=== PATIENT | male | born 1980 | race Caucasian/White ===

== ENCOUNTER 2020-09-14 20:02 | Inpatient (IN) | payer MEDICARE, OTHER ==
[2020-09-14] MEDS ORDERED: HYDROmorphone 1 MG/ML 1 ML SYRINGE IVP STA (20:09)
--- NOTE | 2020-09-14 20:11 | ED ---
Chest Pain HPI - General Stated Complaint: Chest Pain Time Seen by Provider: 09/14/20 20:02 Source: patient, EMS, RN notes reviewed Mode of arrival: EMS - History of Present Illness Initial Comments: this is a 40-year-old male with a prior history of heart disease and heart attack who also states he has some aortic notation from Marfan's disease who states he had the onset this morning of retrosternal chest pain was sharp in nature and radiating to his left arm proximal T7 or 8/10 severity nothing makes it better nothing makes it worse. No cough no fevers chills sweats no phlegm production he states feels identical to his previous heart attack however. He also states he is ALLERGIC to nitroglycerin gets a rash and hives from it. He did get aspirin in route MD Complaint: chest pain - Related Data Allergies Allergy/AdvReac Type Severity Reaction Status Date / Time nitroglycerin AdvReac Itching Verified 09/14/20 20:16 Review of Systems ROS Statement: Those systems with pertinent positive or pertinent negative responses have been documented in the HPI. ROS Other: All systems not noted in ROS Statement are negative. EKG Findings - EKG Results: EKG: interpreted by AMY, sinus rhythm (Sinus rhythm rate 64. Interval 144 QRS duration 110 daily since QTC 374/385 rightward axis and complete right bundle- branch block. No old EKGs currently available for comparison.) Past Medical History Past Medical History: Coronary Artery Disease (CAD), Chest Pain / Angina, Neurologic Disorder History of Any Multi-Drug Resistant Organisms: None Reported Past Surgical History: Appendectomy, Heart Catheterization Past Psychological History: No Psychological Hx Reported Smoking Status: Current every day smoker Past Alcohol Use History: None Reported Past Drug Use History: None Reported General Exam - General Exam Comments Initial Comments: is a well-developed asthenic appearing male who is awake alert oriented 3 General appearance: alert, anxious Head exam: Present: atraumatic, normocephalic, normal inspection Eye exam: Present: normal appearance, PERRL, EOMI. Absent: scleral icterus, conjunctival injection, periorbital swelling ENT exam: Present: normal exam, mucous membranes moist Neck exam: Present: normal inspection, full ROM, other (no stridor JVD or bruits). Absent: tenderness, meningismus, lymphadenopathy Respiratory exam: Present: normal lung sounds bilaterally. Absent: respiratory distress, wheezes, rales, rhonchi, stridor, chest wall tenderness Cardiovascular Exam: Present: regular rate, normal rhythm, normal heart sounds. Absent: systolic murmur, diastolic murmur, rubs, gallop, clicks GI/Abdominal exam: Present: soft, normal bowel sounds. Absent: distended, tenderness, guarding, rebound, rigid, bruit, pulsatile mass, hernia Extremities exam: Present: normal inspection, full ROM, normal capillary refill. Absent: tenderness, pedal edema, joint swelling, calf tenderness Back exam: Present: normal inspection Neurological exam: Present: alert, oriented X3, CN II-XII intact Psychiatric exam: Present: normal affect, normal mood Skin exam: Present: warm, dry, intact, normal color. Absent: rash Course Vital Signs 09/14/20 20:06 Temperature 98.3 F Pulse Rate 64 Respiratory 18 Rate Blood Pressure 151/106 O2 Sat by Pulse 100 Oximetry Chest Pain MDM - MDM I did review the imaging no acute findings. I did discuss findings with patient family as well as with Dr. Josue's service. Patient be admitted with cardiology consultation. Initial enzymes and EKG. A be unremarkable for acute findings. Patient still has some chest pain however. Critical Care Time Critical Care Time: Yes Total Critical Care Time: 31 Critical Care Time: 31 minutes of critical care time includes initial presentation with history physical labs x-rays reevaluation patient to responsive therapy discuss with the patient family regarding findings discussion with the EMS personnel arrival. Admission orders documentation the above Disposition Clinical Impression: Chest pain, Unstable angina pectoris Disposition: ADMITTED IP TO THIS [facility] Condition: Fair Referrals: None,Stated [Primary Care Provider] - 1-2 days
[2020-09-14 20:34] LABS: Basophils # (A) 0.1 k/uL (0-0.2); Basophils % (A) 1 %; Eosinophils # (A) 0.4 k/uL (0-0.7); Eosinophils % (A) 5 %; HCT 45.7 % (39.0-53.0); Lymphocytes # (A) 2.3 k/uL (1.0-4.8); Lymphocytes % (A) 31 %; MCH 32.4 pg (25.0-35.0); MCHC 32.8 g/dL (31.0-37.0); MCV 98.8 fL (80.0-100.0); Mean Platelet Volume 7.7; Monocytes # (A) 0.4 k/uL (0-1.0); Monocytes % (A) 6 %; Neutrophils # (A) 4.1 k/uL (1.3-7.7); Neutrophils % (A) 55 %; Platelet Count 266 k/uL (150-450); RBC 4.62 m/uL (4.30-5.90); RDW 12.2 % (11.5-15.5); WBC 7.4 k/uL (3.8-10.6)
[2020-09-14 21:03] LABS: ALT 14 U/L (4-49); AST 18 U/L (17-59); African American GFR (CKD) >90 (>60 ml/min/1.73 sqM); Albumin 3.8 g/dL (3.5-5.0); Alkaline Phosphatase 67 U/L (38-126); Anion Gap 4 mmol/L; Blood Urea Nitrogen 13 mg/dL (9-20); Calcium 9.3 mg/dL (8.4-10.2); Carbon Dioxide 25 mmol/L (22-30); Chloride 108 mmol/L (98-107); Creatine Kinase 60 U/L (55-170); Glucose 91 mg/dL (74-99); Lipase 141 U/L (23-300); Non-African American GFR(CKD) >90 (>60 ml/min/1.73 sqM); Potassium 4.1 mmol/L (3.5-5.1); Sodium 137 mmol/L (137-145); Total Bilirubin 0.3 mg/dL (0.2-1.3); Total Protein 6.5 g/dL (6.3-8.2)
--- NOTE | 2020-09-14 21:07 | XR ---
EXAMINATION TYPE: XR chest 2V DATE OF EXAM: 09/14/2020 COMPARISON: NONE HISTORY: Chest pain TECHNIQUE: Frontal and lateral views of the chest are obtained. FINDINGS: There is no focal air space opacity, pleural effusion, or pneumothorax seen. The cardiac silhouette size is within normal limits. Atrial septal defect repair device is in place. The osseous structures are intact. IMPRESSION: No acute cardiopulmonary process.
[2020-09-14 21:09] LABS: D-Dimer 0.2 mg/L FEU (<0.60); INR 1.1 (<1.2); Partial Thromboplastin Time 26.9 sec (22.0-30.0); Prothrombin Time 10.8 sec (9.0-12.0)
[2020-09-14] MEDS ORDERED: fentaNYL (PF) 50 MCG/ML 2 ML AMP IVP STA (21:11)
[2020-09-14] MEDS ORDERED: HEPARIN SODIUM,PORCINE 5,000 UNIT/ML 1 ML VIAL IV ONE (21:14)
[2020-09-14] MEDS ORDERED: HEPARIN SOD,PORK IN 0.45% NACL 25,000 UNIT in 0.45% NACL 1 250ML.BAG IV SCH (21:15)
[2020-09-14] MEDS ORDERED: ORPHENADRINE 30 MG/ML 2 ML VIAL IVP STA (21:19)
[2020-09-14] MEDS: SODIUM CHLORIDE 0.9% 1,000 ML IV SCH (21:42)
[2020-09-15] MEDS: HYDROmorphone 1 MG/ML 1 ML SYRINGE IVP PRN ×6 (00:05→21:51)
[2020-09-15 03:30] LABS: Cholesterol 176 mg/dL (<200); HDL Cholesterol 29 mg/dL (40-60); LDL Cholesterol,Calculated 133 mg/dL (0-99); Triglycerides 70 mg/dL (<150)
--- NOTE | 2020-09-15 07:54 | P.HPIM ---
History of Present Illness This is a pleasant 38 years old male with possible history of coronary artery disease status post cardiac cath, Marfan syndrome with enlarged aorta. 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 Presents because of chest pain of 2 days' duration associated with numbness of left arm and left face, Patient's Chest pain central, radiated into the left arm about 7/10 in severity. Like heaviness Also patient is complaining of from the distal dizziness He denies any leg pain or swelling, no change in urine or bowel habits. No fever Patient smokes about 1 pack per day, he was counseled and he wants to quit and agrees to the nicotine patch Vitals stable except from slight bradycardia with heart rate around 54. unremarkable cbc, bmp, liver enzymes. serial troponin 3 less than 0.012. d- dimer is negative at 0.2 EKG showing normal sinus rhythm at [address] T changes Chest x-ray: No acute process by radiologist Emergency room patient was started on heparin drip and aspirin 81 mg daily which is home dose. Review of Systems CONSTITUTIONAL: No fever, no malaise, no fatigue. HEENT: No recent visual problems or hearing problems. Denied any sore throat. CARDIOVASCULAR: No orthopnea, PND, no palpitations, no syncope. PULMONARY: No shortness of breath, no cough, no hemoptysis. GASTROINTESTINAL: No diarrhea, no nausea, no vomiting, no abdominal pain. Normoactive bowel sounds. NEUROLOGICAL: No headaches, no weakness HEMATOLOGICAL: Denies any bleeding or petechiae. GENITOURINARY: Denies any burning micturition, frequency, or urgency. MUSCULOSKELETAL/RHEUMATOLOGICAL: Denies any joint pain, swelling, or any muscle pain. ENDOCRINE: Denies any polyuria or polydipsia. Past Medical History Past Medical History: Coronary Artery Disease (CAD), Chest Pain / Angina, Neurologic Disorder Additional Past Medical History / Comment(s): Marfan's, "enlarged aorta" History of Any Multi-Drug Resistant Organisms: None Reported Past Surgical History: Appendectomy, Heart Catheterization Past Psychological History: No Psychological Hx Reported Smoking Status: Current every day smoker Past Alcohol Use History: None Reported Past Drug Use History: None Reported - Past Family History Father Family Medical History: CVA/TIA, Hypertension, Myocardial Infarction ([place]) Additional Family Medical History / Comment(s): states he D/T brain aneurysm Mother Family Medical History: Hypertension Additional Family Medical History / Comment(s): states cancer runs on her side of the family Medications and Allergies Home Medications Medication Instructions Recorded Confirmed Type Aspirin EC [Ecotrin Low Dose] 81 mg PO DAILY 09/14/20 09/14/20 History Metoprolol Tartrate [Lopressor] 25 mg PO BID 09/14/20 09/14/20 History Allergies Allergy/AdvReac Type Severity Reaction Status Date / Time nitroglycerin AdvReac Itching Verified 09/14/20 22:32 Physical Exam Vitals: Vital Signs Temp Pulse Pulse Resp BP BP Pulse Ox 09/15/20 03:30 97.5 F L 50 L 16 101/63 97 09/15/20 00:13 98 F 54 L 17 112/70 100 09/14/20 22:42 53 L 12 123/83 98 09/14/20 21:54 57 L 12 120/87 98 09/14/20 20:06 98.3 F 64 18 151/106 100 Intake and Output 09/14/20 09/14/20 09/15/20 14:59 22:59 06:59 Intake Total 48.854 Balance 48.854 Intake: Intake, IV Titration 48.854 Amount Heparin Sod,Pork in 0.45% 48.854 NaCl 25,000 unit In 0.45 % NaCl 1 250ml.bag @ 12 UNITS/KG/HR 8.165 mls/hr IV .Q24H [facility] Rx#: [id number] Other: Voiding Method Toilet # Voids 2 Weight 68.039 kg 68.039 kg GENERAL: The patient is alert and oriented x3, not in any acute distress. Well developed, well nourished. HEENT: Pupils are round and equally reacting to light. EOMI. No scleral icterus. No conjunctival pallor. Normocephalic, atraumatic. No pharyngeal erythema. No thyromegaly. CARDIOVASCULAR: S1 and S2 present. No murmurs, rubs, or gallops. PULMONARY: Chest is clear to auscultation, no wheezing or crackles. ABDOMEN: Soft, nontender, nondistended, normoactive bowel sounds. No palpable organomegaly. MUSCULOSKELETAL: No joint swelling or deformity. EXTREMITIES: No cyanosis, clubbing, or pedal edema. NEUROLOGICAL: Gross neurological examination did not reveal any focal deficits. SKIN: No rashes. No petechiae Results CBC & Chem 7: 09/14/20 20:13 09/14/20 20:45 Labs: Abnormal Lab Results - Last 24 Hours (Table) 09/14/20 09/15/20 09/15/20 Range/Units 20:45 03:07 03:07 APTT 62.5 H (22.0-30.0) sec Chloride 108 H (98-107) mmol/L LDL Cholesterol, Calc 133 H (0-99) mg/dL HDL Cholesterol 29 L (40-60) mg/dL Thrombosis Risk Factor Assmnt - Choose All That Apply Each Factor Represents 1 point: Age 41-60 years Other Risk Factors: No Other congenital or acquired thrombophilia - If yes, enter type in comment: No Thrombosis Risk Factor Assessment Total Risk Factor Score: 1 Thrombosis Risk Factor Assessment Level: Low Risk Assessment and Plan Assessment: Chest pain, rule out cardiac causes. d-dimer is negative at 0.2 Numbness of the left face and arm with some dizziness Marfan syndrome History of enlarged aorta Plan: This is a pleasant 38 years old male who presents with chest pain, rule out cardiac causes with cardiology consult, we'll do serial troponin. Check echocardiogram. Also call for neurology consult for his numbness and dizziness with checking carotid duplex Labs and medication were reviewed.. Continue same treatment. Continue with symptomatic treatment. Resume home medication. Monitor lytes and vitals. DVT and GI prophylaxis. Further recommendations depends on the clinical course of the patient DVT prophylaxis: Subcutaneous heparin GI Prophylaxis: Pepcid
--- NOTE | 2020-09-15 08:47 | US ---
EXAMINATION TYPE: US carotid duplex BILAT DATE OF EXAM: 09/15/2020 COMPARISON: NONE CLINICAL HISTORY: numbness of face and left arm. Numbness EXAM MEASUREMENTS: RIGHT: Peak Systolic Velocity (PSV) cm/sec ----- Right CCA: 88.3 ----- Right ICA: 76.7 ----- Right ECA: 69.5 ICA/CCA ratio: 0.9 RIGHT: End Diastole cm/sec ----- Right CCA: 26.0 ----- Right ICA: 21.4 ----- Right ECA: 15.6 LEFT: Peak Systolic Velocity (PSV) cm/sec ----- Left CCA: 101 ----- Left ICA: 87.9 ----- Left ECA: 60.8 ICA/CCA ratio: 0.9 LEFT: End Diastole cm/sec ----- Left CCA: 33.8 ----- Left ICA: 34.9 ----- Left ECA: 10.9 VERTEBRALS (direction of flow): Right Vertebral: Antegrade Left Vertebral: Antegrade Rhythm: Normal No significant atherosclerotic change seen. No significant stenosis seen. IMPRESSION: No hemodynamically significant stenosis bilaterally. Criteria for Assigning % of Stenosis / Diameter reduction (Estimation based on the indirect measurements of the internal carotid artery velocities (ICA PSV). 1. Normal (no stenosis)=ICA PSV < 125 cm/s: ratio < 2.0: ICA EDV<40 cm/s. 2. Less than 50% stenosis=ICA PSV < 125 cm/s: ratio < 2.0: ICA EDV<40 cm/s. 3. 50 to 69% stenosis=ICA PSV of 125 to 230 cm/s: ration 2.0 ? 4.0: ICA EDV 40-100 cm/s. 4. Greater than 70% stenosis to near occlusion= ICA PSV > 230 cm/s: ratio > 4.0: ICA EDV > 100 cm/s. 5. Near occlusion= ICA PSV velocities may be low or undetectable: variable ratio and ICA EDV. 6. Total occlusion=unable to detect flow.
[2020-09-15] MEDS ORDERED: ASPIRIN 325 MG TAB PO SCH (09:00)
[2020-09-15] MEDS: ASPIRIN 81 MG PO SCH (09:08)
[2020-09-15] MEDS: METOPROLOL TARTRATE 25 MG TAB PO SCH ×2 (09:08→21:50)
[2020-09-15] MEDS: NICOTINE 21MG/24HR PATCH TRANSDERM SCH (09:08)
--- NOTE | 2020-09-15 10:05 | ECHOF ---
Referral Reason:Rule out heart disease MEASUREMENTS -------- HEIGHT: 182.9 cm WEIGHT: 68.0 kg BP: 101/63 RVIDd: 3.3 cm (< 3.3) IVSd: 1.1 cm (0.6 - 1.1) LVIDd: 4.9 cm (3.9 - 5.3) LVPWd: 1.0 cm (0.6 - 1.1) IVSs: 1.6 cm LVIDs: 3.2 cm LVPWs: 1.5 cm LA Diam: 3.4 cm (2.7 - 3.8) LAESV Index (A-L): 24.30 ml/m Ao Diam: 4.0 cm (2.0 - 3.7) AV Cusp: 2.6 cm (1.5 - 2.6) MV EXCURSION: 17.802 mm (> 18.000) MV EF SLOPE: 214 mm/s (70 - 150) EPSS: 1.0 cm MV E Max: 0.82 m/s MV DecT: 218 ms MV A Max: 0.44 m/s MV E/A Ratio: 1.87 FINDINGS -------- Resting bradycardia (HR<60bpm). This was a technically excellent study. The left ventricular size is normal. Left ventricular wall thickness is normal. Overall left vent ricular systolic function is low-normal with, an EF between 50 - 55 %. The right ventricle is mildly enlarged. There is an interatrial closure device in place without evidence of shunt. The aortic valve is trileaflet and appears structurally normal. There is trace mitral regurgitation. Trace tricuspid regurgitation present. There is no pulmonic regurgitation present. The aortic root is dilated measuring 4.0cm. Normal inferior vena cava with normal inspiratory collapse consistent with estimated right atrial pre ssure of 5 mmHg. There is no pericardial effusion. CONCLUSIONS -------- 1. The left ventricular size is normal. 2. Left ventricular wall thickness is normal. 3. Overall left ventricular systolic function is low-normal with, an EF between 50 - 55 %. 4. The right ventricle is mildly enlarged. 5. There is an interatrial closure device in place without evidence of shunt. 6. There is trace mitral regurgitation. 7. Trace tricuspid regurgitation present. 8. The aortic root is dilated measuring 4.0cm. 9. There is no pericardial effusion. SOLUTION SALES SENIOR EXECUTIVE: DESIREE Carey
--- NOTE | 2020-09-15 11:20 | P.CNNES ---
History of Present Illness Consult date: 09/15/20 Requesting physician: Morris Garcia Reason for Consult: Numbness left face and arm History of Present Illness: This is a 40-year-old right-handed gentleman with medical history of Marfan syndrome with enlarged aorta, coronary artery status post cardiac cath disease and tobacco use who presented emergency department on 09/14/2020 for chest pain for the past 2 days. The chest pain is retrosternal chest pain and it's sharp radiating to left arm. He feels the chest pain as like having this. The chest pain is also associate with numbness of the left side of the face entire, and entire left upper and lower extremity as well as that he felt like he is having weakness of the left and upper extremity. He felt like his numbness is a somewhat improving but he still has it. He denies any similar presentation in the past. He denies of any of slurring the speech or any difficulty getting his words out. Patient is on aspirin 81 mg at home. He is not on any statins at home. He smokes half a pack a day and he's been smoking for more than 20 years. He was a workup at the [facility] over at [place] because of his chest pain and was diagnosed with Marfan syndrome 2 years ago. He does not know his family history Workup in the hospital consisted of: Initial vital signs is blood pressure of 151/106, heart rate of 64, respiratory of 18, temperature of 98.3 Fahrenheit oral and pulse ox of 100% at room air. EKG is reported as normal sinus rhythm. Ventricle rate of 64. Rightward axis. Incomplete right bundle branch block. Borderline EKG. Bilateral carotid duplex is reported as no hemodynamically significant stenosis bilaterally. 2-D echo was reported as left ventricle size is normal light. Ejection fraction between 50-55%. Aortic root is dilated measuring 4.0 cm. As a result in the ED the patient was started on a heparin drip once and then was continued aspirin 81 mg. Review of Systems Review of system: The 12 point system was reviewed and apparent positive and negative per HPI. Past Medical History Past Medical History: Coronary Artery Disease (CAD), Chest Pain / Angina, Neurologic Disorder Additional Past Medical History / Comment(s): Marfan's, "enlarged aorta" History of Any Multi-Drug Resistant Organisms: None Reported Past Surgical History: Appendectomy, Heart Catheterization Past Psychological History: No Psychological Hx Reported Smoking Status: Current every day smoker Past Alcohol Use History: None Reported Past Drug Use History: None Reported - Past Family History Father Family Medical History: CVA/TIA, Hypertension, Myocardial Infarction ([place]) Additional Family Medical History / Comment(s): states he D/T brain aneurysm Mother Family Medical History: Hypertension Additional Family Medical History / Comment(s): states cancer runs on her side of the family Medications and Allergies Home Medications Medication Instructions Recorded Confirmed Type Aspirin EC [Ecotrin Low Dose] 81 mg PO DAILY 09/14/20 09/14/20 History Metoprolol Tartrate [Lopressor] 25 mg PO BID 09/14/20 09/14/20 History Allergies Allergy/AdvReac Type Severity Reaction Status Date / Time nitroglycerin AdvReac Itching Verified 09/14/20 22:32 Physical Examination - Vital Signs Vital Signs: Vital Signs Temp Pulse Pulse Resp BP BP Pulse Ox 09/15/20 08:14 69 16 09/15/20 08:13 97.9 F 69 16 106/67 98 09/15/20 03:30 97.5 F L 50 L 16 101/63 97 09/15/20 00:13 98 F 54 L 17 112/70 100 09/14/20 22:42 53 L 12 123/83 98 09/14/20 21:54 57 L 12 120/87 98 09/14/20 20:06 98.3 F 64 18 151/106 100 Intake and Output 09/14/20 09/15/20 09/15/20 22:59 06:59 14:59 Intake Total 48.854 Balance 48.854 Intake: Intake, IV Titration 48.854 Amount Heparin Sod,Pork in 0.45% 48.854 NaCl 25,000 unit In 0.45 % NaCl 1 250ml.bag @ 12 UNITS/KG/HR 8.165 mls/hr IV .Q24H [facility] Rx#: [id number] Other: Voiding Method Toilet Toilet # Voids 2 2 Weight 68.039 kg 68.039 kg GENERAL: The patient is lying in bed and is not in acute distress. CHEST: The heart rate is regular rate rhythm. No murmurs to auscultation. No carotid bruit bilaterally. LUNG: Clear to auscultation bilaterally no wheezing noted throughout. Not labored breathing. ABDOMEN/GI: Bowel sounds present in all 4 quadrants. No tenderness to palpation throughout. NEUROLOGICAL: Higher mental function: The patient is awake, alert, oriented to self, place and time. Patient is following commands. No aphasia and no neglect. Cranial nerves: The pupils are round, equal and reactive to light. Visual fieldsis full over the right eye but left eye is blind (since ). Primary gaze is right eye is center while left eye is deviated to lateral position. Extraocular movement is intact no nystagmus is noted. Facial sensation is decreased to touch over the entire left. The facial strength is normal throughout. Hearing is normal bilaterally to hand rub. Tongue is midline and moved [id number] without any difficulty. No dysarthria is noted. Shoulder shrug is normal bilaterally. Motor: Gait is defered. The strength is 5- over the entire left and seems more distally at times and I had to ask the patient for his cooperation. Otherwise5 over 5 throughout. Normal tone and bulk. Cerebellum: Normal finger to nose bilaterally. Sensation: Sensation is decreased to light touch throughout. Reflexes (right/left): 2+ throughout. Plantars are downgoing bilaterally. Results Lipid profile: Triglyceride of 70, cholesterol of 176, LDL of 133 and HDL of 29. Calcium of 9.3. AST of 18 and ALT of 14 Coagulation study: PT of 10.8, INR of 1.1, PTT of 26.9. D-dimer is 0.20. - Laboratory Findings CBC and BMP: 09/14/20 20:13 09/14/20 20:45 Abnormal Lab Findings: Abnormal Labs 09/14/20 09/15/20 09/15/20 20:45 03:07 03:07 APTT 62.5 H Chloride 108 H LDL Cholesterol, Calc 133 H HDL Cholesterol 29 L 09/15/20 07:22 APTT 49.3 H Chloride LDL Cholesterol, Calc HDL Cholesterol Assessment and Plan Assessment: This is a 40-year-old gentleman with medical history of Marfan syndrome with enlarged aorta who presented emergency department on 09/14/2020 for chest pain for the past 2 days associated with numbness of entire face and upper and lower extremity as well as weakness over the left upper and lower extremity. Paresthesia over the left side as well as weakness over the left upper and lower extremity possible concerning for stroke (risk factors are Marfan syndrome, tobacco use and the coronary artery disease) Retrosternal chest pain associated with numbness and pain over the left arm as well as the face Marfan syndrome History of enlarged aorta Tobacco use Plan: I ordered CT of the head to rule out any intracranial process. The CT of the head does not explain the patient's symptoms of the left sided weakness as well as numbness that then the other further with the MRI the brain without gadolinium. I also ordered vitamin B12, folate and TSH Recommend continuing aspirin 81 mg (home dose) and now with the added Plavix 75 mg daily in addition. Started the patient on Lipitor 40 mg daily which will be of benefit to him because of his cardiac history as well as the his LDL is 133. LDL goal is less than 70 for stroke. Continue cardiac monitoring Consulted the PT and OT Regarding the patient the cardiac symptoms will defer to the cardiology team. Patient was counseled on tobacco cessation. Thank you for the consultation. Hung Brady MD Neuro-Hospitalist Time with Patient: Greater than 30
--- NOTE | 2020-09-15 12:32 | P.CRDCN ---
History of Present Illness History of present illness: HISTORY OF PRESENTING ILLNESS This is a pleasant 40-year-old male past medical history significant for Marfan's syndrome, atrial septal defect status post closure device approximately 5 years ago exact details unavailable, TIA and chronic nicotine dependence. He follows in the office with a rcis in [place], he is unsure of the name. We have been asked to see in consultation for chest pain. He states he woke up yesterday with a discomfort in the midsternal/epigastric region that radiated to the left shoulder and down the left arm associated with left arm numbness and tingling. The pain is not reproducible on exam and not worsened by movement of his torso or arm. It is not respirophasic. He denies associated shortness of breath, dizziness, palpitations, nausea, vomiting or diaphoresis. He states the most concerning thing for him at this point is the left arm numbness and tingling which feels similar to how he felt in the past when he was diagnosed with a TIA. DIAGNOSTICS EKG reveals sinus mechanism with right bundle branch block. Chest xray negative for any acute cardiopulmonary process. Bilateral carotid Doppler negative for hemodynamically significant stenosis bilaterally. Laboratory reviewed, CBC unremarkable, d-dimer 0.2, sodium 137, potassium 4.1, creatinine 0.79, magnesium 2.0, cardiac enzymes negative 3, NT proBNP 16, LDL 133 and HDL 29. Current cardiac medications include Lopressor 25 mg twice a day and aspirin 81 mg daily. REVIEW OF SYSTEMS At the time of my exam: CONSTITUTIONAL: Denies fever or chills. CARDIOVASCULAR: Denies chest pain, shortness of breath, orthopnea, PND or palpitations. RESPIRATORY: Denies cough. GASTROINTESTINAL: Denies abdominal pain, diarrhea, constipation, nausea or vomiting. MUSCULOSKELETAL: Denies myalgias. NEUROLOGIC: Denies numbness, tingling or weakness. ENDOCRINE: Denies fatigue, weight change, polydipsia or polyurina. GENITOURINARY: Denies burning, hematuria or urgency with micturation. HEMATOLOGIC: Denies history of anemia or bleeding. PHYSICAL EXAMINATION Blood pressure 106/67 heart rate 69 afebrile and maintaining oxygen saturation on room air. CONSTITUTIONAL: No apparent distress. HEENT: Head is normocephalic. Pupils are equal, round. Sclerae anicteric. Mucous membranes of the mouth are moist. No JVD. No carotid bruit. CHEST EXAMINATION: Lungs are clear to auscultation. No chest wall tenderness is noted on palpation or with deep breathing. HEART EXAMINATION: Regular rate and rhythm. S1, S2 heard. No murmurs, gallops or rub. ABDOMEN: Soft, nontender. Positive bowel sounds. EXTREMITIES: 2+ peripheral pulses, no lower extremity edema and no calf tenderness. NEUROLOGIC EXAMINATION: Patient is awake, alert and oriented x3. ASSESSMENT Chest pain, atypical for angina. Marfan's syndrome Atrial septal defect status post closure device History of TIA Chronic nicotine dependence PLAN An acute coronary event has been ruled out. We discussed the option of undergoing stress testing with the patient and he would prefer to have this done with his primary rcis as he knows him quite well. This is reasonable given his atypical presentation and no evidence of myocardial injury. Neurology is also following secondary to left arm numbness and has recommended a CT of the brain. Thank you kindly for this consultation. Nurse Practitioner note has been reviewed, I agree with a documented findings and plan of care. Patient was seen and examined. Past Medical History Past Medical History: Coronary Artery Disease (CAD), Chest Pain / Angina, Neurologic Disorder Additional Past Medical History / Comment(s): Marfan's, "enlarged aorta" History of Any Multi-Drug Resistant Organisms: None Reported Past Surgical History: Appendectomy, Heart Catheterization Past Psychological History: No Psychological Hx Reported Smoking Status: Current every day smoker Past Alcohol Use History: None Reported Past Drug Use History: None Reported - Past Family History Father Family Medical History: CVA/TIA, Hypertension, Myocardial Infarction ([place]) Additional Family Medical History / Comment(s): states he D/T brain aneurysm Mother Family Medical History: Hypertension Additional Family Medical History / Comment(s): states cancer runs on her side of the family Medications and Allergies Home Medications Medication Instructions Recorded Confirmed Type Aspirin EC [Ecotrin Low Dose] 81 mg PO DAILY 09/14/20 09/14/20 History Metoprolol Tartrate [Lopressor] 25 mg PO BID 09/14/20 09/14/20 History Allergies Allergy/AdvReac Type Severity Reaction Status Date / Time nitroglycerin AdvReac Itching Verified 09/14/20 22:32 Physical Exam Vitals: Vital Signs Temp Pulse Pulse Resp BP BP Pulse Ox 11/03/20 08:14 69 16 09/15/20 08:13 97.9 F 69 16 106/67 98 09/15/20 03:30 97.5 F L 50 L 16 101/63 97 09/15/20 00:13 98 F 54 L 17 112/70 100 09/14/20 22:42 53 L 12 123/83 98 09/14/20 21:54 57 L 12 120/87 98 09/14/20 20:06 98.3 F 64 18 151/106 100 Intake and Output 09/14/20 09/15/20 09/15/20 22:59 06:59 14:59 Intake Total 48.854 Balance 48.854 Intake: Intake, IV Titration 48.854 Amount Heparin Sod,Pork in 0.45% 48.854 NaCl 25,000 unit In 0.45 % NaCl 1 250ml.bag @ 12 UNITS/KG/HR 8.165 mls/hr IV .Q24H [facility] Rx#: [id number] Other: Voiding Method Toilet Toilet # Voids 2 2 Weight 68.039 kg 68.039 kg Results 09/14/20 20:13 09/14/20 20:45 Cardiac Enzymes 09/14/20 09/14/20 09/14/20 Range/Units 20:13 20:45 23:09 AST 18 (17-59) U/L Troponin I <0.012 <0.012 (0.000-0.034) ng/mL 09/15/20 Range/Units 03:07 AST (17-59) U/L Troponin I <0.012 (0.000-0.034) ng/mL Coagulation 09/14/20 09/15/20 09/15/20 Range/Units 20:45 03:07 07:22 PT 10.8 (9.0-12.0) sec APTT 26.9 62.5 H 49.3 H (22.0-30.0) sec Lipids 09/15/20 Range/Units 03:07 Triglycerides 70 (<150) mg/dL Cholesterol 176 (<200) mg/dL HDL Cholesterol 29 L (40-60) mg/dL CBC 09/14/20 Range/Units 20:13 WBC 7.4 (3.8-10.6) k/uL RBC 4.62 (4.30-5.90) m/uL Hgb 15.0 (13.0-17.5) gm/dL Hct 45.7 (39.0-53.0) % Plt Count 266 (150-450) k/uL Comprehensive Metabolic Panel 09/14/20 Range/Units 20:45 Sodium 137 (137-145) mmol/L Potassium 4.1 (3.5-5.1) mmol/L Chloride 108 H (98-107) mmol/L Carbon Dioxide 25 (22-30) mmol/L BUN 13 (9-20) mg/dL Creatinine 0.79 (0.66-1.25) mg/dL Glucose 91 (74-99) mg/dL Calcium 9.3 (8.4-10.2) mg/dL AST 18 (17-59) U/L ALT 14 (4-49) U/L Alkaline Phosphatase 67 (38-126) U/L Total Protein 6.5 (6.3-8.2) g/dL Albumin 3.8 (3.5-5.0) g/dL Current Medications Generic Name Dose Route Start Last Admin Trade Name Freq PRN Reason Stop Dose Admin Aspirin 81 mg 09/15/20 09:00 09/15/20 09:08 Aspirin 81 Mg PO 81 mg DAILY KARRIE Administration Hydromorphone HCl 1 mg 09/14/20 21:18 09/15/20 09:08 Hydromorphone 1 Mg/Ml 1 Ml Syringe IVP 1 mg Q3HR PRN Administration Pain Sodium Chloride 1,000 mls @ 20 mls/hr 09/14/20 21:15 09/14/20 21:42 Saline 0.9% IV 20 mls/hr .Q24H KARRIE Administration Metoprolol Tartrate 25 mg 09/15/20 09:00 09/15/20 09:08 Metoprolol Tartrate 25 Mg Tab PO 25 mg BID KARRIE Administration Nicotine 1 patch 09/15/20 09:00 09/15/20 09:08 Nicotine 21mg/24hr Patch TRANSDERM 1 patch DAILY KARRIE Administration Intake and Output 09/14/20 09/15/20 09/15/20 22:59 06:59 14:59 Intake Total 48.854 Balance 48.854 Intake: Intake, IV Titration 48.854 Amount Heparin Sod,Pork in 0.45% 48.854 NaCl 25,000 unit In 0.45 % NaCl 1 250ml.bag @ 12 UNITS/KG/HR 8.165 mls/hr IV .Q24H [facility] Rx#: [id number] Other: Voiding Method Toilet Toilet # Voids 2 2 Weight 68.039 kg 68.039 kg 09/14/20 20:13 09/14/20 20:45
--- NOTE | 2020-09-15 12:49 | CT ---
EXAMINATION TYPE: CT brain wo con DATE OF EXAM: 09/15/2020 COMPARISON: None. HISTORY: Left arm numbness. CT DLP: 1061.7 mGycm. Automated Exposure Control for Dose Reduction was Utilized. TECHNIQUE: CT scan of the head is performed without contrast. FINDINGS: There is no acute intracranial hemorrhage, mass effect, or midline shift identified. The ventricles and sulci are within normal limits in size. Townsend-white matter differentiation is maintain ed. Mild to moderate mucosal thickening in visualized portion of left maxillary sinus otherwise paran larry sinuses are clear. Bilateral lens deviation noted. Correlate for underlying strabismus. IMPRESSION: No acute intracranial hemorrhage or midline shift is seen.
[2020-09-15] MEDS: CLOPIDOGREL 75 MG TAB PO SCH (13:56)
[2020-09-15] MEDS ORDERED: ATORVASTATIN 40 MG TAB PO SCH (21:00)
[2020-09-15] MEDS: SODIUM CHLORIDE 0.9% 1,000 ML IV SCH (21:50)
[2020-09-16] MEDS: HYDROmorphone 1 MG/ML 1 ML SYRINGE IVP PRN ×4 (01:36→14:45)
[2020-09-16 08:24] VITALS: RESP 18
[2020-09-16] MEDS: METOPROLOL TARTRATE 25 MG TAB PO SCH (09:27)
[2020-09-16] MEDS: ASPIRIN 81 MG PO SCH (09:27)
[2020-09-16] MEDS: NICOTINE 21MG/24HR PATCH TRANSDERM SCH (09:27)
[2020-09-16] MEDS: CLOPIDOGREL 75 MG TAB PO SCH (09:27)
--- NOTE | 2020-09-16 10:09 | P.PN ---
Subjective HISTORY OF PRESENTING ILLNESS This is a pleasant 40-year-old male past medical history significant for Marfan's syndrome, atrial septal defect status post closure device approximately 5 years ago exact details unavailable, TIA and chronic nicotine dependence. He follows in the office with a product management intern in [place], he is unsure of the name. He is seen and examined sitting up in bed getting ready to work with PT/OT. He continues to feel numbness of the left anterior shoulder and down the left arm with a discomfort associated with the numbness. He is scheduled to undergo an MRI today. Blood pressure 107/64 heart rate 97 afebrile and maintaining oxygen saturation on room air. Currently maintained on aspirin 81 mg daily, plavix 75 mg daily (per neurology) atorvastatin 40 mg daily and lopressor 25 mg BID. PHYSICAL EXAMINATION CONSTITUTIONAL: No apparent distress. HEENT: Head is normocephalic. Pupils are equal, round. Sclerae anicteric. Mucous membranes of the mouth are moist. No JVD. No carotid bruit. CHEST EXAMINATION: Lungs are clear to auscultation. No chest wall tenderness is noted on palpation or with deep breathing. HEART EXAMINATION: Regular rate and rhythm. S1, S2 heard. No murmurs, gallops or rub. EXTREMITIES: 2+ peripheral pulses, no lower extremity edema and no calf tenderness. ASSESSMENT Chest pain, atypical for angina. Marfan's syndrome Atrial septal defect status post closure device History of TIA Dyslipidemia Chronic nicotine dependence PLAN Stable from a cardiac perspective. Ongoing treatment with neurology. Outpatient follow up with his product management intern. We will follow along as needed, please reconsult if further recommendations needed. Nurse Practitioner note has been reviewed, I agree with a documented findings and plan of care. Patient was seen and examined. Objective - Vital Signs Vital signs: Vital Signs Temp 97.8 F 09/16/20 08:22 Pulse 97 09/16/20 08:22 Resp 18 09/16/20 08:22 BP 107/64 09/16/20 08:22 Pulse Ox 97 09/16/20 08:22 Intake & Output 09/15/20 09/16/20 09/16/20 18:59 06:59 18:59 Intake Total 400 Balance 400 Intake: Oral 400 Other: Voiding Method Toilet Toilet # Voids 2 1 - Labs CBC & Chem 7: 09/14/20 20:13 09/14/20 20:45 Labs: Abnormal Lab Results - Last 24 Hours (Table) 09/15/20 Range/Units 03:07 Vitamin B12 980.0 H (200.0-944.0) pg/mL
--- NOTE | 2020-09-16 16:52 | MR ---
EXAMINATION TYPE: MR brain/cspine wo DATE OF EXAM: 09/16/2020 COMPARISON: CT brain from yesterday. HISTORY: Left sided numbness/pain TECHNIQUE: Multiplanar, multisequence imaging of the brain and brainstem lateral cervical spine are a ll performed without IV contrast. FINDINGS: Brain: Diffusion weighted images demonstrate no evidence of a recent infarct or other diffusion abnormality. There is no worrisome extra-axial fluid collections. The ventricular system and cisternal spaces are normal in size and appearance. The brain volume is age appropriate. Occasional scattered small focu s of T2 hyperintensity, for reference a 4 mm posterior left frontal subcortical lesion axial image 22 noted. Midline structures demonstrate normal morphology. The craniocervical junction appears within normal limits. Normal vascular flow voids are present. Mild to moderate mucosal thickening in the left maxil irma sinus is redemonstrated. Globes are intact bilaterally. IMPRESSION: Minimal nonspecific white matter changes. Mild to moderate chronic left maxillary sinus r edemonstrated. No MRI evidence for acute infarct. C-spine: Exam noted suboptimal as patient unable to hold still FINDINGS: Sagittal images of the cervical spine show the craniocervical junction to appear within nor mal limits. The cervical and upper thoracic spinal cord is normal in course, caliber, and signal. Sl ight grade 1 retrolisthesis C4 on C5, C5 on C6, and C6 on C7. The vertebral body and intravertebral disk heights are normal. Small hemangioma involving the anterior right superior C7 vertebra. Axial images degraded by motion artifact. There is mild broad-based posterior disc protrusion C5-C6 l evel minimally effacing anterior thecal sac otherwise no significant disc herniation is present. Cerv ical neural foramina are patent bilaterally. IMPRESSION: Suboptimal study. No obvious abnormal signal in spinal cord or focal large disc herniatio n.
--- NOTE | 2020-09-16 17:44 | P.PN ---
Subjective This is a pleasant 38 years old male with possible history of coronary artery disease status post cardiac cath, Marfan syndrome with enlarged aorta. Patient does not follow up with PCP however he has a fuel cell builder Dr. kitchen at [facility] Presents because of chest pain of 2 days' duration associated with numbness of left arm and left face, Patient's Chest pain central, radiated into the left arm about 7/10 in severity. Like heaviness Also patient is complaining of from the distal dizziness He denies any leg pain or swelling, no change in urine or bowel habits. No fever Patient smokes about 1 pack per day, he was counseled and he wants to quit and agrees to the nicotine patch Vitals stable except from slight bradycardia with heart rate around 54. unremarkable cbc, bmp, liver enzymes. serial troponin 3 less than 0.012. d- dimer is negative at 0.2 EKG showing normal sinus rhythm at [address] T changes Chest x-ray: No acute process by radiologist Emergency room patient was started on heparin drip and aspirin 81 mg daily which is home dose. 09/16/2020 Patient still complaining from the same symptoms, still have some mild chest pain, d-dimer is negative at 0.2, fuel cell builder cleared him for discharge and the recommend patient to follow-up with his on fuel cell builder Dr. Kitchen on [facility] for possible stress test as an outpatient, I told the patient and agree with this plan Internal Medicine Physician Assistant recommended MRI of the brain and cervical spine which was negative. B12 is elevated. Occupational and physical therapist recommended home health care Patient continued on aspirin, Plavix was added by neurology service. Possible discharge in 24-48 hours if he keeps improvement Objective - Vital Signs Vital signs: Vital Signs Temp 97.8 F 09/16/20 08:22 Pulse 97 09/16/20 09:00 Resp 18 09/16/20 09:00 BP 107/64 09/16/20 08:22 Pulse Ox 97 09/16/20 08:22 Intake & Output 09/15/20 09/16/20 09/16/20 18:59 06:59 18:59 Intake Total 400 480 Balance 400 480 Intake: Oral 400 480 Other: Voiding Method Toilet Toilet Toilet # Voids 2 1 - Exam GENERAL: The patient is alert and oriented x3, not in any acute distress. Well developed, well nourished. HEENT: Pupils are round and equally reacting to light. EOMI. No scleral icterus. No conjunctival pallor. Normocephalic, atraumatic. No pharyngeal erythema. No thyromegaly. CARDIOVASCULAR: S1 and S2 present. No murmurs, rubs, or gallops. PULMONARY: Chest is clear to auscultation, no wheezing or crackles. ABDOMEN: Soft, nontender, nondistended, normoactive bowel sounds. No palpable organomegaly. MUSCULOSKELETAL: No joint swelling or deformity. EXTREMITIES: No cyanosis, clubbing, or pedal edema. -NEUROLOGICAL: Gross neurological examination did not reveal any focal deficits. Left arm only mildly weaker than right side SKIN: No rashes. no petechiae. - Labs CBC & Chem 7: 09/14/20 20:13 09/14/20 20:45 Labs: Abnormal Lab Results - Last 24 Hours (Table) 09/15/20 Range/Units 03:07 Vitamin B12 980.0 H (200.0-944.0) pg/mL Assessment and Plan Assessment: Chest pain, rule out cardiac causes. d-dimer is negative at 0.2 Numbness of the left face and arm with some dizziness Marfan syndrome History of enlarged aorta Plan: This is a pleasant 38 years old male who presents with chest pain, rule out cardiac causes with cardiology consult, we'll do serial troponin. Check echocardiogram. Also call for neurology consult for his numbness and dizziness with checking carotid duplex Labs and medication were reviewed.. Continue same treatment. Continue with symptomatic treatment. Resume home medication. Monitor lytes and vitals. DVT and GI prophylaxis. Further recommendations depends on the clinical course of the patient DVT prophylaxis: Subcutaneous heparin GI Prophylaxis: Pepcid
[2020-09-16 18:09] VITALS: BP 116/71; PULSE 62; TEMP 98.2
--- NOTE | 2020-09-16 19:34 | P.PN ---
Subjective Progress Note Date: 09/16/20 Patient was seen at bedside and he states that he continues to have numbness over the face and the left upper extremity. He is continues to feel like weak in the left upper extremity. Otherwise there is no worsening of his weakness and there is no new neurological deficits. Objective - Vital Signs Vital signs: Vital Signs Temp 98.2 F 09/16/20 17:00 Pulse 62 09/16/20 17:00 Resp 18 09/16/20 17:00 BP 116/71 09/16/20 17:00 Pulse Ox 99 09/16/20 17:00 Intake & Output 09/16/20 09/16/20 09/17/20 06:59 18:59 06:59 Intake Total 880 Balance 880 Intake: Intake, IV Titration 160 Amount Sodium Chloride 0.9% 1, 160 000 ml @ 20 mls/hr IV . Q24H [facility] Rx#:[id number] Oral 720 Other: Voiding Method Toilet Toilet # Voids 1 2 - Exam GENERAL: The patient is lying in bed and is not in acute distress. CHEST: The heart rate is regular rate rhythm. No murmurs to auscultation. LUNG: Clear to auscultation bilaterally no wheezing noted throughout. Not labored breathing. NEUROLOGICAL: Higher mental function: The patient is awake, alert, oriented to self, place and time. Patient is following commands. No aphasia and no neglect. Cranial nerves: The pupils are round, equal and reactive to light. Visual f ieldsis full over the right eye but left eye is blind (since ). Primary gaze is right eye is center while left eye is deviated to lateral position. Extraocular movement is intact no nystagmus is noted. Facial sensation is decreased to touch over the entire left. The facial strength is normal throughout. Hearing is normal bilaterally to hand rub. Tongue is midline and moved [id number] without any difficulty. No dysarthria is noted. Shoulder shrug is normal bilaterally. Motor: Gait is defered. The strength is 5- over the entire left and seems more distally at times and seemed some effort related. Otherwise5 over 5 throughout. Normal tone and bulk. Cerebellum: Normal finger to nose bilaterally. Sensation: Sensation is decreased to light touch throughout. Reflexes (right/left): 2+ throughout. Plantars are downgoing bilaterally. - Labs CBC & Chem 7: 09/14/20 20:13 09/14/20 20:45 Labs: Abnormal Lab Results - Last 24 Hours (Table) 09/15/20 Range/Units 03:07 Vitamin B12 980.0 H (200.0-944.0) pg/mL Assessment and Plan Assessment: This is a 40-year-old gentleman with medical history of Marfan syndrome with enlarged aorta who presented emergency department on 09/14/2020 for chest pain for the past 2 days associated with numbness of entire face and upper and lower extremity as well as weakness over the left upper and lower extremity. Paresthesia over the left side as well as weakness over the left upper and lower extremity--unknown etiology (It is not stroke or TIA). On exam some effort relate with examination and if weak on left upper extremity is minimally. Retrosternal chest pain associated with numbness and pain over the left arm as well as the face Marfan syndrome History of enlarged aorta Tobacco use Plan: MR the brain as well as MRI of the C-spine without had a linear: Was reported as MR the brain was minimal nonspecific white matter changes. Mild to moderate chronic left maxillary sinus redemonstrated. No evidence for acute infarct. I personally reviewed the MRI the brain and I do agree with the report. MRI of the C-spine was reported as exam noted suboptimal as the patient is unable to hold still. No obvious abnormal signal in the spinal cord or focal large disc herniation. I personally reviewed the MRI of the C-spine and I do agree with the report. Vitamin B12: 980 (normal), rbc folate 461 (normal) and TSH: 2.89 Recommend continuing aspirin 81 mg (home dose). There is no need for Plavix since this is not a transient ischemic attack or stroke. Continue Lipitor 40 mg daily. LDL goal is less than 70 for stroke. Continue cardiac monitoring Consulted the PT and OT Regarding the patient the cardiac symptoms will defer to the cardiology team. Patient was counseled on tobacco cessation. I notified the patient as well as the primary team and that if the patient continues to have these symptoms that he needs to follow-up with his neurologist for further workup. Patient is clear from neurology perspective. Hung Brady MD Neuro-Hospitalist Time with Patient: Less than 30
== END 2020-09-16 19:00 | disposition home or self-care (01) | DRG 313 ==
LOC: EC 20:02 → 3NCARDOBS 21:14 → OBSVTOIN 09-16 16:13
PROVIDERS: ADMIT Internal Medicine; ATTEND Internal Medicine
DX: R07.89 Other chest pain (principal); I25.110 Atherosclerotic heart disease of native coronary artery with unstable angina pectoris; Q87.40 Marfan syndrome, unspecified; R20.2 Paresthesia of skin; Z71.6 Tobacco abuse counseling; F17.210 Nicotine dependence, cigarettes, uncomplicated; I25.2 Old myocardial infarction; I45.10 Unspecified right bundle-branch block; N18.30 Chronic kidney disease, stage 3 unspecified; Z79.02 Long term (current) use of antithrombotics/antiplatelets; Z79.82 Long term (current) use of aspirin; Z79.899 Other long term (current) drug therapy; Z82.49 Family history of ischemic heart disease and other diseases of the circulatory system; Z86.73 Personal history of transient ischemic attack (TIA), and cerebral infarction without residual deficits; Z87.74 Personal history of (corrected) congenital malformations of heart and circulatory system; Z88.8 Allergy status to other drugs, medicaments and biological substances; Z82.3 Family history of stroke; Z80.9 Family history of malignant neoplasm, unspecified; R53.1 Weakness; R00.1 Bradycardia, unspecified
CPT/HCPCS: 36415; 70450; 70551; 71046; 72141; 80053; 80061; 82550; 82607; 82747; 83690; 83735; 83880; 84443; 84484; 85025; 85379; 85610; 85730; 93005; 93306; 93880; 96365; 96375; 99291

== ENCOUNTER 2020-09-22 21:55 | Emergency (ER) | payer MEDICARE, OTHER ==
[2020-09-22 22:01] VITALS: TEMP 98
[2020-09-22] MEDS ORDERED: ASPIRIN 81 MG PO STA (22:09)
[2020-09-22 22:37] LABS: Basophils # (A) 0.1 k/uL (0-0.2); Basophils % (A) 1 %; Eosinophils # (A) 0.2 k/uL (0-0.7); Eosinophils % (A) 3 %; HCT 45.8 % (39.0-53.0); HGB 15.5 gm/dL (13.0-17.5); Lymphocytes # (A) 2.5 k/uL (1.0-4.8); Lymphocytes % (A) 28 %; MCH 32.2 pg (25.0-35.0); MCHC 33.8 g/dL (31.0-37.0); MCV 95.2 fL (80.0-100.0); Monocytes # (A) 0.6 k/uL (0-1.0); Monocytes % (A) 6 %; Neutrophils # (A) 5.2 k/uL (1.3-7.7); Neutrophils % (A) 59 %; Platelet Count 294 k/uL (150-450); RBC 4.81 m/uL (4.30-5.90); WBC 8.9 k/uL (3.8-10.6)
--- NOTE | 2020-09-22 22:40 | ED ---
Chest Pain HPI - General Chief Complaint: Chest Pain Stated Complaint: Chest Pain Time Seen by Provider: 09/22/20 22:09 Source: patient Mode of arrival: wheelchair Limitations: no limitations - History of Present Illness Initial Comments: this patient is a 40-year-old man who presents with complaint that he is having left calf pain that started yesterday in the afternoon. He describes it as aching pain. The pain is worse if he feels his calf. No other worsening or relieving factors. This afternoon he felt like he was having some chest pain. After the patient told his fiance they felt he should be evaluated for possibility of having a blood clot. No dyspnea or diaphoresis. No palpitations, lightheadedness or syncope. No hemoptysis or cough. MD Complaint: chest pain -: hour(s) Onset: during rest Pain Location: left chest Pain Radiation: LUE Severity: moderate Quality: aching Consistency: constant Improves With: nothing Worsens With: nothing Treatments Prior to Arrival: none - Related Data Home Medications Medication Instructions Recorded Confirmed Aspirin EC [Ecotrin Low Dose] 81 mg PO DAILY 09/14/20 09/22/20 Metoprolol Tartrate [Lopressor] 25 mg PO BID 09/14/20 09/22/20 Atorvastatin [Lipitor] 40 mg PO DAILY 09/22/20 09/22/20 Previous Rx's Medication Instructions Recorded Nicotine 21Mg/24Hr Patch [Habitrol] 1 patch TRANSDERM DAILY #10 patch 09/16/20 Clopidogrel [Plavix] 75 mg PO DAILY #14 tablet 09/23/20 Allergies Allergy/AdvReac Type Severity Reaction Status Date / Time nitroglycerin AdvReac Itching Verified 09/22/20 23:51 Review of Systems ROS Statement: Those systems with pertinent positive or pertinent negative responses have been documented in the HPI. ROS Other: All systems not noted in ROS Statement are negative. Constitutional: Denies: fever, chills Respiratory: Denies: cough, dyspnea, wheezes, hemoptysis Cardiovascular: Reports: chest pain. Denies: palpitations, edema, syncope Gastrointestinal: Denies: abdominal pain, nausea, vomiting Genitourinary: Denies: dysuria, hematuria Musculoskeletal: Denies: back pain Skin: Denies: rash Neurological: Denies: headache, weakness, numbness Past Medical History Past Medical History: Coronary Artery Disease (CAD), Chest Pain / Angina, Neurologic Disorder Additional Past Medical History / Comment(s): Marfan's, "enlarged aorta" History of Any Multi-Drug Resistant Organisms: None Reported Past Surgical History: Appendectomy, Heart Catheterization Past Psychological History: No Psychological Hx Reported Smoking Status: Current every day smoker Past Alcohol Use History: None Reported Past Drug Use History: None Reported - Past Family History Father Family Medical History: CVA/TIA, Hypertension, Myocardial Infarction ([place]) Additional Family Medical History / Comment(s): states he D/T brain aneurysm Mother Family Medical History: Hypertension Additional Family Medical History / Comment(s): states cancer runs on her side of the family General Exam Limitations: no limitations General appearance: alert, in no apparent distress Head exam: Present: atraumatic, normocephalic Eye exam: Present: normal appearance. Absent: scleral icterus, conjunctival injection ENT exam: Present: normal oropharynx Neck exam: Present: normal inspection Respiratory exam: Present: normal lung sounds bilaterally. Absent: respiratory distress, wheezes, rales, rhonchi, stridor, chest wall tenderness Cardiovascular Exam: Present: regular rate, normal rhythm, normal heart sounds. Absent: systolic murmur, diastolic murmur, rubs, gallop GI/Abdominal exam: Present: soft. Absent: distended, tenderness, guarding, rebound, rigid, mass Extremities exam: Present: normal inspection, normal capillary refill. Absent: pedal edema, calf tenderness Back exam: Present: normal inspection, CVA tenderness (L). Absent: CVA tenderness (R) Neurological exam: Present: alert Skin exam: Present: warm, dry, intact, normal color. Absent: rash Course Vital Signs 09/22/20 09/22/20 21:59 23:47 Temperature 98.0 F Pulse Rate 78 70 Respiratory 20 15 Rate Blood Pressure 119/69 111/70 O2 Sat by Pulse 100 99 Oximetry Chest Pain MDM - [facility] patient's 40-year-old man presenting to be evaluated for calf pain, also having a little bit of chest discomfort and was concerned about blood clot. The studies are negative. The patient didhave a little bit of persistent left calf pain, but notes he has been working on this with the elastic band therapy for stroke. Patient given additional analgesia and will follow-up. He states he does have appointment with his silhouette artist on the following day. He does note that he does not have his Plavix and requested refill, I did prescribe small amount of this to bridge him through to his silhouette artist appointment Disposition Clinical Impression: Chest pain Disposition: HOME SELF-CARE Condition: Good Instructions (If sedation given, give patient instructions): Chest Pain (ED) Prescriptions: Clopidogrel [Plavix] 75 mg PO DAILY #14 tablet Is patient prescribed a controlled substance at d/c from ED?: No Referrals: Caridad Todd MD [Primary Care Provider] - 1-2 days
[2020-09-22 22:45] LABS: INR 1.1 (<1.2); Partial Thromboplastin Time 27.3 sec (22.0-30.0); Prothrombin Time 10.9 sec (9.0-12.0)
[2020-09-22 22:46] LABS: ALT 24 U/L (4-49); AST 25 U/L (17-59); African American GFR (CKD) >90 (>60 ml/min/1.73 sqM); Albumin 4.4 g/dL (3.5-5.0); Alkaline Phosphatase 64 U/L (38-126); Anion Gap 7 mmol/L; Blood Urea Nitrogen 17 mg/dL (9-20); Calcium 9.9 mg/dL (8.4-10.2); Carbon Dioxide 25 mmol/L (22-30); Chloride 108 mmol/L (98-107); Glucose 76 mg/dL (74-99); Non-African American GFR(CKD) >90 (>60 ml/min/1.73 sqM); Potassium 4.3 mmol/L (3.5-5.1); Sodium 140 mmol/L (137-145); Total Bilirubin 0.4 mg/dL (0.2-1.3); Total Protein 7.2 g/dL (6.3-8.2)
--- NOTE | 2020-09-22 22:48 | XR ---
EXAMINATION TYPE: XR chest 2V DATE OF EXAM: 09/22/2020 COMPARISON: September 14, 2020 HISTORY: Chest pain TECHNIQUE: FINDINGS: Heart and mediastinum are normal. Lungs are clear. Diaphragm is normal. There is cardiac conde rgery noted. Bony thorax is intact. IMPRESSION: No cardiopulmonary disease. No change.
[2020-09-22] MEDS ORDERED: MORPHINE SULFATE 4 MG/ML SYRINGE IV STA (23:29)
--- NOTE | 2020-09-22 23:36 | US ---
EXAMINATION TYPE: US venous doppler duplex LE LT DATE OF EXAM: 09/22/2020 11:13 PM COMPARISON: NONE CLINICAL HISTORY: calf pain. Left calf pain x 1 day. No hx of DVT. Patient does not take a blood thin ner. SIDE PERFORMED: Left TECHNIQUE: The lower extremity deep venous system is examined utilizing real time linear array sonog beatriz with graded compression, doppler sonography and color-flow sonography. VESSELS IMAGED: Common Femoral Vein Deep Femoral Vein Greater Saphenous Vein * Femoral Vein Popliteal Vein Small Saphenous Vein * Proximal Calf Veins (* superficial vessels) Left Leg: No evidence of DVT in veins imaged at this time from prox calf veins to CFV. IMPRESSION: No evidence of deep vein thrombosis in the left leg.
[2020-09-23] MEDS ORDERED: HYDROcodone/APAP 7.5-325MG 1 EACH TAB PO ONE (00:35)
[2020-09-23 00:52] VITALS: BP 118/70; PULSE 75; RESP 17
== END 2020-09-23 01:09 | disposition home or self-care (01) ==
LOC: EC 21:55
DX: R07.9 Chest pain, unspecified (principal); M79.662 Pain in left lower leg; F17.200 Nicotine dependence, unspecified, uncomplicated; Z95.5 Presence of coronary angioplasty implant and graft; Z90.49 Acquired absence of other specified parts of digestive tract; I20.9 Angina pectoris, unspecified; Z79.82 Long term (current) use of aspirin; Z88.8 Allergy status to other drugs, medicaments and biological substances; Z82.49 Family history of ischemic heart disease and other diseases of the circulatory system
CPT/HCPCS: 36415; 93005; 85379; 80053; 83735; 84484; 85025; 85610; 85730; 71046; 93971; 99285; 96374; J2270

== ENCOUNTER 2020-12-02 16:45 | Emergency (ER) | payer MEDICARE, OTHER ==
[2020-12-02 16:54] VITALS: RESP 18; TEMP 97.6
[2020-12-02] MEDS ORDERED: HYDROmorphone 0.5 MG/0.5 ML SYRINGE IVP STA ×2 (17:34→19:08)
[2020-12-02] MEDS ORDERED: ONDANSETRON 4 MG/2 ML VIAL IVP STA (17:39)
--- NOTE | 2020-12-02 17:42 | ED ---
Abdominal Pain HPI - General Chief Complaint: Abdominal Pain Stated Complaint: Gallbladder pain Time Seen by Provider: 12/02/20 17:14 Source: patient Mode of arrival: ambulatory Limitations: no limitations - History of Present Illness Initial Comments: 40-year-old male presenting to the emergency room with a chief complaint abdominal pain nausea vomiting. Patient states the pain started yesterday after he had a greasy meal. He also reports associated nausea with multiple episodes of nonbilious and nonbloody vomiting. Denies any radiation of the pain. He also reports having some right-sided back pain. He denies any urinary symptoms. He denies any constipation or diarrhea. Denies any chest pain or shortness of breath or back pain. Denies hematuria, hematochezia or melena. Does report abdominal surgical history of appendectomy. Denies night sweats or chills. Denies dysuria, increased urgency or frequency. - Related Data Home Medications Medication Instructions Recorded Confirmed Aspirin EC [Ecotrin Low Dose] 81 mg PO DAILY 09/14/20 09/22/20 Metoprolol Tartrate [Lopressor] 25 mg PO BID 09/14/20 09/22/20 Atorvastatin [Lipitor] 40 mg PO DAILY 09/22/20 09/22/20 Previous Rx's Medication Instructions Recorded Nicotine 21Mg/24Hr Patch [Habitrol] 1 patch TRANSDERM DAILY #10 patch 09/16/20 Clopidogrel [Plavix] 75 mg PO DAILY #14 tablet 09/23/20 Ondansetron Odt [Zofran Odt] 4 mg PO Q8HR PRN #20 tab 12/02/20 Allergies Allergy/AdvReac Type Severity Reaction Status Date / Time nitroglycerin AdvReac Itching Verified 12/02/20 16:53 Review of Systems ROS Statement: Those systems with pertinent positive or pertinent negative responses have been documented in the HPI. ROS Other: All systems not noted in ROS Statement are negative. Past Medical History Past Medical History: Coronary Artery Disease (CAD), Chest Pain / Angina, Neurologic Disorder Additional Past Medical History / Comment(s): Marfan's, "enlarged aorta" History of Any Multi-Drug Resistant Organisms: None Reported Past Surgical History: Appendectomy, Heart Catheterization Past Psychological History: No Psychological Hx Reported Smoking Status: Current every day smoker Past Alcohol Use History: None Reported Past Drug Use History: None Reported - Past Family History Father Family Medical History: CVA/TIA, Hypertension, Myocardial Infarction ([place]) Additional Family Medical History / Comment(s): states he D/T brain aneurysm Mother Family Medical History: Hypertension Additional Family Medical History / Comment(s): states cancer runs on her side of the family General Exam Limitations: no limitations General appearance: alert, in no apparent distress Head exam: Present: atraumatic, normocephalic, normal inspection Eye exam: Present: normal appearance, PERRL, EOMI Pupils: Present: normal accommodation ENT exam: Present: normal exam, normal oropharynx, mucous membranes moist, TM's normal bilaterally, normal external ear exam Neck exam: Present: normal inspection, full ROM. Absent: tenderness Respiratory exam: Present: normal lung sounds bilaterally. Absent: respiratory distress, wheezes, rales, rhonchi, stridor Cardiovascular Exam: Present: regular rate, normal rhythm, normal heart sounds GI/Abdominal exam: Present: soft, tenderness (Right upper quadrant abdominal pain. Positive Loco's sign.). Absent: distended Extremities exam: Present: normal inspection, full ROM, normal capillary refill. Absent: tenderness, pedal edema, joint swelling Back exam: Present: normal inspection, full ROM, CVA tenderness (R) (Mild). Absent: tenderness, CVA tenderness (L) Neurological exam: Present: alert, oriented X3 Psychiatric exam: Present: normal affect, normal mood Skin exam: Present: warm, dry, intact, normal color Course Vital Signs 12/02/20 12/02/20 16:51 19:02 Temperature 97.6 F Pulse Rate 101 H 66 Respiratory 18 18 Rate Blood Pressure 120/79 124/88 O2 Sat by Pulse 100 97 Oximetry Medical Decision Making - Medical Decision Making 40-year-old male presenting to the emergency department with chief complaint abdominal pain. On physical examination, patient has right upper quadrant tende rness to palpation. Also has mild right CVA tenderness. He was given IV fluids, antiemetics and analgesia. Right upper quadrant ultrasound is unremarkable. CBC unremarkable. INR levels were 2.8 and were only obtain because the patient is on Coumadin. They are within therapeutic levels. CT abd omen and pelvis reveals no renal calculi but does reveal perinephric edema likely suggestive of a passed kidney stone or a non-opaque. No clinical correlation for acute pyelonephritis at this time. Patient will be discharged with a Tylenol 3 starter pack. Advised to follow-up with urology. We'll also be given Zofran. Case discussed with Dr. Bernstein - Lab Data Result diagrams: 12/02/20 17:35 12/02/20 17:35 Lab Results 12/02/20 12/02/20 12/02/20 Range/Units 17:35 17:35 17:35 WBC 9.1 (3.8-10.6) k/uL RBC 4.82 (4.30-5.90) m/uL Hgb 15.6 (13.0-17.5) gm/dL Hct 45.3 (39.0-53.0) % MCV 94.0 (80.0-100.0) fL MCH 32.4 (25.0-35.0) pg MCHC 34.4 (31.0-37.0) g/dL RDW 12.2 (11.5-15.5) % Plt Count 252 (150-450) k/uL MPV 6.7 Neutrophils % [employer] Neutrophils % (Manual) 55 % Band Neuts % (Manual) 1 % Lymphocytes % [employer] Lymphocytes % (Manual) 39 % Monocytes % [employer] Monocytes % (Manual) 5 % Eosinophils % [employer] Basophils % [employer] Metamyelocytes % 1 % Neutrophils # [employer] Neutrophils # (Manual) 5.00 (1.3-7.7) k/uL Lymphocytes # [employer] Lymphocytes # (Manual) 3.55 (1.0-4.8) k/uL Monocytes # [employer] Monocytes # (Manual) 0.46 (0-1.0) k/uL Eosinophils # [employer] Basophils # [employer] Metamyelocytes # (Man) 0.09 H (0) k/uL Nucleated RBCs 0 (0-0) /100 WBC PT 26.6 H (9.0-12.0) sec INR 2.8 H (<1.2) Sodium 135 L (137-145) mmol/L Potassium 4.0 (3.5-5.1) mmol/L Chloride 104 (98-107) mmol/L Carbon Dioxide 26 (22-30) mmol/L Anion Gap 5 mmol/L BUN 14 (9-20) mg/dL Creatinine 0.76 (0.66-1.25) mg/dL Est GFR (CKD-EPI)AfAm >90 (>60 ml/min/1.73 sqM) Est GFR (CKD-EPI)NonAf >90 (>60 ml/min/1.73 sqM) Glucose 97 (74-99) mg/dL Plasma Lactic Acid Chas (0.7-2.0) mmol/L Calcium 9.4 (8.4-10.2) mg/dL Total Bilirubin 0.5 (0.2-1.3) mg/dL AST 21 (17-59) U/L ALT 29 (4-49) U/L Alkaline Phosphatase 81 (38-126) U/L Total Protein 7.0 (6.3-8.2) g/dL Albumin 4.1 (3.5-5.0) g/dL Lipase 68 (23-300) U/L Urine Color Urine Appearance (Clear) Urine pH (5.0-8.0) Ur Specific [place] (1.001-1.035) Urine Protein (Negative) Urine Glucose (UA) (Negative) Urine Ketones (Negative) Urine Blood (Negative) Urine Nitrite (Negative) Urine Bilirubin (Negative) Urine Urobilinogen (<2.0) mg/dL Ur Leukocyte Esterase (Negative) Urine RBC (0-5) /hpf Urine WBC (0-5) /hpf Ur Squamous Epith Cells (0-4) /hpf Urine Bacteria (None) /hpf Urine Mucus (None) /hpf 12/02/20 12/02/20 Range/Units 17:35 17:57 WBC (3.8-10.6) k/uL RBC (4.30-5.90) m/uL Hgb (13.0-17.5) gm/dL Hct (39.0-53.0) % MCV (80.0-100.0) fL MCH (25.0-35.0) pg MCHC (31.0-37.0) g/dL RDW (11.5-15.5) % Plt Count (150-450) k/uL MPV Neutrophils % Neutrophils % (Manual) % Band Neuts % (Manual) % Lymphocytes % Lymphocytes % (Manual) % Monocytes % Monocytes % (Manual) % Eosinophils % Basophils % Metamyelocytes % % Neutrophils # Neutrophils # (Manual) (1.3-7.7) k/uL Lymphocytes # Lymphocytes # (Manual) (1.0-4.8) k/uL Monocytes # Monocytes # (Manual) (0-1.0) k/uL Eosinophils # Basophils # Metamyelocytes # (Man) (0) k/uL Nucleated RBCs (0-0) /100 WBC PT (9.0-12.0) sec INR (<1.2) Sodium (137-145) mmol/L Potassium (3.5-5.1) mmol/L Chloride (98-107) mmol/L Carbon Dioxide (22-30) mmol/L Anion Gap mmol/L BUN (9-20) mg/dL Creatinine (0.66-1.25) mg/dL Est GFR (CKD-EPI)AfAm (>60 ml/min/1.73 sqM) Est GFR (CKD-EPI)NonAf (>60 ml/min/1.73 sqM) Glucose (74-99) mg/dL Plasma Lactic Acid Chas 0.7 (0.7-2.0) mmol/L Calcium (8.4-10.2) mg/dL Total Bilirubin (0.2-1.3) mg/dL AST (17-59) U/L ALT (4-49) U/L Alkaline Phosphatase (38-126) U/L Total Protein (6.3-8.2) g/dL Albumin (3.5-5.0) g/dL Lipase (23-300) U/L Urine Color Yellow Urine Appearance Clear (Clear) Urine pH 5.5 (5.0-8.0) Ur Specific [place] 1.019 (1.001-1.035) Urine Protein Trace H (Negative) Urine Glucose (UA) Negative (Negative) Urine Ketones Negative (Negative) Urine Blood Small H (Negative) Urine Nitrite Negative (Negative) Urine Bilirubin Negative (Negative) Urine Urobilinogen <2.0 (<2.0) mg/dL Ur Leukocyte Esterase Negative (Negative) Urine RBC 6 H (0-5) /hpf Urine WBC 2 (0-5) /hpf Ur Squamous Epith Cells <1 (0-4) /hpf Urine Bacteria Rare H (None) /hpf Urine Mucus Many H (None) /hpf - EKG Data EKG Comments: Sinus rhythm, right axis deviation Ventricular rate 60, CO 154, QRS 108, QTC 394. Disposition Clinical Impression: Abdominal pain, Microscopic hematuria Disposition: HOME SELF-CARE Condition: Stable Instructions (If sedation given, give patient instructions): Abdominal Pain (ED) Additional Instructions: Follow-up with urology. Return to emergency department if symptoms worsen. Prescriptions: Ondansetron Odt [Zofran Odt] 4 mg PO Q8HR PRN #20 tab PRN Reason: Nausea Is patient prescribed a controlled substance at d/c from ED?: No Referrals: Caridad Todd MD [Primary Care Provider] - 1-2 days Stephen Zafar MD [STAFF PHYSICIAN] - 1-2 days Time of Disposition: 20:06
[2020-12-02 17:43] LABS: HCT 45.3 % (39.0-53.0); HGB 15.6 gm/dL (13.0-17.5); MCH 32.4 pg (25.0-35.0); MCHC 34.4 g/dL (31.0-37.0); Mean Platelet Volume 6.7; Platelet Count 252 k/uL (150-450); RBC 4.82 m/uL (4.30-5.90); RDW 12.2 % (11.5-15.5); WBC 9.1 k/uL (3.8-10.6)
[2020-12-02 17:55] LABS: INR 2.8 (<1.2); Prothrombin Time 26.6 sec (9.0-12.0)
[2020-12-02 17:57] LABS: ALT 29 U/L (4-49); AST 21 U/L (17-59); African American GFR (CKD) >90 (>60 ml/min/1.73 sqM); Albumin 4.1 g/dL (3.5-5.0); Alkaline Phosphatase 81 U/L (38-126); Anion Gap 5 mmol/L; Blood Urea Nitrogen 14 mg/dL (9-20); Calcium 9.4 mg/dL (8.4-10.2); Carbon Dioxide 26 mmol/L (22-30); Chloride 104 mmol/L (98-107); Glucose 97 mg/dL (74-99); Lipase 68 U/L (23-300); Non-African American GFR(CKD) >90 (>60 ml/min/1.73 sqM); Sodium 135 mmol/L (137-145); Total Bilirubin 0.5 mg/dL (0.2-1.3)
[2020-12-02 18:21] LABS: Appearance,Urine Clear (Clear); Bacteria,Urine Rare /hpf; Bilirubin,Urine Negative (Negative); Blood,Urine Small (Negative); Color,Urine Yellow; Glucose,Urine (UA) Negative (Negative); Ketones,Urine Negative (Negative); Leukocyte Esterase,Urine Negative (Negative); Mucus,Urine Many /hpf; Nitrite,Urine Negative (Negative); PH, Urine 5.5 (5.0-8.0); Protein,Urine Trace (Negative); RBC,Urine 6 /hpf (0-5); Specific Gravity,Urine 1.019 (1.001-1.035); Squamous Epithelial Cell,Urine <1 /hpf (0-4); Urobilinogen,Urine <2.0 mg/dL (<2.0); WBC,Urine 2 /hpf (0-5)
--- NOTE | 2020-12-02 18:44 | US ---
EXAMINATION TYPE: US abdomen limited DATE OF EXAM: 12/02/2020 COMPARISON: NONE CLINICAL HISTORY: Postprandial right upper quadrant pain. Postprandial RUQ pain x 2 days. Hx appendec keren. EXAM MEASUREMENTS: Liver Length: 14.0 cm Gallbladder Wall: 0.24 cm CBD: 0.29 cm Right Kidney: 10.6 x 6.0 x 5.0 cm Limited due to gas. Pancreas: Not well seen due to gas. Liver: No abnormalities seen. Gallbladder: Minimal internal echoes seen versus artifact. Fold seen near neck. Evidence for sonographic Loco's sign: Patient feels tenderness over RUQ. CBD: Portion seen appears to be wnl. Right Kidney: No hydronephrosis or masses seen IMPRESSION: No definite gallstones. No dilated ducts. No focal liver defect. Negative exam.
[2020-12-02 19:02] VITALS: BP 124/88; PULSE 66
[2020-12-02 19:21] LABS: Band Neutrophils % 1 %; Lymphocytes # (M) 3.55 k/uL (1.0-4.8); Metamyelocytes # (M) 0.09 k/uL (0); Metamyelocytes % 1 %; Monocytes # (M) 0.46 k/uL (0-1.0); Neutrophils % (M) 55 %; Nucleated Red Blood Cells 0 /100 WBC (0-0); Total Cells Counted 200
--- NOTE | 2020-12-02 19:33 | CT ---
EXAMINATION TYPE: CT abdomen pelvis wo con DATE OF EXAM: 12/02/2020 COMPARISON: None HISTORY: Right flank pain CT DLP: 418.1 mGycm Automated exposure control for dose reduction was used. Images were obtained from the diaphragm to the floor the pelvis without contrast. There is patchy interstitial density and atelectasis at the posterior lung bases. There is no pleural effusion. Heart size is normal.. There is no pericardial effusion. Liver spleen pancreas stomach gallbladder appear intact. Bile ducts are not dilated. There is no adrenal mass. Kidneys have normal size. There is slight fullness of the right renal pelvi s compared to the left. There is minimal edema at the right renal hilum. The right ureter however is not dilated to any extent. I do not see a definite calculus in the right ureter. Bladder distends smo othly. There is no retroperitoneal adenopathy. I see no evidence of a renal calculus. There is minima l right-sided perinephric edema. There is no free fluid in the pelvis. There is no evidence of pelvic mass. I see no evidence of a mas s. Lumbar vertebra have normal alignment. Posterior elements are intact. Bony pelvis is intact. Disc spa jh are fairly normal. There is no compression fracture. Appendix is not seen. There appears to be clips from appendectomy. There is no mesenteric edema. There is no ascites or free air. There is no bowel obstruction. IMPRESSION: Mild right-sided perinephric edema and very minimal ectasia of the right renal pelvis. No calculus id entified. This could relate to obstruction due to nonopaque stone or recently passed stone. I would a lso consider acute pyelonephritis.
[2020-12-02] MEDS ORDERED: ACET/COD 300 MG/30 MG STARTER PACK 6 TAB BTL PO STA (20:05)
[2020-12-02] MEDS ORDERED: ONDANSETRON 4 MG ODT STARTER PACK 2 TAB BTL PO STA ×2 (20:24)
== END 2020-12-02 20:48 | disposition home or self-care (01) ==
LOC: EC 16:45
DX: R10.11 Right upper quadrant pain (principal); R31.29 Other microscopic hematuria; M54.9 Dorsalgia, unspecified; I25.119 Atherosclerotic heart disease of native coronary artery with unspecified angina pectoris; F17.200 Nicotine dependence, unspecified, uncomplicated; Z79.899 Other long term (current) drug therapy; Z79.82 Long term (current) use of aspirin; Z88.8 Allergy status to other drugs, medicaments and biological substances; Z90.89 Acquired absence of other organs
CPT/HCPCS: 36415; 93005; 80053; 83605; 83690; 85025; 85610; 81001; 76705; 74176; 99284; 96374; 96375; 96376; J2405; S0119; J1170

== ENCOUNTER 2021-04-04 20:49 | Emergency (ER) | payer MEDICARE, OTHER ==
[2021-04-04 21:14] LABS: Glucose,Whole Blood 104 mg/dL (75-99)
[2021-04-04 21:21] LABS: Basophils # (A) 0.1 k/uL (0-0.2); Basophils % (A) 1 %; Eosinophils # (A) 0.2 k/uL (0-0.7); Eosinophils % (A) 3 %; HCT 43.7 % (39.0-53.0); HGB 14.2 gm/dL (13.0-17.5); Lymphocytes # (A) 2.3 k/uL (1.0-4.8); Lymphocytes % (A) 31 %; MCH 31.4 pg (25.0-35.0); MCHC 32.6 g/dL (31.0-37.0); MCV 96.3 fL (80.0-100.0); Mean Platelet Volume 6.8; Monocytes # (A) 0.3 k/uL (0-1.0); Monocytes % (A) 5 %; Neutrophils # (A) 4.4 k/uL (1.3-7.7); Neutrophils % (A) 59 %; Platelet Count 286 k/uL (150-450); RBC 4.54 m/uL (4.30-5.90); RDW 12.9 % (11.5-15.5); WBC 7.4 k/uL (3.8-10.6)
--- NOTE | 2021-04-04 21:26 | CT ---
EXAMINATION TYPE: CT brain wo con for TPA DATE OF EXAM: 04/04/2021 COMPARISON: 09/15/2020 HISTORY: Neuro deficits, LT side. Hx stroke. CT DLP: 1117.8 mGycm Automated exposure control for dose reduction was used. FINDINGS: There is no acute intracranial hemorrhage, mass effect, or midline shift identified. The ventricles and sulci are within normal limits in size. The globes are intact and the visualized sinuses are sheri ar. IMPRESSION: No acute intracranial hemorrhage, mass effect, or midline shift is seen.
[2021-04-04 21:36] VITALS: TEMP 97.3
--- NOTE | 2021-04-04 21:36 | CT ---
EXAM: CTA HEAD AND NECK INDICATION: Left sided neuro deficits. COMPARISON: None. TECHNIQUE: CTA of the head and neck were performed with multiplanar and MIP reformats generated and r eviewed. Stenosis evaluation is based on [place] Symptomatic Carotid Endarterectomy Trial (LUCAS CET). intravenous contrast was administered. FINDINGS: There is normal three-vessel branching of the aorta. There is no evidence of high-grade stenosis, dis section or aneurysm seen in the bilateral common carotid, cervical internal carotid and vertebral art eries. There is no evidence of high-grade stenosis, dissection or aneurysm in the intracranial internal figueroa tid arteries, anterior, middle and posterior cerebral arteries as well as in the imaged vertebral and basilar arteries. The communicating arteries and visualized dural sinuses are unremarkable. IMPRESSION: No significant abnormality of the CTA head/neck.
[2021-04-04 21:44] LABS: ALT 27 U/L (4-49); AST 26 U/L (17-59); African American GFR (CKD) >90 (>60 ml/min/1.73 sqM); Albumin 3.7 g/dL (3.5-5.0); Alkaline Phosphatase 84 U/L (38-126); Anion Gap 5 mmol/L; Blood Urea Nitrogen 13 mg/dL (9-20); Calcium 9.1 mg/dL (8.4-10.2); Carbon Dioxide 26 mmol/L (22-30); Chloride 106 mmol/L (98-107); Glucose 92 mg/dL (74-99); Non-African American GFR(CKD) >90 (>60 ml/min/1.73 sqM); Potassium 3.9 mmol/L (3.5-5.1); Sodium 137 mmol/L (137-145); Total Bilirubin <0.1 mg/dL (0.2-1.3); Total Protein 6.1 g/dL (6.3-8.2)
--- NOTE | 2021-04-04 21:44 | ED ---
General Adult HPI - General Chief complaint: Neuro Symptoms/Deficit Stated complaint: Stroke Time Seen by Provider: 04/04/21 20:50 Source: patient, family, EMS Mode of arrival: EMS Limitations: no limitations - History of Present Illness Initial comments: Patient presents to the ED by ambulance for evaluation. Patient states that he had a stroke 2 weeks ago, and he states that he has had mild left-sided weakness since then, but he states that about 30 minutes ago, he developed severe left- sided weakness, stating that he was completely unable to move his left arm or leg. Patient states that these symptoms developed while he was the passenger in a vehicle. Patient states that his weakness seems to be improving currently. Patient also reports having some chest pain since his symptoms began, and patient was given a dose of aspirin by EMS. Patient denies any other area of weakness. Patient denies trauma or injury, headache, focal numbness, visual changes, speech difficulty, dizziness, neck/back pain, extremity pain, dyspnea, cough or cold symptoms, pleuritic pain, palpitations, abdominal pain, nausea/vomiting/diarrhea, dysuria or urinary symptoms, leg or calf swelling or pain, or any other symptoms or complaints. Patient states that he is on warfarin anticoagulation therapy, and he states that he took a dose of his warfarin this morning. Code stroke was called on patient's arrival to the ED. - Related Data Home Medications Medication Instructions Recorded Confirmed Aspirin EC [Ecotrin Low Dose] 81 mg PO DAILY 09/14/20 04/04/21 Metoprolol Tartrate [Lopressor] 25 mg PO BID 09/14/20 04/04/21 Atorvastatin [Lipitor] 40 mg PO DAILY 09/22/20 04/04/21 Baclofen [Lioresal] 10 mg PO TID PRN 04/04/21 04/04/21 Nicotine 14Mg/24Hr Patch [Habitrol 1 patch TRANSDERM DAILY PRN 04/04/21 04/04/21 14Mg/24Hr Patch] Warfarin [Coumadin] 5 mg PO SUTUTHSA 04/04/21 04/04/21 Warfarin [Coumadin] 7.5 mg PO MOWEFR 04/04/21 04/04/21 Allergies Allergy/AdvReac Type Severity Reaction Status Date / Time nitroglycerin AdvReac Itching Verified 04/04/21 22:04 Review of Systems ROS Statement: Those systems with pertinent positive or pertinent negative responses have been documented in the HPI. ROS Other: All systems not noted in ROS Statement are negative. Past Medical History Past Medical History: Coronary Artery Disease (CAD), Chest Pain / Angina, Armando rologic Disorder Additional Past Medical History / Comment(s): Marfan's, "enlarged aorta" History of Any Multi-Drug Resistant Organisms: None Reported Past Surgical History: Appendectomy, Heart Catheterization Past Psychological History: No Psychological Hx Reported Smoking Status: Current every day smoker Past Alcohol Use History: None Reported Past Drug Use History: None Reported - Past Family History Father Family Medical History: CVA/TIA, Hypertension, Myocardial Infarction ([place]) Additional Family Medical History / Comment(s): states he D/T brain aneurysm Mother Family Medical History: Hypertension Additional Family Medical History / Comment(s): states cancer runs on her side of the family General Exam Limitations: no limitations General appearance: alert, in no apparent distress Head exam: Present: atraumatic, normocephalic Eye exam: Present: normal appearance, PERRL, EOMI, other (Left eye strabismus) ENT exam: Present: mucous membranes moist Neck exam: Present: other (Trachea is midline). Absent: tenderness, meningismus Respiratory exam: Present: normal lung sounds bilaterally. Absent: respiratory distress, wheezes, rales, rhonchi, stridor Cardiovascular Exam: Present: regular rate, normal rhythm, normal heart sounds, other (Normal radial pulses bilaterally) GI/Abdominal exam: Present: soft. Absent: distended, tenderness, guarding Extremities exam: Absent: tenderness, pedal edema, calf tenderness Back exam: Present: normal inspection. Absent: tenderness Neurological exam: Present: alert, oriented X3, other (5/5 strength in right upper and lower extremities; 4/5 strength in left upper and lower extremities; left lower facial droop; diminished sensation to light touch along the left upper and lower extremities; NIH stroke scale score = 4) Psychiatric exam: Present: normal affect, normal mood Skin exam: Present: warm, dry, intact, normal color Course Vital Signs 04/04/21 04/04/21 04/04/21 21:15 21:30 21:45 Temperature 97.3 F L Pulse Rate 65 60 57 L Respiratory 13 14 14 Rate Blood Pressure 140/90 136/95 122/85 O2 Sat by Pulse 100 98 98 Oximetry 04/04/21 04/04/21 22:00 22:15 Temperature Pulse Rate 56 L 70 Respiratory 16 16 Rate Blood Pressure 120/77 110/79 O2 Sat by Pulse 96 97 Oximetry - Reevaluation(s) Reevaluation #1: 04/04/21 21:14 Case, H&P and EMS management were discussed with Dr. Arango (neuro interventionalist). He is aware that the patient reports being on warfarin. He states that he will follow-up on the patient's imaging studies. He has no further recommendations at this time. 04/04/21 21:51 Dr. Arango has reviewed the patient's CT imaging studies, and he states that he does not see any significant abnormality. He recommends transferring the patient to [facility] for further evaluation and possible angiography. He does not recommend TPA administration. He has no further recommendation at this time. 04/04/21 22:01 Case, H&P, EMS management and my discussion with Dr. Arango as above were discus sed with Dr. Moura (ED physician at [facility]). He accepts ambulance transfer to their ED. He has no further recommendations at this time 04/04/21 22:43 Patient's neurological exam is unchanged to possibly slightly improved. Patient and are aware the patient's test results and my discussions as above, and they both agree with ambulance transfer to the [facility] ED at this time. EKG Findings - EKG Comments: EKG Findings:: Normal sinus rhythm, ventricular rate of 62 bpm, no ectopy, normal MT and QRS intervals, normal QT interval, rightward axis, incomplete right bundle branch block, no ST or T-wave abnormality Medical Decision Making - Medical Decision Making Patient's symptoms are suggestive of CVA versus TIA. Patient's symptoms have improved since onset. Patient's imaging studies are all negative. Patient's labs are fairly unremarkable. Patient is on warfarin with an INR of 2.5, and as such, the patient is not a TPA candidate. Dr. Arango (neuro interventionalist) was consulted from the ED, and he has recommended transfer to [facility]. Transfer to the [facility] ED was accepted by Dr. Moura (ED physician). Patient was given a dose aspirin by EMS. - Lab Data Result diagrams: 04/04/21 21:02 04/04/21 21:02 Lab Results 04/04/21 04/04/21 04/04/21 Range/Units 21:02 21: 21:02 WBC 7.4 (3.8-10.6) k/uL RBC 4.54 (4.30-5.90) m/uL Hgb 14.2 (13.0-17.5) gm/dL Hct 43.7 (39.0-53.0) % MCV 96.3 (80.0-100.0) fL MCH 31.4 (25.0-35.0) pg MCHC 32.6 (31.0-37.0) g/dL RDW 12.9 (11.5-15.5) % Plt Count 286 (150-450) k/uL MPV 6.8 Neutrophils % 59 % Lymphocytes % 31 % Monocytes % 5 % Eosinophils % 3 % Basophils % 1 % Neutrophils # 4.4 (1.3-7.7) k/uL Lymphocytes # 2.3 (1.0-4.8) k/uL Monocytes # 0.3 (0-1.0) k/uL Eosinophils # 0.2 (0-0.7) k/uL Basophils # 0.1 (0-0.2) k/uL PT 23.8 H (9.0-12.0) sec INR 2.5 H (<1.2) APTT 37.1 H (22.0-30.0) sec Sodium 137 (137-145) mmol/L Potassium 3.9 (3.5-5.1) mmol/L Chloride 106 (98-107) mmol/L Carbon Dioxide 26 (22-30) mmol/L Anion Gap 5 mmol/L BUN 13 (9-20) mg/dL Creatinine 0.75 (0.66-1.25) mg/dL Est GFR (CKD-EPI)AfAm >90 (>60 ml/min/1.73 sqM) Est GFR (CKD-EPI)NonAf >90 (>60 ml/min/1.73 sqM) Glucose 92 (74-99) mg/dL POC Glucose (mg/dL) (75-99) mg/dL POC Glu Instructor Tap Dancing ID Calcium 9.1 (8.4-10.2) mg/dL Total Bilirubin <0.1 L (0.2-1.3) mg/dL AST 26 (17-59) U/L ALT 27 (4-49) U/L Alkaline Phosphatase 84 (38-126) U/L Troponin I (0.000-0.034) ng/mL Total Protein 6.1 L (6.3-8.2) g/dL Albumin 3.7 (3.5-5.0) g/dL 04/04/21 04/04/21 Range/Units 21:02 21:04 WBC (3.8-10.6) k/uL RBC (4.30-5.90) m/uL Hgb (13.0-17.5) gm/dL Hct (39.0-53.0) % MCV (80.0-100.0) fL MCH (25.0-35.0) pg MCHC (31.0-37.0) g/dL RDW (11.5-15.5) % Plt Count (150-450) k/uL MPV Neutrophils % % Lymphocytes % % Monocytes % % Eosinophils % % Basophils % % Neutrophils # (1.3-7.7) k/uL Lymphocytes # (1.0-4.8) k/uL Monocytes # (0-1.0) k/uL Eosinophils # (0-0.7) k/uL Basophils # (0-0.2) k/uL PT (9.0-12.0) sec INR (<1.2) APTT (22.0-30.0) sec Sodium (137-145) mmol/L Potassium (3.5-5.1) mmol/L Chloride (98-107) mmol/L Carbon Dioxide (22-30) mmol/L Anion Gap mmol/L BUN (9-20) mg/dL Creatinine (0.66-1.25) mg/dL Est GFR (CKD-EPI)AfAm (>60 ml/min/1.73 sqM) Est GFR (CKD-EPI)NonAf (>60 ml/min/1.73 sqM) Glucose (74-99) mg/dL POC Glucose (mg/dL) 104 H (75-99) mg/dL POC Glu Instructor Tap Dancing ID Amaya, Erinn Calcium (8.4-10.2) mg/dL Total Bilirubin (0.2-1.3) mg/dL AST (17-59) U/L ALT (4-49) U/L Alkaline Phosphatase (38-126) U/L Troponin I <0.012 (0.000-0.034) ng/mL Total Protein (6.3-8.2) g/dL Albumin (3.5-5.0) g/dL - Radiology Data Radiology results: report reviewed (Chest x-ray: Normal chest, no change; noncontrast head CT is negative; CTA head and neck: No significant abnormality of the CTA head/neck) Critical Care Time Critical Care Time: Yes Total Critical Care Time: 60 Disposition Clinical Impression: Chest pain, Left hemiparesis, Facial droop Narrative: Suspected CVA versus TIA Disposition: OTHER INSTITUTION NOT DEFINED Condition: Stable Referrals: Caridad Todd MD [Primary Care Provider] - 1-2 days Time of Disposition: 22:49 - Out of Hospital Transfer - Req. Specs Out of Hospital Transfer - Requested Specifics: Other Emergency Center ([facility])
[2021-04-04 21:57] LABS: INR 2.5 (<1.2); Partial Thromboplastin Time 37.1 sec (22.0-30.0); Prothrombin Time 23.8 sec (9.0-12.0)
--- NOTE | 2021-04-04 22:08 | XR ---
EXAMINATION TYPE: XR chest 1V portable DATE OF EXAM: 04/04/2021 COMPARISON: 09/22/2020 HISTORY: Altered mental status TECHNIQUE: FINDINGS: There is no heart failure nor confluent pneumonic infiltrate. Costophrenic angles are clear . There are chest leads. Heart size is normal. IMPRESSION: Normal chest. No change.
[2021-04-04 22:31] VITALS: BP 110/79; PULSE 70; RESP 16
[2021-04-04] MEDS ORDERED: MORPHINE SULFATE 4 MG/ML SYRINGE IVP STA (23:04)
== END 2021-04-04 23:20 | disposition other institution (70) ==
LOC: EC 20:49
DX: I69.354 Hemiplegia and hemiparesis following cerebral infarction affecting left non-dominant side (principal); I25.10 Atherosclerotic heart disease of native coronary artery without angina pectoris; F17.200 Nicotine dependence, unspecified, uncomplicated; Z79.01 Long term (current) use of anticoagulants; Z79.82 Long term (current) use of aspirin; Z79.899 Other long term (current) drug therapy; Z82.49 Family history of ischemic heart disease and other diseases of the circulatory system
CPT/HCPCS: 99285 ×2; 96374 ×2; 36415; 93005; 80053; 84484; 85025; 85610; 85730; 71045; 70496; 70450; 70498; J2270; Q9967; 12011; 90471; 99284

== ENCOUNTER 2021-05-25 00:15 | Inpatient (IN) | payer MEDICARE, OTHER ==
[2021-05-25 00:34] LABS: Glucose,Whole Blood 87 mg/dL (75-99)
[2021-05-25] MEDS ORDERED: KETOROLAC 15 MG/ML 1 ML VIAL IVP STA (00:35)
--- NOTE | 2021-05-25 00:47 | CT ---
EXAMINATION TYPE: CT brain wo con for TPA DATE OF EXAM: 05/25/2021 COMPARISON: 04/04/2021 HISTORY: Code sstroke Weakness CT DLP: 1091 mGycm Automated exposure control for dose reduction was used. Ventricles and sulci appear normal. There is no mass effect nor midline shift. There is no sign of in tracranial hemorrhage. The calvarium is intact. Skull base is intact. IMPRESSION: Negative unenhanced head CT scan. No change.
[2021-05-25 00:51] LABS: Basophils % (A) 1 %; Eosinophils # (A) 0.2 k/uL (0-0.7); Eosinophils % (A) 4 %; HCT 40.5 % (39.0-53.0); HGB 14.3 gm/dL (13.0-17.5); Lymphocytes # (A) 2.6 k/uL (1.0-4.8); Lymphocytes % (A) 39 %; MCHC 35.2 g/dL (31.0-37.0); MCV 93.8 fL (80.0-100.0); Monocytes # (A) 0.5 k/uL (0-1.0); Monocytes % (A) 7 %; Neutrophils # (A) 3.1 k/uL (1.3-7.7); Neutrophils % (A) 47 %; Platelet Count 260 k/uL (150-450); RBC 4.32 m/uL (4.30-5.90); RDW 12.2 % (11.5-15.5); WBC 6.6 k/uL (3.8-10.6)
[2021-05-25 00:54] LABS: Partial Thromboplastin Time 27.6 sec (22.0-30.0); Prothrombin Time 10.9 sec (9.0-12.0)
--- NOTE | 2021-05-25 01:00 | CT ---
EXAMINATION TYPE: CT angio head neck DATE OF EXAM: 05/25/2021 COMPARISON: None HISTORY: Code stroke CT DLP: 495.1 mGycm Automated exposure control for dose reduction was used. CONTRAST: Performed with IV Contrast, patient injected with 65 mL of Isovue 370. Images obtained from the aortic arch to the vertex of the brain with IV contrast. There are 3-D post processed images. There is normal branching pattern of the great vessels on the aortic arch. There is arterial flow in both subclavian arteries. There is arterial flow in the common internal and external carotid arteries bilaterally. There is arterial flow in both vertebral arteries. There is wide patency of the carotid artery bifurcations. There is no evidence of carotid or vertebral artery aneurysm or dissection. There is arterial flow in the vertebrobasilar artery system. There is arterial flow in the anterior m iddle and posterior cerebral arteries. There is no mass effect. I see no evidence of intracranial art erial stenosis. There is normal enhancement of the venous sinuses. There is no aneurysm or neovascula rity. IMPRESSION: Normal CT angiogram of the neck. Normal CT angiogram of the brain.
--- NOTE | 2021-05-25 01:02 | XR ---
EXAMINATION TYPE: XR chest 1V DATE OF EXAM: 05/25/2021 COMPARISON: 04/04/2021 HISTORY: Altered mental status TECHNIQUE: Single view FINDINGS: Heart and mediastinum are normal. Lungs are clear. Diaphragm is normal. Bony thorax is inta ct. There are chest leads. IMPRESSION: Normal chest. No change.
[2021-05-25 01:03] LABS: ALT 33 U/L (4-49); AST 26 U/L (17-59); African American GFR (CKD) >90 (>60 ml/min/1.73 sqM); Albumin 3.3 g/dL (3.5-5.0); Alkaline Phosphatase 72 U/L (38-126); Anion Gap 6 mmol/L; Blood Urea Nitrogen 14 mg/dL (9-20); Carbon Dioxide 27 mmol/L (22-30); Chloride 105 mmol/L (98-107); Glucose 86 mg/dL (74-99); Non-African American GFR(CKD) >90 (>60 ml/min/1.73 sqM); Potassium 3.9 mmol/L (3.5-5.1); Sodium 138 mmol/L (137-145); Total Bilirubin <0.1 mg/dL (0.2-1.3); Total Protein 5.7 g/dL (6.3-8.2)
[2021-05-25] MEDS ORDERED: ACETAMINOPHEN TAB 325 MG TAB PO PRN (01:27)
[2021-05-25] MEDS ORDERED: ASPIRIN 325 MG TAB PO STA (01:27)
[2021-05-25] MEDS: SODIUM CHLORIDE 0.9% 1,000 ML IV SCH ×3 (01:57→22:49)
[2021-05-25] MEDS ORDERED: HYDROcodone/APAP 5-325MG 1 EACH TAB PO STA (02:32)
--- NOTE | 2021-05-25 07:34 | ED ---
Neuro HPI - General Chief Complaint: Neuro Symptoms/Deficit Stated Complaint: poss stroke Time Seen by Provider: 05/25/21 00:19 Source: patient, EMS Mode of arrival: EMS Limitations: physical limitation - History of Present Illness Is the patient presenting with stroke symptoms?: Yes Last Known Well Date: 05/24/21 Last Known Well Time: 22:00 Onset/Timin -: minutes(s) Initial Comments: This patient is a 40-year-old man with history of previous stroke, who presents with complaint that he was at home approximately 90 minutes ago when he started feeling lightheaded. He states that he passed out and then when he woke up and ambulance was there. Patient states that he is having a hard time moving his left side. He states that it feels numb. Patient denies headache. No change in vision, speech, swallowing. Location: left face, left arm, left leg History of same: Yes Place: home Severity: severe Quality: weak, numb Improves With: none Worsens With: none On Anticoagulants: Yes (eliquis) Context: sudden onset Associated Symptoms: chest pain Treatments Prior to Arrival: none - Related Data Home Medications: Home Medications Medication Instructions Recorded Confirmed Aspirin EC [Ecotrin Low Dose] 81 mg PO DAILY 09/14/20 05/25/21 Metoprolol Tartrate [Lopressor] 12.5 mg PO BID 09/14/20 05/25/21 Apixaban [Eliquis] 5 mg PO BID 05/25/21 05/25/21 Gabapentin [Neurontin] 100 mg PO TID 05/25/21 05/25/21 Previous Rx's Medication Instructions Recorded Acetaminophen Tab [Tylenol] 650 mg PO Q6HR PRN tab 05/26/21 Atorvastatin [Lipitor] 40 mg PO DAILY #30 tab 05/26/21 Famotidine [Pepcid] 20 mg PO BID 30 Days #60 tab 05/26/21 Ketorolac [Toradol] 10 mg PO Q6HR #12 tab 05/26/21 Nicotine 21Mg/24Hr Patch [Habitrol] 1 patch TRANSDERM DAILY #30 patch 05/26/21 Allergies/Adverse Reactions: Allergies Allergy/AdvReac Type Severity Reaction Status Date / Time nitroglycerin AdvReac Itching Verified 05/25/21 07:09 Review of Systems ROS Statement: Those systems with pertinent positive or pertinent negative responses have been documented in the HPI. ROS Other: All systems not noted in ROS Statement are negative. Constitutional: Denies: fever, chills Eyes: Denies: vision change ENT: Denies: hearing loss Respiratory: Denies: cough, dyspnea Cardiovascular: Reports: chest pain, syncope. Denies: palpitations, orthopnea, edema Gastrointestinal: Denies: abdominal pain, nausea, vomiting, diarrhea Genitourinary: Denies: dysuria, hematuria Musculoskeletal: Denies: back pain Skin: Denies: rash Neurological: Reports: weakness, numbness. Denies: headache, paresthesias, confusion General Exam Limitations: physical limitation General appearance: alert, in no apparent distress Head exam: Present: atraumatic, normocephalic Eye exam: Present: normal appearance. Absent: scleral icterus, conjunctival injection ENT exam: Present: normal oropharynx Neck exam: Present: normal inspection Respiratory exam: Present: normal lung sounds bilaterally. Absent: respiratory distress, wheezes, rales, rhonchi, stridor Cardiovascular Exam: Present: regular rate, normal rhythm, normal heart sounds. Absent: systolic murmur, diastolic murmur, rubs, gallop GI/Abdominal exam: Present: soft. Absent: distended, tenderness, guarding, rebound, rigid, mass Extremities exam: Present: normal inspection, normal capillary refill. Absent: pedal edema, calf tenderness Back exam: Present: normal inspection. Absent: CVA tenderness (R), CVA tenderness (L) Neurological exam: Present: alert, oriented X3, CN II-XII intact, motor sensory deficit Expanded Patient oriented to: Present: person, place, time Speech: Present: fluid speech Cranial nerves: EOM's Intact: Normal, Gag Reflex: Normal, Tongue Deviation: Normal, Facial Sensation: Normal Sensory exam: Upper Extremity Light Touch: Normal, Lower Extremity Light Touch: Normal Motor strength exam: RUE: 5, LUE: 4, RLE: 5, LLE: 4 Eye Response: (4) open spontaneously Motor Response: (6) obeys commands Verbal Response: (5) oriented Skin exam: Present: warm, dry, intact, normal color. Absent: rash Stroke MDM - Lab Data Result diagrams: 05/25/21 00:35 05/25/21 00:35 Lab Results 05/25/21 05/25/21 05/25/21 Range/Units 00:32 00:35 00:35 WBC 6.6 (3.8-10.6) k/uL RBC 4.32 (4.30-5.90) m/uL Hgb 14.3 (13.0-17.5) gm/dL Hct 40.5 (39.0-53.0) % MCV 93.8 (80.0-100.0) fL MCH 33.0 (25.0-35.0) pg MCHC 35.2 (31.0-37.0) g/dL RDW 12.2 (11.5-15.5) % Plt Count 260 (150-450) k/uL MPV 7.0 Neutrophils % 47 % Lymphocytes % 39 % Monocytes % 7 % Eosinophils % 4 % Basophils % 1 % Neutrophils # 3.1 (1.3-7.7) k/uL Lymphocytes # 2.6 (1.0-4.8) k/uL Monocytes # 0.5 (0-1.0) k/uL Eosinophils # 0.2 (0-0.7) k/uL Basophils # 0.0 (0-0.2) k/uL PT 10.9 (9.0-12.0) sec INR 1.0 (<1.2) APTT 27.6 (22.0-30.0) sec Sodium (137-145) mmol/L Potassium (3.5-5.1) mmol/L Chloride (98-107) mmol/L Carbon Dioxide (22-30) mmol/L Anion Gap mmol/L BUN (9-20) mg/dL Creatinine (0.66-1.25) mg/dL Est GFR (CKD-EPI)AfAm (>60 ml/min/1.73 sqM) Est GFR (CKD-EPI)NonAf (>60 ml/min/1.73 sqM) Glucose (74-99) mg/dL POC Glucose (mg/dL) 87 (75-99) mg/dL POC Glu Masonry Instructor [address] Glu mg/dL Hemoglobin A1c (4.0-6.0) % Calcium (8.4-10.2) mg/dL Total Bilirubin (0.2-1.3) mg/dL AST (17-59) U/L ALT (4-49) U/L Alkaline Phosphatase (38-126) U/L Troponin I (0.000-0.034) ng/mL Total Protein (6.3-8.2) g/dL Albumin (3.5-5.0) g/dL 05/25/21 05/25/21 05/25/21 Range/Units 00:35 00:35 00:35 WBC (3.8-10.6) k/uL RBC (4.30-5.90) m/uL Hgb (13.0-17.5) gm/dL Hct (39.0-53.0) % MCV (80.0-100.0) fL MCH (25.0-35.0) pg MCHC (31.0-37.0) g/dL RDW (11.5-15.5) % Plt Count (150-450) k/uL MPV Neutrophils % % Lymphocytes % % Monocytes % % Eosinophils % % Basophils % % Neutrophils # (1.3-7.7) k/uL Lymphocytes # (1.0-4.8) k/uL Monocytes # (0-1.0) k/uL Eosinophils # (0-0.7) k/uL Basophils # (0-0.2) k/uL PT (9.0-12.0) sec INR (<1.2) APTT (22.0-30.0) sec Sodium 138 (137-145) mmol/L Potassium 3.9 (3.5-5.1) mmol/L Chloride 105 (98-107) mmol/L Carbon Dioxide 27 (22-30) mmol/L Anion Gap 6 mmol/L BUN 14 (9-20) mg/dL Creatinine 0.94 (0.66-1.25) mg/dL Est GFR (CKD-EPI)AfAm >90 (>60 ml/min/1.73 sqM) Est GFR (CKD-EPI)NonAf >90 (>60 ml/min/1.73 sqM) Glucose 86 (74-99) mg/dL POC Glucose (mg/dL) (75-99) mg/dL POC Glu Masonry Instructor ID Estimated Ave Glu mg/dL 108 Hemoglobin A1c 5.4 (4.0-6.0) % Calcium 9.0 (8.4-10.2) mg/dL Total Bilirubin <0.1 L (0.2-1.3) mg/dL AST 26 (17-59) U/L ALT 33 (4-49) U/L Alkaline Phosphatase 72 (38-126) U/L Troponin I <0.012 (0.000-0.034) ng/mL Total Protein 5.7 L (6.3-8.2) g/dL Albumin 3.3 L (3.5-5.0) g/dL - Medical Decision Making This patient is a 40-year-old man presenting with acute onset of left-sided weakness. The patient is worked up as code stroke. He went directly to compute d tomography scan. I discussed the case with Dr. Ashford, and the patient is not eligible for TPA, given that he is taking L Aquinas. The patient did have marked improvement and was moving his left side after returning from computed tomography scan. Past Medical History Past Medical History: Coronary Artery Disease (CAD), Chest Pain / Angina, CVA/TIA, Neurologic Disorder Additional Past Medical History / Comment(s): Marfan's, "enlarged aorta" History of Any Multi-Drug Resistant Organisms: None Reported Past Surgical History: Appendectomy, Heart Catheterization Past Psychological History: No Psychological Hx Reported Smoking Status: Current every day smoker Past Alcohol Use History: None Reported Past Drug Use History: None Reported - Past Family History Father Family Medical History: CVA/TIA, Hypertension, Myocardial Infarction ([place]) Additional Family Medical History / Comment(s): states he D/T brain aneurysm Mother Family Medical History: Hypertension Additional Family Medical History / Comment(s): states cancer runs on her side of the family Course Vital Signs 05/25/21 05/25/21 05/25/21 00:30 00:35 00:50 Temperature 99.7 F H 99.1 F 99.1 F Pulse Rate 56 L 59 L 69 Respiratory 16 16 16 Rate Blood Pressure 139/84 137/86 122/81 O2 Sat by Pulse 99 98 99 Oximetry 05/25/21 05/25/21 05/25/21 01:05 01:20 01:35 Temperature 99.1 F 98.9 F 98.9 F Pulse Rate 57 L 53 L 53 L Respiratory 16 16 16 Rate Blood Pressure 129/87 123/77 125/75 O2 Sat by Pulse 97 98 98 Oximetry 05/25/21 05/25/21 05/25/21 01:50 02:05 06:29 Temperature 98.9 F 98.9 F 97.8 F Pulse Rate 54 L 54 L 63 Respiratory 16 16 18 Rate Blood Pressure 118/81 119/76 104/69 O2 Sat by Pulse 96 98 97 Oximetry 05/25/21 05/25/21 05/25/21 07:46 10:41 11:26 Temperature 97.8 F 97.7 F Pulse Rate 50 L 52 L 49 L Respiratory 18 18 18 Rate Blood Pressure 104/69 114/77 113/74 O2 Sat by Pulse 95 95 96 Oximetry Critical Care Time Critical Care Time: Yes (30 minutes) Disposition Clinical Impression: CVA (cerebral vascular accident) Disposition: ADMITTED IP TO THIS [facility] Condition: Stable Is patient prescribed a controlled substance at d/c from ED?: No
[2021-05-25] MEDS: ATORVASTATIN 40 MG TAB PO SCH (07:52)
[2021-05-25] MEDS: CLOPIDOGREL 75 MG TAB PO SCH (07:53)
[2021-05-25] MEDS ORDERED: FAMOTIDINE 20 MG/2 ML VIAL IV SCH (09:00)
[2021-05-25] MEDS ORDERED: KETOROLAC 15 MG/ML 1 ML VIAL IVP PRN (10:54)
[2021-05-25] MEDS ORDERED: HYDROcodone/APAP 7.5-325MG 1 EACH TAB PO PRN (11:12)
[2021-05-25] MEDS: NICOTINE 21MG/24HR PATCH TRANSDERM SCH (11:42)
[2021-05-25] MEDS: PANTOPRAZOLE 40 MG TABLET PO SCH ×2 (11:42→18:03)
--- NOTE | 2021-05-25 11:50 | P.HPIM ---
History of Present Illness Patient 40-year-old male came in with complaints of dizziness followed by possible syncope without any loss of bowel or bladder continence seizure-like activity no tongue biting, symptoms started last night patient woke up and found to have weakness in the left side of the face left arm and left leg along with tingling numbness. Patient denied any headache. Patient denied any nausea vomiting. Patient does have history of atrial fibrillation on Eliquis didn't miss any of the dose of Eliquis patient is also on aspirin 81 mg at home. Patient did have history of psoriasis fraction the past. Patient can use to smoke one pack of cigarettes per day. Patient still has weakness with 4/5 strength in left upper extremity left lower extremity may be a mild facial droop on the left side. Patient had a CT of the head and CT of the head both upper negative. Echocardiogram will be obtained. Cardiology and neurology will be consulted patient was also comparing of chest pain retrosternal burning radiating to the left arm. I do not have a an EKG available in the system EKG will be ordered and patient troponins were negative so far. REVIEW OF SYSTEMS: CONSTITUTIONAL: No fever, no malaise, no fatigue. HEENT: No recent visual problems or hearing problems. Denied any sore throat. CARDIOVASCULAR: No orthopnea, PND, no palpitations. PULMONARY: No shortness of breath, no cough, no hemoptysis. GASTROINTESTINAL: No diarrhea, no nausea, no vomiting, no abdominal pain. NEUROLOGICAL: No headaches, no weakness, no numbness. HEMATOLOGICAL: Denies any bleeding or petechiae. GENITOURINARY: Denies any burning micturition, frequency, or urgency. MUSCULOSKELETAL/RHEUMATOLOGICAL: Denies any joint pain, swelling, or any muscle pain. ENDOCRINE: Denies any polyuria or polydipsia. The rest of the 14-point review of systems is negative. PHYSICAL EXAMINATION: GENERAL: The patient is alert and oriented x3, not in any acute distress. Well developed, well nourished. HEENT: Pupils are round and equally reacting to light. EOMI. No scleral icterus. No conjunctival pallor. Normocephalic, atraumatic. No pharyngeal erythema. No thyromegaly. CARDIOVASCULAR: S1 and S2 present. No murmurs, rubs, or gallops. PULMONARY: Chest is clear to auscultation, no wheezing or crackles. ABDOMEN: Soft, nontender, nondistended, normoactive bowel sounds. No palpable organomegaly. MUSCULOSKELETAL: No joint swelling or deformity. EXTREMITIES: No cyanosis, clubbing, or pedal edema. NEUROLOGICAL: Left-sided weakness at 4/5 strength in left upper external and left lower extremity sensory exam was not done. SKIN: No rashes. Assessment and plan --Possible syncope patient will be monitored under alarm security or surveillance monitor echo card iac exam will be obtained he severity of pain is well-controlled consulted -Possible cerebral vascular accident involving left side of the body patient says his complaint with his a medications and diet neurology was consulted MRI is being obtained. Patient is on aspirin and Eliquis at home patient will be changed to Eliquis and Plavix instead. Aspirin will risk discontinued -Chest pain atypical rule out acute coronary syndromes cardiology will evaluate the patient patient will be started on Protonix patient appears to be gastroesophageal reflux disease -Paroxysmal atrial fibrillation presently rate controlled, resume metoprolol will obtain an EKG as mentioned above -Coronary artery disease -Nicotine use: Counseling was provided DVT prophylaxis: On Eliquis Past Medical History Past Medical History: Coronary Artery Disease (CAD), Chest Pain / Angina, CVA/TIA, Neurologic Disorder Additional Past Medical History / Comment(s): Marfan's, "enlarged aorta" History of Any Multi-Drug Resistant Organisms: None Reported Past Surgical History: Appendectomy, Heart Catheterization Past Psychological History: No Psychological Hx Reported Smoking Status: Current every day smoker Past Alcohol Use History: None Reported Past Drug Use History: None Reported - Past Family History Father Family Medical History: CVA/TIA, Hypertension, Myocardial Infarction ([place]) Additional Family Medical History / Comment(s): states he D/T brain aneurysm Mother Family Medical History: Hypertension Additional Family Medical History / Comment(s): states cancer runs on her side of the family Medications and Allergies Home Medications Medication Instructions Recorded Confirmed Type Aspirin EC [Ecotrin Low Dose] 81 mg PO DAILY 09/14/20 05/25/21 History Metoprolol Tartrate [Lopressor] 12.5 mg PO BID 09/14/20 05/25/21 History Apixaban [Eliquis] 5 mg PO BID 05/25/21 05/25/21 History Gabapentin [Neurontin] 100 mg PO TID 05/25/21 05/25/21 History Allergies Allergy/AdvReac Type Severity Reaction Status Date / Time nitroglycerin AdvReac Itching Verified 05/25/21 07:09 Physical Exam Vitals: Vital Signs Temp Pulse Resp BP Pulse Ox 05/25/21 11:26 97.7 F 49 L 18 113/74 96 05/25/21 10:41 52 L 18 114/77 95 05/25/21 07:46 97.8 F 50 L 18 104/69 95 05/25/21 06:29 97.8 F 63 18 104/69 97 05/25/21 02:05 98.9 F 54 L 16 119/76 98 05/25/21 01:50 98.9 F 54 L 16 118/81 96 05/25/21 01:35 98.9 F 53 L 16 125/75 98 05/25/21 01:20 98.9 F 53 L 16 123/77 98 05/25/21 01:05 99.1 F 57 L 16 129/87 97 05/25/21 00:50 99.1 F 69 16 122/81 99 05/25/21 00:35 99.1 F 59 L 16 137/86 98 05/25/21 00:30 99.7 F H 56 L 16 139/84 99 Intake and Output 05/24/21 05/25/21 05/25/21 22:59 06:59 14:59 Other: Weight 74.843 kg Results CBC & Chem 7: 05/25/21 00:35 05/25/21 00:35 Labs: Abnormal Lab Results - Last 24 Hours (Table) 05/25/21 Range/Units 00:35 Total Bilirubin <0.1 L (0.2-1.3) mg/dL Total Protein 5.7 L (6.3-8.2) g/dL Albumin 3.3 L (3.5-5.0) g/dL
[2021-05-25] MEDS: APIXABAN 5 MG TAB PO SCH ×2 (12:41→20:55)
--- NOTE | 2021-05-25 13:08 | P.CNNES ---
History of Present Illness Consult date: 05/25/21 Requesting physician: Cruzito Cruz Reason for Consult: Acute ischemic stroke versus TIA History of Present Illness: Patient is a 40-year-old male with history of Marfan syndrome with enlarged aorta, came to the hospital by ambulance shortly after midnight at 12:15 AM today. Patient states that he was walking across on the floor, when he got dizzy, sat down but did not fall. However the next thing he remembers is EMS people around him. Since then, he notices weakness of his left arm and leg. Denies any slurred speech. Denies any loss of control of urine, tongue bite. No history of seizures. 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 Vital signs on arrival blood pressure 139/84, pulse rate 56, temperature 99.7. Blood test shows normal CBC, PT/PTT, Chem-20. Patient's B12 was 980, RBC folate 461 on 09/15/2020. TSH normal. Computed tomography scan of the head is normal. CTA of head and neck normal. Chest x-ray also normal. Patient had a 2-D echo on 09/15/2020, which revealed normal left ventricular size, normal left ventricular wall thickness. EF is between 50-55%. Right ventricle is mildly enlarged. Intra-atrial closure device in place without evidence of shunt. Trace MR. Previous EKGs has showed normal sinus rhythm. Patient takes metoprolol 12.5 mg twice a day, aspirin 81 mg, Eliquis 5 mg twice a day and gabapentin 100 mg 3 times a day. Patient states she has history of atrial fibrillation for which he is on anticoagulation. Patient was last year evaluated by Dr. Hung Brady for bilateral fascial in left- sided paresthesias. At that time MRI of the brain and cervical spine were normal. He was recommended to continue aspirin. Patient has hypertension denies diabetes. He has smoked 1 pack per day for 20 years. Denies any alcohol or drugs. 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 He can only see shadows. Patient states he uses cane to walk about 20% of time since his last stroke a month ago. Review of Systems Denies headache. Complains of visual problem. Denies any double vision, hoarseness, sore throat, dysphagia. Denies any chest pain, abdominal pain nausea vomiting diarrhea. Denies any fever or chills. No hematemesis or melena. No dysuria, hematuria. Denies anxiety depression. He states he has 6 children from age 14-2 years. He denies any excessive stressors. Complains of weakness of the left side. Denies any history of seizures. No tongue bite or loss of control of urine with this syncopal spell. Past Medical History Past Medical History: Coronary Artery Disease (CAD), Chest Pain / Angina, CVA/TIA, Neurologic Disorder Additional Past Medical History / Comment(s): Marfan's, "enlarged aorta" History of Any Multi-Drug Resistant Organisms: None Reported Past Surgical History: Appendectomy, Heart Catheterization Past Psychological History: No Psychological Hx Reported Smoking Status: Current every day smoker Past Alcohol Use History: None Reported Past Drug Use History: None Reported - Past Family History Father Family Medical History: CVA/TIA, Hypertension, Myocardial Infarction ([place]) Additional Family Medical History / Comment(s): states he D/T brain aneurysm Mother Family Medical History: Hypertension Additional Family Medical History / Comment(s): states cancer runs on her side of the family Medications and Allergies Home Medications Medication Instructions Recorded Confirmed Type Aspirin EC [Ecotrin Low Dose] 81 mg PO DAILY 09/14/20 05/25/21 History Metoprolol Tartrate [Lopressor] 12.5 mg PO BID 09/14/20 05/25/21 History Apixaban [Eliquis] 5 mg PO BID 05/25/21 05/25/21 History Gabapentin [Neurontin] 100 mg PO TID 05/25/21 05/25/21 History Allergies Allergy/AdvReac Type Severity Reaction Status Date / Time nitroglycerin AdvReac Itching Verified 05/25/21 07:09 Physical Examination - Vital Signs Vital Signs: Vital Signs Temp Pulse Resp BP Pulse Ox 05/25/21 07:46 97.8 F 50 L 18 104/69 95 05/25/21 06:29 97.8 F 63 18 104/69 97 05/25/21 02:05 98.9 F 54 L 16 119/76 98 05/25/21 01:50 98.9 F 54 L 16 118/81 96 05/25/21 01:35 98.9 F 53 L 16 125/75 98 05/25/21 01:20 98.9 F 53 L 16 123/77 98 05/25/21 01:05 99.1 F 57 L 16 129/87 97 05/25/21 00:50 99.1 F 69 16 122/81 99 05/25/21 00:35 99.1 F 59 L 16 137/86 98 05/25/21 00:30 99.7 F H 56 L 16 139/84 99 Intake and Output 05/24/21 05/25/21 05/25/21 22:59 06:59 14:59 Other: Weight 74.843 kg Patient is a middle aged male, in no acute distress. Patient is alert and awake fairly well oriented. Patient is alert awake oriented to time place and person. Speech and language functions are normal. Attention, concentration and fund of knowledge is adequate. On cranial examination, pupils are round and reacting to light, possible left APD from previous visual field problem. Patient states he is blind in the left eye, only see shadows. Visual thomas reveals some neglect on the left side of the visual field, homonymous. extraocular muscles are intact with no nystagmus. On active testing, patient has obvious left facial droop, but when he smiles, appears very symmetric. His tongue protrudes to the midline. Palatal elevation and sensation normal, hearing and shoulder shrug normal, facial sensation "slightly different" as compared to the right. On muscle strength testing, patient has some inconsistent response. He states he cannot move his left arm and left leg, but later was noted to move it fairly well (without any slowing). Patient's strength is normal in the right side. On the left, his biceps, triceps are 5-, deltoid 4, puttying and calking supervisor 4+5-. Patient has left leg weakness diffusely about 3+ to 4. Deep tendon reflexes are very symmetric, 2 in the upper limbs, 1 in the lower limbs plantars downgoing bilaterally. Sensory to touch patient feeding slightly less intense on the left side (face, arm and leg) although was feeling on both sides.. Cerebellar function showed no ataxia for [id number] testing on either side. Tone and bulk of muscles normal. Gait not checked. On general examination, there is no carotid bruit or murmur, S1-S2 audible. Abd omen is soft nontender. Chest is clear. Peripheral pulses are present. No edema. Results - Laboratory Findings CBC and BMP: 05/25/21 00:35 05/25/21 00:35 Abnormal Lab Findings: Abnormal Labs 05/25/21 00:35 Total Bilirubin <0.1 L Total Protein 5.7 L Albumin 3.3 L Assessment and Plan Assessment: * Possible CVA manifesting with left hemiparesis, left visual field deficits and left hemisensory deficit. Patient has some inconsistencies in examination. Functional disorder also in the differential. * History of atrial fibrillation on long-term anticoagulation with Eliquis. * Hypertension * Previous history of possible CVA. * Tobacco use Plan: * MRI of brain evaluate for an acute stroke. * CTA of head and neck are normal. * If MRI confirms CVA, then would recommend AR to evaluate for embolic source. * Continue Eliquis and aspirin for now. * Recommend complete tobacco cessation.
--- NOTE | 2021-05-25 13:37 | ECHOF ---
Referral Reason:Syncope MEASUREMENTS -------- HEIGHT: 182.9 cm WEIGHT: 74.8 kg BP: 114/77 IVSd: 0.9 cm (0.6 - 1.1) LVIDd: 5.3 cm (3.9 - 5.3) LVPWd: 0.8 cm (0.6 - 1.1) EDV(Teich): 133 ml IVSs: 1.4 cm LVIDs: 3.6 cm LVPWs: 1.6 cm %IVS Thck: 57 % ESV(Teich): 54 ml EF(Teich): 60 % %FS: 32 % SV(Teich): 79 ml LA Diam: 3.1 cm (2.7 - 3.8) RVIDd: 3.1 cm (< 3.3) LALs A4C: 5.0 cm LAAs A4C: 15.7 cm LAESV A-L A4C: 41 ml LAESV MOD A4C: 33 ml LALs A2C: 6.4 cm LAAs A2C: 21.8 cm LAESV A-L A2C: 63 ml LAESV MOD A2C: 58 ml LAESV(A-L): 58 ml LAESV Index (A-L): 29.35 ml/m HR_2Ch_Q: 46 bpm HR_4Ch_Q: 49 bpm LVVED_2Ch_Q: 101 ml LVVED_4Ch_Q: 115 ml LVVED_BiP_Q: 107 ml LVVES_2Ch_Q: 51 ml LVVES_4Ch_Q: 58 ml LVVES_BiP_Q: 54 ml LVEF_2Ch_Q: 50 % LVEF_4Ch_Q: 49 % LVEF_BiP_Q: 49 % LVSV_2Ch_Q: 50 ml LVSV_4Ch_Q: 57 ml LVSV_BiP_Q: 53 ml LVCO_2Ch_Q: 2.3 l/min LVCO_4Ch_Q: 2.8 l/min LVCO_BiP_Q: 2.4 l/min LVLs_2Ch_Q: 7.2 cm LVLs_4Ch_Q: 7.1 cm LVLd_2Ch_Q: 8.7 cm LVLd_4Ch_Q: 8.8 cm Ao Diam: 3.9 cm (2.0 - 3.7) AV Cusp: 2.6 cm (1.5 - 2.6) EPSS: 0.5 cm MV E Max: 0.97 m/s MV DecT: 323 ms MV Dec [place]: 3.0 m/s MV A Max: 0.45 m/s MV E/A Ratio: 2.17 MV PHT: 94 ms AV Vmax: 1.02 m/s AV maxP.13 mmHg MV EF SLOPE: 200.22 mm/s (70 - 150) MV EXCURSION: 23.99 mm (> 18.000) FINDINGS -------- Resting bradycardia (HR<60bpm). This was a technically good study. The left ventricular size is normal. Left ventricular wall thickness is normal. Overall left vent ricular systolic function is mildly impaired with, an EF between 45 - 50 %. Basal posterior LV wall motion is hypokinetic. Mid posterior LV wall motion is hypokinetic. The right ventricle is normal in size. LA is midly dilated 29-33ml/m2. The right atrium is normal in size. Contrast study was performed with 1 iv injection of 8 ccs of agitated normal saline at rest. Negative saline bubble study. No PFO noted The aortic valve is trileaflet, and appears structurally normal. No aortic stenosis or regurgitation. The mitral valve is normal. Trace tricuspid regurgitation present. Unable to estimate RVSP due to inadequate TR jet spectral do ppler profile. Trace/mild (physiologic) pulmonic regurgitation. The aortic root is dilated measuring 3.9cm. Normal inferior vena cava with normal inspiratory collapse consistent with estimated right atrial pre ssure of 5 mmHg. There is no pericardial effusion. CONCLUSIONS -------- 1. The left ventricular size is normal. 2. Left ventricular wall thickness is normal. 3. Overall left ventricular systolic function is mildly impaired with, an EF between 45 - 50 %. 4. Basal posterior LV wall motion is hypokinetic. 5. Mid posterior LV wall motion is hypokinetic. 6. LA is midly dilated 29-33ml/m2. 7. Contrast study was performed with 1 iv injection of 8 ccs of agitated normal saline at rest. 8. Negative saline bubble study. No PFO noted 9. The aortic valve is trileaflet, and appears structurally normal. No aortic stenosis or regurgitati on. 10. Trace tricuspid regurgitation present. 11. Trace/mild (physiologic) pulmonic regurgitation. 12. The aortic root is dilated measuring 3.9cm. 13. There is no pericardial effusion. NEWSPAPER EDITOR MANAGING: Vidya Marie RDCS
[2021-05-25] MEDS: GABAPENTIN 100 MG CAP PO SCH ×2 (16:11→20:55)
--- NOTE | 2021-05-25 16:41 | MR ---
MR brain without contrast HISTORY: Cerebral vascular accident Multiplanar multisequence imaging through the brain, correlation to CT brain 05/25/2021 There is no restricted diffusion. There is no hemorrhage or hydrocephalus. Brain signal is maintained . There are normal vascular flow voids. The orbits show symmetric appearance. The corpus callosum, pi tuitary, cervical medullary junction, cerebellopontine angles are normal. Some inflammatory change pr esent in the ethmoid air cells. IMPRESSION: Normal brain MRI. Mild sinus disease.
[2021-05-25] MEDS: KETOROLAC 15 MG/ML 1 ML VIAL IVP PRN (18:20)
[2021-05-25 20:40] LABS: Hemoglobin A1C 5.4 % (4.0-6.0)
[2021-05-25] MEDS: METOPROLOL TARTRATE 12.5 MG TAB PO SCH (20:54)
[2021-05-25] MEDS: FAMOTIDINE 20 MG TAB PO SCH (20:55)
[2021-05-26] MEDS: KETOROLAC 15 MG/ML 1 ML VIAL IVP PRN ×2 (00:38→06:52)
[2021-05-26 00:45] VITALS: TEMP 98
[2021-05-26 04:51] VITALS: PULSE 69
[2021-05-26] MEDS: PANTOPRAZOLE 40 MG TABLET PO SCH (06:52)
[2021-05-26] MEDS: SODIUM CHLORIDE 0.9% 1,000 ML IV SCH (06:52)
[2021-05-26] MEDS ORDERED: ASPIRIN 325 MG TAB PO SCH (09:00)
[2021-05-26] MEDS: CLOPIDOGREL 75 MG TAB PO SCH (09:33)
[2021-05-26] MEDS: ATORVASTATIN 40 MG TAB PO SCH (09:33)
[2021-05-26] MEDS: GABAPENTIN 100 MG CAP PO SCH (09:33)
[2021-05-26] MEDS: FAMOTIDINE 20 MG TAB PO SCH (09:33)
[2021-05-26] MEDS: METOPROLOL TARTRATE 12.5 MG TAB PO SCH (09:33)
[2021-05-26] MEDS: APIXABAN 5 MG TAB PO SCH (09:33)
[2021-05-26] MEDS: NICOTINE 21MG/24HR PATCH TRANSDERM SCH (09:33)
--- NOTE | 2021-05-26 10:13 | P.CRDCN ---
History of Present Illness Consult date: 05/26/21 History of present illness: HISTORY OF PRESENT ILLNESS: This is a 40-year-old male with a past medical history significant for atrial septal defect repaired 8 years ago, atrial fibrillation, Marfan syndrome with an enlarged aorta, and nicotine dependence. Patient follows with a environmental permitting specialist in [place]. We have been asked to see the patient in consultation for chest pain. Patient examined at the bedside. Patient presented to the hospital after having a syncopal episode at home. Patient states he was walking in his house and felt dizzy and the next thing he knew he woke up on the floor with EMS around him. He reports after that he noticed left upper and lower extremity weakness. He continues to report weakness on the left side. Patient reports having intermittent chest pain over the past few weeks. He states the pain is a burning sensation and radiates to his left jaw. Patient states the pain goes away on its own. He denies shortness of breath or nausea with these episodes. Patient reports a family history of coronary artery disease and states his dad had a IA before the age of 60. Patient is a current smoker and smokes 1 PPD. Patient believes his last stress test was over a year ago in [place]. EKG reveals sinus mechanism with no signs of acute ischemia Chest xray negative for acute process MRI brain: negative for acute process CT of the brain: Negative for acute process Laboratory data: WBC 6.6. Hemoglobin 14.3. Platelet count 260. Sodium 138. Potassium 3.9. BUN 14. Creatinine 0.94. Troponin negative 3. Current home cardiac medications include Eliquis 5mg BID, aspirin 81 mg daily, and metoprolol tartrate 12.5 mg twice a day Most recent echocardiogram obtained reveals EF 45-50% with posterior LV wall hypokinesis. REVIEW OF SYSTEMS: At the time of my exam: CONSTITUTIONAL: Denies fever or chills. HEENT: Denies blurred vision, vision changes, or eye pain. Denies hemoptysis CARDIOVASCULAR: Denies chest pain. Denies orthopnea. Denies PND. Denies palpitations RESPIRATORY: Denies shortness of breath. GASTROINTESTINAL: Denies abdominal pain. Denies nausea or vomiting. HEMATOLOGIC: Denies bleeding disorders. GENITOURINARY: Denies any blood in urine. SKIN: Denies pruitis. Denies rash. PHYSICAL EXAM: VITAL SIGNS: Reviewed. GENERAL: Well-developed in no acute distress. HEENT: Head is normocephalic. Pupils are equal, round. Sclerae anicteric. Mucous membranes of the mouth are moist. Neck supple. No JVD or thyromegaly LUNGS: Respirations even and unlabored. Lungs essentially clear to auscultation bilaterally. HEART: Regular rate and rhythm. S1 and S2 heard. ABDOMEN: Soft. Nondistended. Nontender. EXTREMITIES: Left sided weakness No clubbing or cyanosis. Peripheral pulses intact. No lower extremity edema NEUROLOGIC: Awake and alert. Oriented x 3. ASSESSMENT: Syncope Left sided weakness, r/o CVA Paroxysmal atrial fibrillation, on anticoagulation with Eliquis Chest pain, troponins negative 3 Marfan syndrome with enlarged aorta per patient History of atrial septal defect, repaired 8 years ago Nicotine dependence Family history of premature coronary artery disease PLAN: Continue neurology workup Continue anticoagulation with Eliquis Continue Plavix, metoprolol, and Lipitor Obtain records from patient's environmental permitting specialist in [place] Patient will require a stress test on an outpatient basis Further recommendations pending patient's course Nurse practitioner note has been reviewed by physician. Signing provider agrees with the documented findings, assessment, and plan of care. Past Medical History Past Medical History: Coronary Artery Disease (CAD), Chest Pain / Angina, CVA/TIA, Neurologic Disorder Additional Past Medical History / Comment(s): Marfan's, "enlarged aorta" History of Any Multi-Drug Resistant Organisms: None Reported Past Surgical History: Appendectomy, Heart Catheterization Past Psychological History: No Psychological Hx Reported Smoking Status: Current every day smoker Past Alcohol Use History: None Reported Past Drug Use History: None Reported - Past Family History Father Family Medical History: CVA/TIA, Hypertension, Myocardial Infarction ([place]) Additional Family Medical History / Comment(s): states he D/T brain aneurysm Mother Family Medical History: Hypertension Additional Family Medical History / Comment(s): states cancer runs on her side of the family Medications and Allergies Home Medications Medication Instructions Recorded Confirmed Type Aspirin EC [Ecotrin Low Dose] 81 mg PO DAILY 09/14/20 05/25/21 History Metoprolol Tartrate [Lopressor] 12.5 mg PO BID 09/14/20 05/25/21 History Apixaban [Eliquis] 5 mg PO BID 05/25/21 05/25/21 History Gabapentin [Neurontin] 100 mg PO TID 05/25/21 05/25/21 History Allergies Allergy/AdvReac Type Severity Reaction Status Date / Time nitroglycerin AdvReac Itching Verified 05/25/21 07:09 Physical Exam Vitals: Vital Signs Temp Pulse Pulse Resp BP BP Pulse Ox 05/26/21 04:00 98.0 F 69 16 121/67 97 05/26/21 00:00 98.0 F 52 L 16 127/80 100 05/25/21 20:00 98.2 F 71 16 112/72 97 05/25/21 16:00 63 16 120/80 05/25/21 14:00 49 L 16 05/25/21 12:37 49 L 16 119/62 97 05/25/21 11:26 97.7 F 49 L 18 113/74 96 05/25/21 10:41 52 L 18 114/77 95 Intake and Output 05/25/21 05/26/21 05/26/21 22:59 06:59 14:59 Intake Total 250 Output Total 400 425 Balance -150 -425 Intake: IV 10 Invasive Line 2 10 Oral 240 Output: Urine 400 425 Other: Voiding Method Urinal Urinal Results 05/25/21 00:35 05/25/21 00:35 Current Medications Generic Name Dose Route Start Last Admin Trade Name Freq PRN Reason Stop Dose Admin Acetaminophen 650 mg 05/25/21 01:27 Acetaminophen Tab 325 Mg Tab PO Q6HR PRN Pain Hydrocodone Bitart/Acetaminophen 1 each 05/25/21 11:12 05/25/21 11:42 Hydrocodone/Apap 7.5-325mg 1 Each Tab PO 1 each Q6H PRN Administration Pain Apixaban 5 mg 05/25/21 11:45 05/25/21 20:55 Apixaban 5 Mg Tab PO 5 mg BID KARRIE Administration Protocol Atorvastatin Calcium 40 mg 05/25/21 09:00 05/25/21 07:52 Atorvastatin 40 Mg Tab PO 40 mg DAILY KARRIE Administration Clopidogrel Bisulfate 75 mg 05/25/21 09:00 05/25/21 07:53 Clopidogrel 75 Mg Tab PO 75 mg DAILY KARRIE Administration Famotidine 20 mg 05/25/21 21:00 05/25/21 20:55 Famotidine 20 Mg Tab PO 20 mg BID KARRIE Administration Gabapentin 100 mg 05/25/21 16:00 07/13/21 20:55 Gabapentin 100 Mg Cap PO 100 mg TID KARRIE Administration Sodium Chloride 1,000 mls @ 100 mls/hr 05/25/21 01:30 05/26/21 06:52 Saline 0.9% IV 100 mls/hr .Q10H KARRIE Administration Ketorolac Tromethamine 15 mg 05/25/21 18:10 05/26/21 06:52 Ketorolac 15 Mg/Ml 1 Ml Vial IVP 05/28/21 18:10 15 mg Q6HR PRN Administration Pain Metoprolol Tartrate 12.5 mg 05/25/21 21:00 05/25/21 20:54 Metoprolol Tartrate 12.5 Mg Tab PO 12.5 mg BID KARRIE Administration Nicotine 1 patch 05/25/21 11:15 05/25/21 11:42 Nicotine 21mg/24hr Patch TRANSDERM 1 patch DAILY KARRIE Administration Pantoprazole Sodium 40 mg 05/25/21 11:15 05/26/21 06:52 Pantoprazole 40 Mg Tablet PO 40 mg AC-BID KARRIE Administration Intake and Output 05/25/21 05/26/21 05/26/21 22:59 06:59 14:59 Intake Total 250 Output Total 400 425 Balance -150 -425 Intake: IV 10 Invasive Line 2 10 Oral 240 Output: Urine 400 425 Other: Voiding Method Urinal Urinal 05/25/21 00:35 05/25/21 00:35
[2021-05-26 11:43] VITALS: BP 120/80; RESP 20
--- NOTE | 2021-05-26 12:46 | P.PN ---
Subjective Progress Note Date: 05/26/21 Patient states he is feeling better. Offers no new complaints. States his left-sided symptoms are better. Patient was noted to move his left arm and left leg normally, although when asked, complains of weakness of the left side. Objective - Vital Signs Vital signs: Vital Signs Temp 98.0 F 05/26/21 08:00 Pulse 69 05/26/21 08:00 Resp 20 05/26/21 08:00 BP 120/80 05/26/21 08:00 Pulse Ox 97 05/26/21 08:00 Intake & Output 05/25/21 05/26/21 05/26/21 18:59 06:59 18:59 Intake Total 240 10 240 Output Total 0 825 1175 Balance 240 -815 -935 Weight 74.843 kg Intake: IV 10 Invasive Line 2 10 Oral 240 240 Output: Urine 0 825 1175 Stool 0 Other: Voiding Method Urinal Urinal # Voids 0 # Bowel Movements 0 - Exam Mental status, speech and language functions, cranial nerves normal. Muscle strength shows no pronator drift. The muscle strength has inconsistent response on the left. Normal on the right. - Labs CBC & Chem 7: 05/25/21 00:35 05/25/21 00:35 Assessment and Plan Assessment: * Left sided weakness and numbness, probable due to conversion disorder. MRI of the brain negative for any acute stroke. * Reported history of atrial fibrillation on long-term anticoagulation with Eliquis. * Hypertension * Previous history of possible CVA. * Tobacco use Plan: * MRI of brain normal. No acute stroke. * CTA of head and neck are normal. * 2-D echo shows normal left ventricular size. Left-ventricular systolic function is mildly impaired with EF between 45-50%. Basal posterior, mid posterior lateral ventricular wall motion is hypokinetic. Left atrium is mildly dilated. Agitated saline revealed no PFO. No shunt. * Continue Eliquis and aspirin for now. * Hemoglobin A1c 5.4 * Lipid panel with Cholesterol 107, LDL 63.6, HDL 26, TG 87. Continue Lipitor 40 mg. * Recommend complete tobacco cessation. * Neurologically clear for discharge.
--- NOTE | 2021-05-26 15:24 | P.DS ---
Providers Date of admission: 05/25/21 01:27 Expected date of discharge: 05/26/21 Attending physician: Melani Gomez Consults: 05/25/21 01:28 Consult Physician Routine Consulting Provider: Ric Colby Consult Reason/Comments: Acute ischemic stroke versus TIA Do you want consulting provider notified?: Yes 05/25/21 11:13 Consult Physician Routine Consulting Provider: Rodrigo Guan Consult Reason/Comments: chest pain Do you want consulting provider notified?: Yes Primary care physician: Caridad Todd MD Hospital Course: Final diagnosis -Possible syncope -Possible cerebral vascular accident involving left side of the body -Chest pain atypical ruled out acute coronary syndromes -Paroxysmal atrial fibrillation presently rate controlled -Coronary artery disease -Nicotine use: Counseling was provided -DVT prophylaxis Discharge disposition Patient is being discharged in a stable condition with guarded prognosis to home. Patient will follow-up with Dr. Todd,in the outpatient setting upon discharge. Patient will also follow-up with cardiology Dr. Guan in 2 weeks. Patient instructed to follow-up with his neurologist in the outpatient setting on discharge. Patient will continue with aspirin and Eliquis the outpatient setting. Total time taken is greater than 35 minutes. Hospital course Patient 40-year-old male came in with complaints of dizziness followed by possible syncope without any loss of bowel or bladder continence seizure-like activity no tongue biting, symptoms started last night patient woke up and found to have weakness in the left side of the face left arm and left leg along with tingling numbness. Patient denied any headache. Patient denied any nausea vomiting. Patient does have history of atrial fibrillation on Eliquis didn't miss any of the dose of Eliquis patient is also on aspirin 81 mg at home. Patient did have history of psoriasis fraction the past. Patient can use to smoke one pack of cigarettes per day. Patient still has weakness with 4/5 strength in left upper extremity left lower extremity may be a mild facial droop on the left side. Patient had a CT of the head and CT of the head both upper negative. E chocardiogram will be obtained. Cardiology and neurology will be consulted patient was also comparing of chest pain retrosternal burning radiating to the left arm. I do not have a an EKG available in the system EKG will be ordered and patient troponins were negative so far. 05/26/2021 Patient is seen in follow-up this morning and continues to have some mild residual left upper extremity weakness and strength noted on exam is 4 out of 5. Patient underwent MRI of the brain which was negative showing mild sinus disease with inflammatory change present in the ethmoid air cells. Patient was seen and evaluated by PT/OT therapy and is currently active with outpatient therapy and refusing home care. Patient instructed to follow-up with his neurologist this week and continue with anticoagulation and discuss with neurology about discontinuing aspirin. Patient also instructed to avoid tobacco use. Currently no reports of chest pain, shortness of breath, or palpitations. Patient is afebrile. No reports of nausea or vomiting and patient is tolerating diet. Patient will be discharged home today. On exam vital signs are stable. Cardio S1, S2 are muffled. Respiratory system shows diminished breath sounds at the bases with no wheezing or rhonchi noted. Abdomen is soft and nontender. Nervous system shows no focal deficits. Please refer to medication reconciliation sheet for a list of medications. Patient Condition at Discharge: Stable Plan - Discharge Summary Discharge Rx Participant: No New Discharge Prescriptions: New Atorvastatin [Lipitor] 40 mg PO DAILY #30 tab Ketorolac [Toradol] 10 mg PO Q6HR #12 tab Acetaminophen Tab [Tylenol] 650 mg PO Q6HR PRN tab PRN Reason: Pain Nicotine 21Mg/24Hr Patch [Habitrol] 1 patch TRANSDERM DAILY #30 patch Famotidine [Pepcid] 20 mg PO BID 30 Days #60 tab Continue Metoprolol Tartrate [Lopressor] 12.5 mg PO BID Aspirin EC [Ecotrin Low Dose] 81 mg PO DAILY Apixaban [Eliquis] 5 mg PO BID Gabapentin [Neurontin] 100 mg PO TID Discharge Medication List Aspirin EC [Ecotrin Low Dose] 81 mg PO DAILY 09/14/20 [History] Metoprolol Tartrate [Lopressor] 12.5 mg PO BID 09/14/20 [History] Apixaban [Eliquis] 5 mg PO BID 05/25/21 [History] Gabapentin [Neurontin] 100 mg PO TID 05/25/21 [History] Acetaminophen Tab [Tylenol] 650 mg PO Q6HR PRN tab 05/26/21 [Rx] Atorvastatin [Lipitor] 40 mg PO DAILY #30 tab 05/26/21 [Rx] Famotidine [Pepcid] 20 mg PO BID 30 Days #60 tab 05/26/21 [Rx] Ketorolac [Toradol] 10 mg PO Q6HR #12 tab 05/26/21 [Rx] Nicotine 21Mg/24Hr Patch [Habitrol] 1 patch TRANSDERM DAILY #30 patch 05/26/21 [Rx] Follow up Appointment(s)/Referral(s): Rodrigo Guan MD [STAFF PHYSICIAN] - 2 Weeks (Office will call you with an appointment.) Caridad Todd MD [Primary Care Provider] - 1 Week (Office closed, please call during business hours. ) Patient Instructions/Handouts: Stroke (GEN) Activity/Diet/Wound Care/Special Instructions: Activity Limited until follow-up Follow up with primary care provider upon discharge continue with medications as prescribed follow up with cardiology DR. Guan and neurology outpatient and also discuss continuing aspirin Continue Eliquis Continue heart healthy diet Continue to attempt to quit smoking and avoid tobacco use Discharge Disposition: HOME SELF-CARE
[2021-05-26 17:39] LABS: Chol/HDL Ratio 4.12; LDL Cholesterol,Calculated 63.6 mg/dL (0.0-131.0); VLDL Calculation 17.4 mg/dL (5.00-40.00)
--- NOTE | 2021-06-07 15:15 | CDI ---
Documentation Clarification Form Date: 06/07/2021 From: JOSH Ramirez Admit Date: 05/25/2021 01:27:00 AM Patient Name: Jose Luis Hart Visit Number: [id number] Discharge Date: 05/26/2021 02:12:00 PM ATTENTION: The Clinical Documentation Specialists (CDI) and [facility] Coding Staff appreciate your assistance in clarifying documentation. Please respond to the clarification below the line at the bottom and electronically sign. The CDI & [facility] Coding staff will review the response and follow-up if needed. Please note: Queries are made part of the Legal Health Record. If you have any questions, please contact the author of this message via ITS. Dr. Nicky Dinero Conflicting documentation has been found in the medical record. As attending physician, please provide clarification. Progress Note 05/26: Assessment and Plan "Left sided weakness and numbness, probable due to conversion disorder. MRI of the brain negative for any acute stroke" Discharge Summary: Final diagnosis- Possible syncope Possible cerebrovascular accident involving left side of the body Patient is instructed to follow up with his neurologist in the outpatient setting upon discharge. Please clarify which diagnosis is most appropriate: [ x ] Conversion disorder [ ] Cerebrovascular accident [ ] Other (please specify) [ ] Unable to determine No CVA MTDD
== END 2021-05-26 14:12 | disposition home or self-care (01) | DRG 880 ==
LOC: EC 00:15 → 3SCARD 01:27
PROVIDERS: ADMIT Hospitalist; ATTEND Hospitalist
DX: F44.9 Dissociative and conversion disorder, unspecified (principal); Q87.40 Marfan syndrome, unspecified; G81.94 Hemiplegia, unspecified affecting left nondominant side; I25.10 Atherosclerotic heart disease of native coronary artery without angina pectoris; R07.89 Other chest pain; I48.0 Paroxysmal atrial fibrillation; R29.707 NIHSS score 7; F17.210 Nicotine dependence, cigarettes, uncomplicated; R55 Syncope and collapse; I10 Essential (primary) hypertension; H54.62 Unqualified visual loss, left eye, normal vision right eye; Z86.73 Personal history of transient ischemic attack (TIA), and cerebral infarction without residual deficits; Z79.01 Long term (current) use of anticoagulants; Z79.82 Long term (current) use of aspirin; Z79.899 Other long term (current) drug therapy; Z88.8 Allergy status to other drugs, medicaments and biological substances; Z90.49 Acquired absence of other specified parts of digestive tract; Z71.6 Tobacco abuse counseling; Z87.74 Personal history of (corrected) congenital malformations of heart and circulatory system; Z82.3 Family history of stroke; Z82.49 Family history of ischemic heart disease and other diseases of the circulatory system
CPT/HCPCS: 36415; 70450; 70496; 70498; 70551; 71045; 80053; 80061; 83036; 84484; 85025; 85610; 85730; 93005; 93306; 96361; 96374; 99285

== ENCOUNTER 2021-06-28 01:57 | Inpatient (IN) | payer MEDICARE, OTHER ==
[2021-06-28 02:21] LABS: Glucose,Whole Blood 94 mg/dL (75-99)
--- NOTE | 2021-06-28 02:23 | ED ---
Neuro HPI - General Chief Complaint: Neuro Symptoms/Deficit Stated Complaint: Poss stroke Time Seen by Provider: 06/28/21 02:09 Source: patient, family Mode of arrival: ambulatory Limitations: no limitations - History of Present Illness Is the patient presenting with stroke symptoms?: Yes Last Known Well Date: 06/28/21 Last Known Well Time: 01:00 -: hour(s) Initial Comments: This patient is a 40-year-old man who presents with a constellation of symptoms that he states he has had previous strokes. Patient noticed that his left side was numb and also a little weak. He also shortly after that developed chest pain. Location: left arm, left leg History of same: Yes Place: home Severity: moderate Quality: weak, numb Improves With: none Worsens With: none On Anticoagulants: Yes Context: sudden onset Associated Symptoms: chest pain Treatments Prior to Arrival: none - Related Data Home Medications: Home Medications Medication Instructions Recorded Confirmed Aspirin EC [Ecotrin Low Dose] 81 mg PO DAILY 09/14/20 05/25/21 Metoprolol Tartrate [Lopressor] 12.5 mg PO BID 09/14/20 05/25/21 Apixaban [Eliquis] 5 mg PO BID 05/25/21 05/25/21 Gabapentin [Neurontin] 100 mg PO TID 05/25/21 05/25/21 Previous Rx's Medication Instructions Recorded Acetaminophen Tab [Tylenol] 650 mg PO Q6HR PRN tab 05/26/21 Atorvastatin [Lipitor] 40 mg PO DAILY #30 tab 05/26/21 Famotidine [Pepcid] 20 mg PO BID 30 Days #60 tab 05/26/21 Ketorolac [Toradol] 10 mg PO Q6HR #12 tab 05/26/21 Nicotine 21Mg/24Hr Patch [Habitrol] 1 patch TRANSDERM DAILY #30 patch 05/26/21 Allergies/Adverse Reactions: Allergies Allergy/AdvReac Type Severity Reaction Status Date / Time nitroglycerin AdvReac Itching Verified 06/28/21 02:03 Review of Systems ROS Statement: Those systems with pertinent positive or pertinent negative responses have been documented in the HPI. ROS Other: All systems not noted in ROS Statement are negative. Constitutional: Denies: fever, chills Eyes: Denies: vision change Respiratory: Denies: cough, dyspnea Cardiovascular: Reports: chest pain. Denies: palpitations, edema, syncope Gastrointestinal: Denies: abdominal pain, nausea, vomiting, diarrhea Genitourinary: Denies: dysuria, hematuria Musculoskeletal: Denies: back pain Skin: Denies: rash Neurological: Reports: weakness, numbness. Denies: headache, confusion General Exam Limitations: no limitations General appearance: alert, in no apparent distress Head exam: Present: atraumatic, normocephalic Eye exam: Present: normal appearance. Absent: scleral icterus, conjunctival injection ENT exam: Present: normal oropharynx Neck exam: Present: normal inspection, full ROM Respiratory exam: Present: normal lung sounds bilaterally. Absent: respiratory distress, wheezes, rales, rhonchi, stridor Cardiovascular Exam: Present: regular rate, normal rhythm, normal heart sounds. Absent: systolic murmur, diastolic murmur, rubs, gallop GI/Abdominal exam: Present: soft. Absent: distended, tenderness, guarding, rebound, rigid, mass Extremities exam: Present: normal inspection, normal capillary refill. Absent: pedal edema, calf tenderness Back exam: Present: normal inspection Neurological exam: Present: alert, oriented X3, CN II-XII intact, other (The patient's neurologic exam has not reproducible, the left-sided weakness does seem to be somewhat effort dependent). Absent: motor sensory deficit Expanded Patient oriented to: Present: person, place, time Speech: Present: fluid speech Cranial nerves: EOM's Intact: Normal, Tongue Deviation: Normal, Facial Sensation: Normal Cerebellar function: Finger to Nose: Normal, Heel to Hall: Normal, Romberg: Normal Motor strength exam: RUE: 5, LUE: 4, RLE: 5, LLE: 3 Eye Response: (4) open spontaneously Motor Response: (6) obeys commands Verbal Response: (5) oriented Skin exam: Present: warm, dry, intact, normal color. Absent: rash Stroke MDM - Lab Data Result diagrams: 06/28/21 02:37 06/28/21 02:37 Lab Results 06/28/21 06/28/21 06/28/21 Range/Units 02:19 02:37 02:37 WBC 6.4 (3.8-10.6) k/uL RBC 5.02 (4.30-5.90) m/uL Hgb 16.5 (13.0-17.5) gm/dL Hct 47.2 (39.0-53.0) % MCV 94.1 (80.0-100.0) fL MCH 32.9 (25.0-35.0) pg MCHC 34.9 (31.0-37.0) g/dL RDW 12.8 (11.5-15.5) % Plt Count 306 (150-450) k/uL MPV 6.9 Neutrophils % 40 % Lymphocytes % 46 % Monocytes % 7 % Eosinophils % 3 % Basophils % 1 % Neutrophils # 2.6 (1.3-7.7) k/uL Lymphocytes # 3.0 (1.0-4.8) k/uL Monocytes # 0.4 (0-1.0) k/uL Eosinophils # 0.2 (0-0.7) k/uL Basophils # 0.1 (0-0.2) k/uL PT 10.5 (9.0-12.0) sec INR 1.0 (<1.2) APTT 27.9 (22.0-30.0) sec Sodium (137-145) mmol/L Potassium (3.5-5.1) mmol/L Chloride (98-107) mmol/L Carbon Dioxide (22-30) mmol/L Anion Gap mmol/L BUN (9-20) mg/dL Creatinine (0.66-1.25) mg/dL Est GFR (CKD-EPI)AfAm (>60 ml/min/1.73 sqM) Est GFR (CKD-EPI)NonAf (>60 ml/min/1.73 sqM) Glucose (74-99) mg/dL POC Glucose (mg/dL) 94 (75-99) mg/dL POC Glu [employer] ID Murphy Ruiz Calcium (8.4-10.2) mg/dL Total Bilirubin (0.2-1.3) mg/dL AST (17-59) U/L ALT (4-49) U/L Alkaline Phosphatase (38-126) U/L Troponin I (0.000-0.034) ng/mL Total Protein (6.3-8.2) g/dL Albumin (3.5-5.0) g/dL 06/28/21 06/28/21 Range/Units 02:37 02:37 WBC (3.8-10.6) k/uL RBC (4.30-5.90) m/uL Hgb (13.0-17.5) gm/dL Hct (39.0-53.0) % MCV (80.0-100.0) fL MCH (25.0-35.0) pg MCHC (31.0-37.0) g/dL RDW (11.5-15.5) % Plt Count (150-450) k/uL MPV Neutrophils % % Lymphocytes % % Monocytes % % Eosinophils % % Basophils % % Neutrophils # (1.3-7.7) k/uL Lymphocytes # (1.0-4.8) k/uL Monocytes # (0-1.0) k/uL Eosinophils # (0-0.7) k/uL Basophils # (0-0.2) k/uL PT (9.0-12.0) sec INR (<1.2) APTT (22.0-30.0) sec Sodium 138 (137-145) mmol/L Potassium 4.1 (3.5-5.1) mmol/L Chloride 106 (98-107) mmol/L Carbon Dioxide 23 (22-30) mmol/L Anion Gap 9 mmol/L BUN 15 (9-20) mg/dL Creatinine 0.76 (0.66-1.25) mg/dL Est GFR (CKD-EPI)AfAm >90 (>60 ml/min/1.73 sqM) Est GFR (CKD-EPI)NonAf >90 (>60 ml/min/1.73 sqM) Glucose 95 (74-99) mg/dL POC Glucose (mg/dL) (75-99) mg/dL POC Glu [employer] Driver ID Calcium 10.1 (8.4-10.2) mg/dL Total Bilirubin 0.2 (0.2-1.3) mg/dL AST 32 (17-59) U/L ALT 45 (4-49) U/L Alkaline Phosphatase 92 (38-126) U/L Troponin I <0.012 (0.000-0.034) ng/mL Total Protein 7.0 (6.3-8.2) g/dL Albumin 4.4 (3.5-5.0) g/dL - EKG Data -: EKG Interpreted by Pa EKG shows normal: sinus rhythm, axis (Rightward axis), intervals (Normal), QRS complexes (Normal), ST-T waves (Normal) Rate: normal (Rate 74 bpm) Past Medical History Past Medical History: Coronary Artery Disease (CAD), Chest Pain / Angina, Neurologic Disorder Additional Past Medical History / Comment(s): Marfan's, "enlarged aorta" History of Any Multi-Drug Resistant Organisms: None Reported Past Surgical History: Appendectomy, Heart Catheterization Past Psychological History: No Psychological Hx Reported Smoking Status: Current every day smoker Past Alcohol Use History: None Reported Past Drug Use History: None Reported - Past Family History Father Family Medical History: CVA/TIA, Hypertension, Myocardial Infarction (OR) Additional Family Medical History / Comment(s): states he D/T brain aneurysm Mother Family Medical History: Hypertension Additional Family Medical History / Comment(s): states cancer runs on her side of the family Course Vital Signs 06/28/21 06/28/21 06/28/21 01:59 02:27 02:42 Temperature 98 F 97.9 F Pulse Rate 78 61 71 Respiratory 22 20 20 Rate Blood Pressure 131/97 122/80 126/88 O2 Sat by Pulse 97 100 99 Oximetry 06/28/21 06/28/21 06/28/21 02:57 03:12 03:42 Temperature Pulse Rate 69 65 65 Respiratory 21 20 20 Rate Blood Pressure 120/87 130/89 118/82 O2 Sat by Pulse 98 100 99 Oximetry 06/28/21 06/28/21 06/28/21 04:12 04:42 05:12 Temperature Pulse Rate 60 52 L 58 L Respiratory 20 20 20 Rate Blood Pressure 114/93 118/79 113/79 O2 Sat by Pulse 99 99 99 Oximetry 06/28/21 05:42 Temperature Pulse Rate 52 L Respiratory 20 Rate Blood Pressure 108/81 O2 Sat by Pulse 100 Oximetry - Reevaluation(s) Reevaluation #1: 06/28/21 03:07 Case is managed as a code stroke. We were not able to reach the physician who was covering, but I did discuss the case with Baldemar Del Castillo on the stroke team and given that the patient is on eliquis, not a TPA candidate. Disposition Clinical Impression: Chest pain, Transient cerebral ischemia Narrative: TIA vs conversion disorder Disposition: ADMITTED IP TO THIS HOSP Condition: Good Is patient prescribed a controlled substance at d/c from ED?: No
--- NOTE | 2021-06-28 02:37 | XR ---
EXAMINATION TYPE: XR chest 1V DATE OF EXAM: 06/28/2021 COMPARISON: 05/25/2021 HISTORY: Altered mental status TECHNIQUE: Single view FINDINGS: Heart and mediastinum are normal. Lungs are clear. Diaphragm is normal. Bony thorax appears normal. IMPRESSION: Normal chest. No change.
--- NOTE | 2021-06-28 02:46 | CT ---
EXAMINATION TYPE: CT brain wo con for TPA DATE OF EXAM: 06/28/2021 COMPARISON: 11/25/2020 HISTORY: stroke CT DLP: 1091 mGycm Automated exposure control for dose reduction was used. Ventricles of normal size. There is no mass effect nor midline shift. There is no sign of intracrania l hemorrhage. There is no evidence of cerebral edema. Calvarium is intact. Skull base is intact. IMPRESSION: Negative Unenhanced head CT scan. no change.
[2021-06-28 02:48] LABS: Basophils # (A) 0.1 k/uL (0-0.2); Basophils % (A) 1 %; Eosinophils # (A) 0.2 k/uL (0-0.7); Eosinophils % (A) 3 %; HCT 47.2 % (39.0-53.0); HGB 16.5 gm/dL (13.0-17.5); Lymphocytes % (A) 46 %; MCH 32.9 pg (25.0-35.0); MCHC 34.9 g/dL (31.0-37.0); MCV 94.1 fL (80.0-100.0); Mean Platelet Volume 6.9; Monocytes # (A) 0.4 k/uL (0-1.0); Monocytes % (A) 7 %; Neutrophils # (A) 2.6 k/uL (1.3-7.7); Neutrophils % (A) 40 %; Platelet Count 306 k/uL (150-450); RBC 5.02 m/uL (4.30-5.90); RDW 12.8 % (11.5-15.5); WBC 6.4 k/uL (3.8-10.6)
--- NOTE | 2021-06-28 02:52 | CT ---
EXAMINATION TYPE: CT angio head neck DATE OF EXAM: 06/28/2021 COMPARISON: 05/25/2021 HISTORY: stroke CT DLP: 454.8 mGycm Automated exposure control for dose reduction was used. CONTRAST: Performed with IV Contrast, patient injected with 65 mL of Isovue 370. Images obtained from the aortic arch to the vertex of the brain with IV contrast and 3-D post process ed images. FINDINGS: There is normal branching pattern of the great vessels on the aortic arch. There is bilateral arteria l flow in the subclavian arteries. There is arterial flow in both vertebral arteries. There is arteri al flow in the common internal and external carotid arteries bilaterally. There is wide patency of th e carotid artery bifurcations. There is no evidence of carotid or vertebral artery aneurysm or dissec tion. There is arterial flow in the vertebrobasilar artery system. There is arterial flow in the anterior m iddle and posterior cerebral arteries. There is no evidence of intracranial aneurysm or neovascularit y. There is no mass effect. There is no evidence of arterial stenosis. There is normal enhancement of the venous sinuses. IMPRESSION: Normal CT angiogram of the neck. Normal CT angiogram of the brain. No adverse change compared to old exam.
[2021-06-28 02:54] LABS: Partial Thromboplastin Time 27.9 sec (22.0-30.0); Prothrombin Time 10.5 sec (9.0-12.0)
[2021-06-28 03:03] LABS: ALT 45 U/L (4-49); AST 32 U/L (17-59); African American GFR (CKD) >90 (>60 ml/min/1.73 sqM); Albumin 4.4 g/dL (3.5-5.0); Alkaline Phosphatase 92 U/L (38-126); Anion Gap 9 mmol/L; Blood Urea Nitrogen 15 mg/dL (9-20); Calcium 10.1 mg/dL (8.4-10.2); Carbon Dioxide 23 mmol/L (22-30); Chloride 106 mmol/L (98-107); Glucose 95 mg/dL (74-99); Non-African American GFR(CKD) >90 (>60 ml/min/1.73 sqM); Potassium 4.1 mmol/L (3.5-5.1); Sodium 138 mmol/L (137-145); Total Bilirubin 0.2 mg/dL (0.2-1.3)
[2021-06-28] MEDS ORDERED: KETOROLAC 15 MG/ML 1 ML VIAL IVP STA (03:54)
[2021-06-28] MEDS ORDERED: ASPIRIN 81 MG PO STA (03:54)
[2021-06-28] MEDS ORDERED: ACETAMINOPHEN TAB 325 MG TAB PO PRN (04:43)
[2021-06-28] MEDS ORDERED: SODIUM CHLORIDE 0.9% 1,000 ML IV SCH (04:45)
[2021-06-28] MEDS ORDERED: HYDROcodone/APAP 5-325MG 1 EACH TAB PO STA (04:49)
[2021-06-28 06:17] VITALS: PULSE 50
[2021-06-28] MEDS ORDERED: FAMOTIDINE 20 MG TAB PO SCH (09:00)
[2021-06-28] MEDS ORDERED: ETODOLAC 300 MG CAPSULE PO PRN (09:36)
[2021-06-28] MEDS ORDERED: GABAPENTIN 100 MG CAP PO SCH (09:45)
[2021-06-28] MEDS ORDERED: APIXABAN 5 MG TAB PO SCH (09:45)
[2021-06-28 10:09] VITALS: BP 124/82; RESP 18; TEMP 97.5
--- NOTE | 2021-06-28 10:42 | P.DS ---
Providers Date of admission: 06/28/21 04:43 Attending physician: Melani Gomez Consults: 06/28/21 04:46 Consult Physician Routine Consulting Provider: Darwin Gay Consult Reason/Comments: Possible conversion disorder Do you want consulting provider notified?: Already Contacted Consult Physician Routine Consulting Provider: Ric Colby Consult Reason/Comments: Possible TIA Do you want consulting provider notified?: Yes Primary care physician: Caridad Todd MD Hospital Course: Please refer to my history of present illness for further details Patient Condition at Discharge: Good Plan - Discharge Summary New Discharge Prescriptions: No Action Metoprolol Tartrate [Lopressor] 12.5 mg PO BID Apixaban [Eliquis] 5 mg PO BID Atorvastatin [Lipitor] 40 mg PO DAILY #30 tab Gabapentin [Neurontin] 100 mg PO TID Ketorolac [Toradol] 10 mg PO DAILY PRN PRN Reason: Pain Discharge Medication List Metoprolol Tartrate [Lopressor] 12.5 mg PO BID 09/14/20 [History] Apixaban [Eliquis] 5 mg PO BID 05/25/21 [History] Gabapentin [Neurontin] 100 mg PO TID 05/25/21 [History] Atorvastatin [Lipitor] 40 mg PO DAILY #30 tab 05/26/21 [Rx] Ketorolac [Toradol] 10 mg PO DAILY PRN 06/28/21 [History] Follow up Appointment(s)/Referral(s): Caridad Todd MD [Primary Care Provider] - 3 Days Discharge Disposition: HOME SELF-CARE
--- NOTE | 2021-06-28 10:42 | P.HPIM ---
History of Present Illness Patient is a 40-year-old male came in with complains of weakness in the left side of the body. Patient will also benefit of chest pain pressure-like sensation with radiation to the left arm. Patient was extensively evaluated in the past for similar symptoms at that time patient MRI echocardiogram all the workup is negative. Echo at that time showed EF of around 45-50% patient has known history of atrial fibrillation on Eliquis, patient is also on metoprolol but does have mild sinus bradycardia. Regarding the chest pain patient follows up with cardiology as an outpatient and patient presented with similar symptoms cardiology recommended follow-up as an outpatient at the time patient's troponins were negative EKG did not show any acute ST-T wave changes, we ruled out acute coronary syndromes. As per the nursing stress patient keeps on requesting for opiate pain medications. Patient was evaluated by neurology. Patient had a CT of the head and CT angios the head which did not show any significant abnormality. Neurology is not commanding any further workup at this time. Patient has 4+/5 strength in the left upper extremity with normal reflexes Patient is already on Eliquis, patient will be asked to follow-up with the his PCP and cardiology as an outpatient patient will be discharged today. REVIEW OF SYSTEMS: CONSTITUTIONAL: No fever, no malaise, no fatigue. HEENT: No recent visual problems or hearing problems. Denied any sore throat. CARDIOVASCULAR: No orthopnea, PND, no palpitations, no syncope. PULMONARY: No shortness of breath, no cough, no hemoptysis. GASTROINTESTINAL: No diarrhea, no nausea, no vomiting, no abdominal pain. NEUROLOGICAL: No headaches. HEMATOLOGICAL: Denies any bleeding or petechiae. GENITOURINARY: Denies any burning micturition, frequency, or urgency. MUSCULOSKELETAL/RHEUMATOLOGICAL: Denies any joint pain, swelling, or any muscle pain. ENDOCRINE: Denies any polyuria or polydipsia. The rest of the 14-point review of systems is negative. PHYSICAL EXAMINATION: GENERAL: The patient is alert and oriented x3, not in any acute distress. Well developed, well nourished. HEENT: Pupils are round and equally reacting to light. EOMI. No scleral icterus. No conjunctival pallor. Normocephalic, atraumatic. No pharyngeal erythema. No thyromegaly. CARDIOVASCULAR: S1 and S2 present. No murmurs, rubs, or gallops. PULMONARY: Chest is clear to auscultation, no wheezing or crackles. ABDOMEN: Soft, nontender, nondistended, normoactive bowel sounds. No palpable o rganomegaly. MUSCULOSKELETAL: No joint swelling or deformity. EXTREMITIES: No cyanosis, clubbing, or pedal edema. NEUROLOGICAL: As mentioned in HPI SKIN: No rashes. Assessment and plan -Complaints of weakness in the left arm: Possibility of several vascular accident is low. The other possibilities being conversion disorder or narcotic seeking behavior. Patient was reassured and patient will follow-up with the PCP patient will continue with the Eliquis. 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 -Congestive heart failure chronic systolic dysfunction EF of around 40 with 50% not in acute exacerbation at this time -History of Marfan's -Nicotine use: Counseling was provided patient smokes about a half a pack per d ay patient is trying to quit and he Is Working Quite a Bit Past Medical History Past Medical History: Coronary Artery Disease (CAD), Chest Pain / Angina, Ne urologic Disorder Additional Past Medical History / Comment(s): Marfan's, "enlarged aorta" History of Any Multi-Drug Resistant Organisms: None Reported Past Surgical History: Appendectomy, Heart Catheterization Past Psychological History: No Psychological Hx Reported Smoking Status: Current every day smoker Past Alcohol Use History: None Reported Past Drug Use History: None Reported - Past Family History Father Family Medical History: CVA/TIA, Hypertension, Myocardial Infarction ([place]) Additional Family Medical History / Comment(s): states he D/T brain aneurysm Mother Family Medical History: Hypertension Additional Family Medical History / Comment(s): states cancer runs on her side of the family Medications and Allergies Home Medications Medication Instructions Recorded Confirmed Type Metoprolol Tartrate [Lopressor] 12.5 mg PO BID 09/14/20 06/28/21 History Apixaban [Eliquis] 5 mg PO BID 05/25/21 06/28/21 History Gabapentin [Neurontin] 100 mg PO TID 05/25/21 06/28/21 History Atorvastatin [Lipitor] 40 mg PO DAILY #30 tab 05/26/21 06/28/21 Rx Ketorolac [Toradol] 10 mg PO DAILY PRN 06/28/21 06/28/21 History Allergies Allergy/AdvReac Type Severity Reaction Status Date / Time nitroglycerin AdvReac Itching Verified 06/28/21 06:39 Physical Exam Vitals: Vital Signs Temp Pulse Resp BP Pulse Ox 06/28/21 10:00 97.5 F L 50 L 18 124/82 99 06/28/21 07:00 50 L 20 112/79 99 06/28/21 06:15 50 L 20 110/88 98 06/28/21 05:42 52 L 20 108/81 100 06/28/21 05:12 58 L 20 113/79 99 06/28/21 04:42 52 L 20 118/79 99 06/28/21 04:12 60 20 114/93 99 06/28/21 03:42 65 20 118/82 99 06/28/21 03:12 65 20 130/89 100 06/28/21 02:57 69 21 120/87 98 06/28/21 02:42 71 20 126/88 99 06/28/21 02:27 97.9 F 61 20 122/80 100 06/28/21 01:59 98 F 78 22 131/97 97 Intake and Output 06/27/21 06/28/21 06/28/21 22:59 06:59 14:59 Other: Weight 72.575 kg Results CBC & Chem 7: 06/28/21 02:37 06/28/21 02:37
--- NOTE | 2021-06-28 11:12 | P.CNNES ---
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 Patient states that at midnight he was just laying in the bed, was still awake. He noticed numbness of left side of the face arm and leg. His whole left side of the body felt numb and weak. There was no slurred speech, there was "little drooping" of left side of the face. 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 Patient came to the ER at 7:57 AM. Patient denies any alteration or loss of consciousness. Patient's vitals on arrival blood pressure 131/97, pulse rate 78, temperature 98.0. Blood tests shows normal CBC PT/PTT, Chem-7 20. Troponin negative. Patient's last hemoglobin A1c 5.4 on 05/25/2021. Patient's cholesterol is 107, LDL 63.6, HDL 26 and triglycerides 87 all normal. Vitamin B12 is 980, RBC folate 461 which is normal. TSH normal. EKG was normal. CTA of head and neck are again normal. CT head normal. Chest x-ray normal. Stroke code was activated, but patient was not a candidate for TPA, as he was on Eliquis, compliant with medication. Patient was recently seen by myself on 05/25/2021 for possible CVA manifesting with left hemiparesis, left visual field deficit and left hemisensory deficit. Patient had some inconsistencies in examination and functional disorder was suspected. Patient has history of atrial fibrillation also on long-term anticoagulation with Eliquis. Patient had a normal CTA of head and neck. Also had a normal MRI of the brain, therefore probable conversion disorder was suspected. Patient is currently on Eliquis 5 mg twice a day, metoprolol 12.5 mg twice a day, gabapentin 100 one 3 times a day, Lipitor 40 mg and ketorolac 10 mg when necessary. Patient is currently smoking half pack per day since last admission. Previously was smoking 1 pack per day. Patient denies any history of migraines. He states that since he arrived to the hospital he is no better or worse. He has a little headache on the left side. No previous history of migraines. He denies any stresses or any issues at his home with family. He does not work and is on disability. Denies any neck pain and low back pain or any problem with bowel or bladder control. He lives with his . He has 6 children at home, 3 from each side. Patient states his dad has a history of stroke. Review of Systems As mentioned above in detail. All other review of systems unremarkable. Denies any seizure, Past Medical History Past Medical History: Coronary Artery Disease (CAD), Chest Pain / Angina, Neurologic Disorder Additional Past Medical History / Comment(s): Marfan's, "enlarged aorta" History of Any Multi-Drug Resistant Organisms: None Reported Past Surgical History: Appendectomy, Heart Catheterization Past Psychological History: No Psychological Hx Reported Smoking Status: Current every day smoker Past Alcohol Use History: None Reported Past Drug Use History: None Reported - Past Family History Father Family Medical History: CVA/TIA, Hypertension, Myocardial Infarction ([place]) Additional Family Medical History / Comment(s): states he D/T brain aneurysm Mother Family Medical History: Hypertension Additional Family Medical History / Comment(s): states cancer runs on her side of the family Medications and Allergies Home Medications Medication Instructions Recorded Confirmed Type Metoprolol Tartrate [Lopressor] 12.5 mg PO BID 09/14/20 06/28/21 History Apixaban [Eliquis] 5 mg PO BID 05/25/21 06/28/21 History Gabapentin [Neurontin] 100 mg PO TID 05/25/21 06/28/21 History Atorvastatin [Lipitor] 40 mg PO DAILY #30 tab 05/26/21 06/28/21 Rx Ketorolac [Toradol] 10 mg PO DAILY PRN 06/28/21 06/28/21 History Allergies Allergy/AdvReac Type Severity Reaction Status Date / Time nitroglycerin AdvReac Itching Verified 06/28/21 06:39 Physical Examination - Vital Signs Vital Signs: Vital Signs Temp Pulse Resp BP Pulse Ox 06/28/21 07:00 50 L 20 112/79 99 06/28/21 06:15 50 L 20 110/88 98 06/28/21 05:42 52 L 20 108/81 100 06/28/21 05:12 58 L 20 113/79 99 06/28/21 04:42 52 L 20 118/79 99 06/28/21 04:12 60 20 114/93 99 06/28/21 03:42 65 20 118/82 99 06/28/21 03:12 65 20 130/89 100 06/28/21 02:57 69 21 120/87 98 06/28/21 02:42 71 20 126/88 99 06/28/21 02:27 97.9 F 61 20 122/80 100 06/28/21 01:59 98 F 78 22 131/97 97 Intake and Output 06/27/21 06/28/21 06/28/21 22:59 06:59 14:59 Other: Weight 72.575 kg Patient is a middle aged male, in no acute distress. Patient is alert awake oriented to time place and person. Speech and language functions are normal. Attention, concentration and fund of knowledge is adequate. Patient has a slightly flat affect. On cranial examination, right pupil is minimally larger than the left. Both are round and reacting. His visual thomas are full on confrontation, extraocular muscles are intact with no nystagmus. Face is symmetric although been active testing, he appears to move the left side less than the right. His tongue protrudes to the midline and good [id number] movement. Palatal elevation and sensation normal, hearing and shoulder shrug normal, facial sensation normal. Shoulder shrug normal. On muscle strength testing, there is left sided drift. The strength strength is normal in right arms and legs distally and proximally. On the left side, his left upper extremity is diffusely 5-distally and proximally with giveaway weakness. Likewise his left leg is 4+5-on the left. Deep tendon reflexes are very symmetric, 2 in the biceps and brachioradialis, 1+ at the knees, 2 ankles and plantars are downgoing. No clonus. Sensory to touch is slightly decreased on the left. Cerebellar function showed no ataxia for [id number] testing. No dysdiadochokinesia. Tone and bulk of muscles normal. Gait normal. On general examination, there is no carotid bruit or murmur, S1-S2 audible. Abdomen is soft nontender. Chest is clear. Peripheral pulses are present. No edema. Results - Laboratory Findings CBC and BMP: 06/28/21 02:37 06/28/21 02:37 Assessment and Plan Assessment: * Recurrent focal symptoms with left-sided weakness and numbness with negative workup. Patient has some inconsistencies in examination. Conversion disorder is definitely a possibility. Hemiplegic migraines also in the differential but he has no previous history of migraines. * Atrial fibrillation on long-term anticoagulation with Eliquis. Patient is compliant with medications. * Hypertension * Tobacco use Plan: * Continue Eliquis 5 mg twice a day. * Recommend complete tobacco cessation. * Discussed with Dr. Dinero about possibility of AR, but Dr. Dinero believes it will not change the management, as he is already on anticoagulation. * Regarding complains of chest pain, we'll defer to IM. * Continue Lipitor 40 mg daily, as his lipids are well controlled. * Suggest psychiatry consultation for evaluation of possible conversion disorder. Patient denies any excessive stresses at home. He is on disability.
[2021-06-29] MEDS ORDERED: ASPIRIN 325 MG TAB PO SCH (09:00)
[2021-06-29] MEDS ORDERED: ATORVASTATIN 40 MG TAB PO SCH (09:00)
== END 2021-06-28 11:18 | disposition home or self-care (01) | DRG 880 ==
LOC: EC 01:57 → 3SCARD 04:43
PROVIDERS: ADMIT Hospitalist; ATTEND Hospitalist
DX: F44.9 Dissociative and conversion disorder, unspecified (principal); G45.9 Transient cerebral ischemic attack, unspecified; I50.22 Chronic systolic (congestive) heart failure; F17.210 Nicotine dependence, cigarettes, uncomplicated; H54.62 Unqualified visual loss, left eye, normal vision right eye; I11.0 Hypertensive heart disease with heart failure; I25.10 Atherosclerotic heart disease of native coronary artery without angina pectoris; I48.91 Unspecified atrial fibrillation; Z79.01 Long term (current) use of anticoagulants; Z79.899 Other long term (current) drug therapy; Z82.49 Family history of ischemic heart disease and other diseases of the circulatory system; Z86.73 Personal history of transient ischemic attack (TIA), and cerebral infarction without residual deficits; Z79.82 Long term (current) use of aspirin
CPT/HCPCS: 36415; 70450; 70496; 70498; 71045; 80053; 84484; 85025; 85610; 85730; 93005

== ENCOUNTER → 2021-10-20 | Outpatient (CLI) | payer MEDICARE, OTHER ==
[2021-10-20 15:21] LABS: African American GFR (CKD) >90 (>60 ml/min/1.73 sqM); Anion Gap 5 mmol/L; Blood Urea Nitrogen 16 mg/dL (9-20); Carbon Dioxide 29 mmol/L (22-30); Chloride 103 mmol/L (98-107); Non-African American GFR(CKD) >90 (>60 ml/min/1.73 sqM); Sodium 137 mmol/L (137-145)
[2021-10-20 15:48] LABS: HCT 43.7 % (39.0-53.0); HGB 14.7 gm/dL (13.0-17.5); MCH 32.9 pg (25.0-35.0); MCHC 33.7 g/dL (31.0-37.0); MCV 97.6 fL (80.0-100.0); Mean Platelet Volume 7.2; Platelet Count 271 k/uL (150-450); RBC 4.48 m/uL (4.30-5.90); RDW 11.9 % (11.5-15.5); WBC 7.7 k/uL (3.8-10.6)
== END | disposition home or self-care (01) ==
LOC: LABPAT 14:31
PROVIDERS: ATTEND Internal Medicine Interventional Cardiology
DX: R07.9 Chest pain, unspecified (principal)
CPT/HCPCS: 80051; 82565; 84520; 85027; U0003; C9803

== ENCOUNTER 2021-10-26 06:16 | Day surgery (SDC) | payer MEDICARE, OTHER ==
[2021-10-22 09:40] VITALS: BMI 20.9
[~2021-10-26 06:16] MED LIST: ALPRAZolam 0.25 MG TAB PO PRN; ALPRAZolam 0.5 MG TAB PO PRN; ASPIRIN 325 MG TAB PO STA; SODIUM CHLORIDE 0.9% 1,000 ML in EMPTY BAG 1 BAG IV SCH
[2021-10-26 07:27] VITALS: RESP 16; TEMP 98.1
[2021-10-26] MEDS ORDERED: LIDOCAINE 1% INJ 10MG/ML (20 ML MDV) SQ ONE ×2 (07:45→07:47)
[2021-10-26] MEDS ORDERED: MIDAZOLAM 2 MG/2 ML VIAL IV ONE (07:45)
[2021-10-26] MEDS ORDERED: VERAPAMIL SYRINGE (5 MG/10 ML) INTRAARTER ONE (07:48)
[2021-10-26] MEDS ORDERED: HEPARIN SODIUM 1,000 UN/ML (10ML VL) IV ONE (07:50)
[2021-10-26] MEDS ORDERED: fentaNYL (PF) 50 MCG/ML 5 ML AMP IV ONE (07:55)
[2021-10-26] MEDS ORDERED: IOPAMIDOL-370 125ML BTL INJ ONE ×2 (07:57)
[2021-10-26] MEDS ORDERED: RX INFO: IV CONTRAST WAS GIVEN 1 EACH MISC MISCELLANE PRN (08:10)
--- NOTE | 2021-10-26 08:14 | P.PCN ---
Date of Procedure: 10/26/21 Operative Findings: CARDIAC CATHETERIZATION PERFORMING PHYSICIAN: Rodrigo Guan MD, RPVI PROCEDURE PERFORMED: 1. Selective right and left coronary angiogram 2. 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 Local anesthesia was performed using lidocaine subcutaneously. The right radial artery was cannulated using Seldinger technique, the guidewire passed easily, following that we advanced a 5-Ethiopian sheath dilator assembly, the wire and dilator were removed and sheath was flushed. Following that, 2 mg of verapamil along with 5000 unit heparin were given. Selective right and left coronary angiogram using a 6-Ethiopian JR4 and JL 3.5 catheters. Following that we did left heart catheterization using 6-Ethiopian pigtail catheter. The procedure was completed there was no complication. SELECTIVE CORONARY ANGIOGRAM: The right coronary artery: Is a large caliber vessel and dominant vessel and appeared to be angiographically normal. Left main: Is angiographically normal. The left circumflex: Is a large caliber vessel and nondominant vessel and seems to be angiographically normal. The left anterior descending artery: Is a large caliber vessel. Its angiographically normal. It gives rises into the first and second diagonal branches both appeared to be angiographically normal HEMODYNAMICS: The LVEDP was 10-12 mmHg without significant gradient across aortic CONCLUSION: Normal coronary angiogram Normal sided filling pressures POSTPROCEDURE MANAGEMENT: Medical treatment Follow-up with the patient
[2021-10-26] MEDS ORDERED: SODIUM CHLORIDE 0.9% 1,000 ML IV SCH (08:15)
[2021-10-26 10:16] VITALS: BP 108/70; PULSE 58
== END 2021-10-26 11:48 | disposition home or self-care (01) ==
LOC: CATHCVL 06:16
PROVIDERS: ATTEND Internal Medicine Interventional Cardiology
DX: I42.9 Cardiomyopathy, unspecified (principal); E78.00 Pure hypercholesterolemia, unspecified; I10 Essential (primary) hypertension; I48.0 Paroxysmal atrial fibrillation; Q87.40 Marfan syndrome, unspecified; Z20.822 Contact with and (suspected) exposure to COVID-19; Z98.890 Other specified postprocedural states; Z82.49 Family history of ischemic heart disease and other diseases of the circulatory system; E78.5 Hyperlipidemia, unspecified; F17.210 Nicotine dependence, cigarettes, uncomplicated; Z88.8 Allergy status to other drugs, medicaments and biological substances; Z86.73 Personal history of transient ischemic attack (TIA), and cerebral infarction without residual deficits; Z79.01 Long term (current) use of anticoagulants; Z79.82 Long term (current) use of aspirin; Z79.899 Other long term (current) drug therapy
CPT/HCPCS: 93458; 87635; C1894; J2250; J2001; J3010; J1644; Q9967

== ENCOUNTER 2022-01-25 20:10 | Inpatient (IN) | payer MEDICARE, OTHER ==
--- NOTE | 2022-01-25 20:27 | ED ---
General Adult HPI - General Chief complaint: Weakness Stated complaint: chest pain and an weakness Time Seen by Provider: 01/25/22 20:14 Source: patient, EMS, RN notes reviewed Mode of arrival: EMS Limitations: no limitations - History of Present Illness Initial comments: Patient is a pleasant 41-year-old male presenting to the emergency department with concerns regarding chest discomfort and left-sided weakness. Patient does have history of previous cardiac problems and previous stroke. Onset of symptoms was 6:30. Patient does get chest discomfort frequently, several dozen times previously. Patient does have history of left-sided weakness once previously. Chest discomfort is 8/10. Left sided weakness is left face, left arm, and left leg. Patient has some paresthesias associated. No dyspnea. No vomiting. - Related Data Home Medications Medication Instructions Recorded Confirmed Metoprolol Tartrate [Lopressor] 12.5 mg PO BID 09/14/20 10/26/21 Gabapentin [Neurontin] 100 mg PO TID 05/25/21 10/26/21 Ketorolac [Toradol] 10 mg PO DAILY PRN 06/28/21 10/22/21 Aspirin 81 mg PO DAILY 10/22/21 10/26/21 Previous Rx's Medication Instructions Recorded Atorvastatin [Lipitor] 40 mg PO DAILY #30 tab 05/26/21 Allergies Allergy/AdvReac Type Severity Reaction Status Date / Time nitroglycerin Allergy Rash/Hives Verified 01/25/22 21:44 Review of Systems ROS Statement: Those systems with pertinent positive or pertinent negative responses have been documented in the HPI. ROS Other: All systems not noted in ROS Statement are negative. Constitutional: Denies: fever Eyes: Denies: eye pain ENT: Denies: ear pain Respiratory: Denies: cough, dyspnea Cardiovascular: Reports: chest pain Endocrine: Denies: fatigue Gastrointestinal: Denies: abdominal pain Genitourinary: Denies: dysuria Musculoskeletal: Denies: back pain Skin: Denies: rash Neurological: Reports: as per HPI, weakness. Denies: headache Past Medical History Past Medical History: Coronary Artery Disease (CAD), Chest Pain / Angina, CVA/TIA, Neurologic Disorder Additional Past Medical History / Comment(s): Marfan's, "enlarged aorta" History of Any Multi-Drug Resistant Organisms: None Reported Past Surgical History: Appendectomy, Heart Catheterization Past Psychological History: No Psychological Hx Reported Smoking Status: Current every day smoker Past Alcohol Use History: None Reported Past Drug Use History: None Reported - Past Family History Father Family Medical History: CVA/TIA, Hypertension, Myocardial Infarction ([place]) Additional Family Medical History / Comment(s): from brain aneurysm. Mother Family Medical History: Hypertension Additional Family Medical History / Comment(s): states cancer runs on her side of the family General Exam Limitations: no limitations General appearance: alert, in no apparent distress Head exam: Present: normocephalic Eye exam: Present: normal appearance, PERRL, EOMI ENT exam: Present: normal oropharynx Neck exam: Present: normal inspection Respiratory exam: Present: normal lung sounds bilaterally. Absent: chest wall tenderness Cardiovascular Exam: Present: regular rate, normal rhythm Expanded Peripheral pulses: 2+: Radial (R), Radial (L), Posterior Tibialis (R), Posterior Tibialis (L) GI/Abdominal exam: Present: soft. Absent: tenderness Extremities exam: Present: normal inspection. Absent: pedal edema, calf tendern ess Neurological exam: Present: alert, oriented X3, CN II-XII intact (Except for left facial droop) Expanded Neurological exam: Present: protecting the airway Speech: Present: fluid speech Cranial nerves: EOM's Intact: Normal, Facial Palsy with Forehead Movement: Abnormal Left Sensory exam: Upper Extremity Light Touch: Abnormal Left, Lower Extremity Light Touch: Abnormal Left Motor strength exam: RUE: 5, LUE: 4, RLE: 5, LLE: 4 Eye Response: (4) open spontaneously Motor Response: (6) obeys commands Verbal Response: (5) oriented Psychiatric exam: Present: normal affect, normal mood Skin exam: Present: normal color Course Vital Signs 01/25/22 20:13 Temperature 98.3 F Pulse Rate 69 Respiratory 16 Rate Blood Pressure 145/91 O2 Sat by Pulse 98 Oximetry - Reevaluation(s) Reevaluation #1: 01/25/22 20:29 Patient has exclusion criteria being on L Oquist. Risks felt to outweigh benefit and at this time patient is not being considered a TPA candidate. 01/25/22 20:31 Case discussed with neurology, Dr. Asencio who agrees patient is not a TPA candidate. EKG Findings - EKG Comments: EKG Findings:: Sinus rhythm rate 66. NE 158. QRS 102. QT 373. QTc 386. Normal axis. Incomplete bundle branch block. No acute ST change. Medical Decision Making - Medical Decision Making Patient reevaluated. Patient and family updated. Case discussed with Dr. Stewart, who will admit covering hospital call. - Lab Data Result diagrams: 01/25/22 20:27 01/25/22 20:27 Lab Results 01/25/22 01/25/22 01/25/22 Range/Units 20:27 20: 20:27 WBC 7.6 (3.8-10.6) k/uL RBC 4.97 (4.30-5.90) m/uL Hgb 15.9 (13.0-17.5) gm/dL Hct 48.4 (39.0-53.0) % MCV 97.4 (80.0-100.0) fL MCH 32.0 (25.0-35.0) pg MCHC 32.9 (31.0-37.0) g/dL RDW 12.7 (11.5-15.5) % Plt Count 323 (150-450) k/uL MPV 7.1 Neutrophils % 57 % Lymphocytes % 31 % Monocytes % 5 % Eosinophils % 3 % Basophils % 1 % Neutrophils # 4.4 (1.3-7.7) k/uL Lymphocytes # 2.4 (1.0-4.8) k/uL Monocytes # 0.4 (0-1.0) k/uL Eosinophils # 0.2 (0-0.7) k/uL Basophils # 0.0 (0-0.2) k/uL PT 10.6 (9.0-12.0) sec INR 1.0 (<1.2) APTT 26.8 (22.0-30.0) sec Sodium 137 (137-145) mmol/L Potassium 4.0 (3.5-5.1) mmol/L Chloride 105 (98-107) mmol/L Carbon Dioxide 25 (22-30) mmol/L Anion Gap 7 mmol/L BUN 17 (9-20) mg/dL Creatinine 0.85 (0.66-1.25) mg/dL Est GFR (CKD-EPI)AfAm >90 (>60 ml/min/1.73 sqM) Est GFR (CKD-EPI)NonAf >90 (>60 ml/min/1.73 sqM) Glucose 91 (74-99) mg/dL POC Glucose (mg/dL) (75-99) mg/dL POC Glu Physician'S Assistant ID Calcium 9.2 (8.4-10.2) mg/dL Total Bilirubin 0.4 (0.2-1.3) mg/dL AST 24 (17-59) U/L ALT 42 (4-49) U/L Alkaline Phosphatase 84 (38-126) U/L Troponin I (0.000-0.034) ng/mL Total Protein 6.9 (6.3-8.2) g/dL Albumin 3.9 (3.5-5.0) g/dL 01/25/22 01/25/22 Range/Units 20:27 20:31 WBC (3.8-10.6) k/uL RBC (4.30-5.90) m/uL Hgb (13.0-17.5) gm/dL Hct (39.0-53.0) % MCV (80.0-100.0) fL MCH (25.0-35.0) pg MCHC (31.0-37.0) g/dL RDW (11.5-15.5) % Plt Count (150-450) k/uL MPV Neutrophils % % Lymphocytes % % Monocytes % % Eosinophils % % Basophils % % Neutrophils # (1.3-7.7) k/uL Lymphocytes # (1.0-4.8) k/uL Monocytes # (0-1.0) k/uL Eosinophils # (0-0.7) k/uL Basophils # (0-0.2) k/uL PT (9.0-12.0) sec INR (<1.2) APTT (22.0-30.0) sec Sodium (137-145) mmol/L Potassium (3.5-5.1) mmol/L Chloride (98-107) mmol/L Carbon Dioxide (22-30) mmol/L Anion Gap mmol/L BUN (9-20) mg/dL Creatinine (0.66-1.25) mg/dL Est GFR (CKD-EPI)AfAm (>60 ml/min/1.73 sqM) Est GFR (CKD-EPI)NonAf (>60 ml/min/1.73 sqM) Glucose (74-99) mg/dL POC Glucose (mg/dL) 81 (75-99) mg/dL POC Glu Physician'S Assistant Donte Durán Calcium (8.4-10.2) mg/dL Total Bilirubin (0.2-1.3) mg/dL AST (17-59) U/L ALT (4-49) U/L Alkaline Phosphatase (38-126) U/L Troponin I <0.012 (0.000-0.034) ng/mL Total Protein (6.3-8.2) g/dL Albumin (3.5-5.0) g/dL - Radiology Data Radiology results: report reviewed (CT and CTA revealed no acute process.), image reviewed (Chest x-ray showed no acute process) Disposition Clinical Impression: Chest pain, CVA (cerebral vascular accident) Disposition: ADMITTED IP TO THIS HOSP Is patient prescribed a controlled substance at d/c from ED?: No Referrals: Nonstaff,Physician [REFERRING] - 1-2 days Decision Time: 21:27
[2022-01-25 20:33] LABS: Glucose,Whole Blood 81 mg/dL (75-99)
[2022-01-25 20:43] LABS: Basophils % (A) 1 %; Eosinophils # (A) 0.2 k/uL (0-0.7); Eosinophils % (A) 3 %; HCT 48.4 % (39.0-53.0); HGB 15.9 gm/dL (13.0-17.5); Lymphocytes # (A) 2.4 k/uL (1.0-4.8); Lymphocytes % (A) 31 %; MCHC 32.9 g/dL (31.0-37.0); MCV 97.4 fL (80.0-100.0); Mean Platelet Volume 7.1; Monocytes # (A) 0.4 k/uL (0-1.0); Monocytes % (A) 5 %; Neutrophils # (A) 4.4 k/uL (1.3-7.7); Neutrophils % (A) 57 %; Platelet Count 323 k/uL (150-450); RBC 4.97 m/uL (4.30-5.90); RDW 12.7 % (11.5-15.5); WBC 7.6 k/uL (3.8-10.6)
[2022-01-25 20:52] LABS: Partial Thromboplastin Time 26.8 sec (22.0-30.0); Prothrombin Time 10.6 sec (9.0-12.0)
[2022-01-25 20:53] LABS: ALT 42 U/L (4-49); AST 24 U/L (17-59); African American GFR (CKD) >90 (>60 ml/min/1.73 sqM); Albumin 3.9 g/dL (3.5-5.0); Alkaline Phosphatase 84 U/L (38-126); Anion Gap 7 mmol/L; Blood Urea Nitrogen 17 mg/dL (9-20); Calcium 9.2 mg/dL (8.4-10.2); Carbon Dioxide 25 mmol/L (22-30); Chloride 105 mmol/L (98-107); Glucose 91 mg/dL (74-99); Non-African American GFR(CKD) >90 (>60 ml/min/1.73 sqM); Sodium 137 mmol/L (137-145); Total Bilirubin 0.4 mg/dL (0.2-1.3); Total Protein 6.9 g/dL (6.3-8.2)
--- NOTE | 2022-01-25 21:04 | CT ---
EXAMINATION TYPE: CT brain wo con for TPA DATE OF EXAM: 01/25/2022 COMPARISON: 06/28/2021 HISTORY: left side weakness CT DLP: 1087.8 mGycm Automated exposure control for dose reduction was used. The ventricles have normal size. There is no mass effect normal line shift. There is no sign of intra cranial hemorrhage. Calvarium is intact. Skull base is intact. IMPRESSION: Normal unenhanced head CT scan. No change.
--- NOTE | 2022-01-25 21:27 | CT ---
EXAMINATION TYPE: CT angio head neck DATE OF EXAM: 01/25/2022 COMPARISON: 06/28/2021 HISTORY: Neuro deficit, acute, stroke suspected, left side weakness CT DLP: 548.1 mGycm Automated exposure control for dose reduction was used. CONTRAST: Performed with IV Contrast, patient injected with 65 mL of Isovue 370. Images obtained from the aortic arch to the vertex of the brain without IV contrast. There are Three- D postprocessed images. There is normal branching pattern of the great vessels on the aortic arch. There is arterial flow in both subclavian arteries. There is arterial flow within the common internal and external carotid lorena margarette bilaterally. There is wide patency of the carotid artery bifurcations. There is arterial flow in both vertebral arteries. There is arterial flow in the vertebral basilar artery system. There is no evidence of carotid or vertebral artery aneurysm or dissection. No evidence of stenosis. There is arterial flow in the anterior middle and posterior cerebral arteries. No mass effect. No rangel dence of intracranial aneurysm or neovascularity. No evidence of intracranial hemodynamic arterial st enosis. There is normal enhancement of the venous sinuses. IMPRESSION: Negative CT angiogram of the brain. Negative CT angiogram of the neck. No adverse change compared to old exam.
--- NOTE | 2022-01-25 21:33 | XR ---
EXAMINATION TYPE: XR chest 1V DATE OF EXAM: 01/25/2022 COMPARISON: 06/28/2021 HISTORY: Altered mental status TECHNIQUE: FINDINGS: Heart and mediastinum are normal. Lungs are clear. Diaphragm is normal. Bony thorax appears normal. IMPRESSION: Normal chest. No change.
[2022-01-25] MEDS ORDERED: MORPHINE SULFATE 4 MG/ML SYRINGE IVP STA (21:44)
[2022-01-25] MEDS ORDERED: ASPIRIN 81 MG PO STA (21:46)
[2022-01-26] MEDS: HYDROcodone/APAP 5-325MG 1 EACH TAB PO PRN ×3 (00:52→14:38)
[2022-01-26] MEDS: GABAPENTIN 100 MG CAP PO SCH ×2 (08:23→15:42)
[2022-01-26] MEDS ORDERED: ATORVASTATIN 40 MG TAB PO SCH (09:00)
[2022-01-26] MEDS ORDERED: ASPIRIN 325 MG TAB PO SCH (09:00)
[2022-01-26] MEDS ORDERED: APIXABAN 5 MG TAB PO SCH (09:00)
[2022-01-26] MEDS ORDERED: METOPROLOL TARTRATE 25 MG TAB PO SCH (09:00)
[2022-01-26 09:47] LABS: LDL Cholesterol,Calculated 101.1 mg/dL (0.0-131.0); VLDL Calculation 16.32 mg/dL (5.00-40.00)
[2022-01-26 11:11] VITALS: TEMP 96.9
[2022-01-26 12:19] VITALS: BP 110/67; PULSE 52; RESP 17
--- NOTE | 2022-01-26 12:26 | P.CNNES ---
History of Present Illness Consult date: 01/26/22 Requesting physician: Kodi Claros Reason for Consult: cva History of Present Illness: This is a 41-year-old gentleman with history of left-sided weakness and numbness and that he is known to our neurology team and the last time he was seen by our team was felt probable due to conversion disorder, reported history of atrial fibrillation on Eliquis, hypertension, tobacco use who presented emergency department regarding chest pain and left-sided weakness. He said the left sided weakness is recent but could not tell me how long ago it started. Patient does have history of left-sided weakness. Patient is taken Eliquis 5 mg 1 tablet twice a day, aspirin 81 mg daily, Lipitor 40 mg daily. Patient stated he is compliant taking the medication. He denies following-up with neurologist. Was notified that patient complaining of left facial weakness in addition. Patient is known to our neurology team and he was last seen by Dr. Colby (Neuro- Hospitalist) on 05/26/2021 for left-sided weakness numbness and he felt was probably due to convergence order. The MRI of the brain was negative. The CTA of the head and neck is was also negative. Patient had a hemoglobin A1c which was 5.4. He was seen by Estrada multiple times for the same presentation of left-sided weakness as well as a sensory loss. Some of the work-up: CBC with differential, chemistry panel, PT PTT and INR is within normal limits CT of the head is reported as normal on has had computed tomography scan. No change. I personally reviewed the CT of the head and I agree with the report. CT angiography of the head and neck was reported as negative. No adverse change compared to old exam. Lipid panels triglyceride of 81, cholesterol is 150, LDL of the 10 and HDL is 32. Review of Systems Review of system: The 12 point system was reviewed and apparent positive and negative per HPI. Past Medical History Past Medical History: Coronary Artery Disease (CAD), Chest Pain / Angina, CVA/TIA, Neurologic Disorder Additional Past Medical History / Comment(s): Marfan's, "enlarged aorta" History of Any Multi-Drug Resistant Organisms: None Reported Past Surgical History: Appendectomy, Heart Catheterization Additional Past Surgical History / Comment(s): Hx of atrioseptal defect with repair. Past Anesthesia/Blood Transfusion Reactions: No Reported Reaction Past Psychological History: No Psychological Hx Reported Smoking Status: Current every day smoker Past Alcohol Use History: None Reported Past Drug Use History: None Reported - Past Family History Father Family Medical History: CVA/TIA, Hypertension, Myocardial Infarction ([place]) Additional Family Medical History / Comment(s): from brain aneurysm. Mother Family Medical History: Hypertension Additional Family Medical History / Comment(s): states cancer runs on her side of the family Medications and Allergies Home Medications Medication Instructions Recorded Confirmed Type Metoprolol Tartrate [Lopressor] 12.5 mg PO HS 09/14/20 01/25/22 History Gabapentin [Neurontin] 100 mg PO TID 05/25/21 01/25/22 History Atorvastatin [Lipitor] 40 mg PO DAILY #30 tab 05/26/21 01/25/22 Rx Aspirin 81 mg PO DAILY 10/22/21 01/25/22 History Apixaban [Eliquis] 5 mg PO BID 01/25/22 01/25/22 History Metoprolol Tartrate [Lopressor] 25 mg PO DAILY 01/25/22 01/25/22 History Allergies Allergy/AdvReac Type Severity Reaction Status Date / Time nitroglycerin Allergy Rash/Hives Verified 01/25/22 21:44 Physical Examination - Vital Signs Vital Signs: Vital Signs Temp Pulse Pulse Resp BP BP Pulse Ox 01/26/22 08:12 97.7 F 58 L 18 104/70 96 01/26/22 04:00 98.0 F 58 L 17 130/80 97 01/26/22 02:00 69 16 01/26/22 00:00 98.3 F 69 16 132/81 98 01/25/22 21:57 98.1 F 66 16 124/80 98 01/25/22 21:48 98.4 F 60 18 120/88 98 01/25/22 20:13 98.3 F 69 16 145/91 98 Intake and Output 01/25/22 01/26/22 01/26/22 22:59 06:59 14:59 Other: Voiding Method Urinal Weight 74.843 kg GENERAL: The patient is lying in bed and is not in acute distress. CHEST: The heart rate is regular rate rhythm. No murmurs to auscultation. No carotid bruit bilaterally. LUNG: Clear to auscultation bilaterally no wheezing noted throughout. Not labored breathing. ABDOMEN/GI: Bowel sounds present in all 4 quadrants. No tenderness to palpation throughout. NEUROLOGICAL: Higher mental function: The patient is awake, alert, oriented to self, place and time. Patient is following commands. No aphasia and no neglect. Cranial nerves: The pupils are round, equal and reactive to light and accommodation. Visual thomas are full to confrontation throughout. Slight extropia on left eye. Extraocular movement is intact no nystagmus is noted. Facial sensation is normal to touch throughout. The facial strength is normal throughout. Hearing is normal bilaterally to hand rub. Tongue is midline and moved [id number] without any difficulty. No dysarthria is noted. Shoulder shrug is normal bilaterally. Motor: Gait is deferred. The strength is 4 over the left side but with mo tivation strength improve. Left ankle dorsiflexion is 1-2/5 (old per patient and was told he has foot drop and crosses his feet). Otherwise 5 over 5 throughout. Normal tone and bulk. Cerebellum: Normal finger to nose bilaterally. Sensation: Sensation is normal to touch throughout. Reflexes (right/left): 2+ throughout. Plantars are downgoing bilaterally. Results - Laboratory Findings CBC and BMP: 01/25/22 20:27 01/25/22 20:27 Abnormal Lab Findings: Abnormal Labs 01/26/22 06:01 HDL Cholesterol 32.60 L Assessment and Plan Assessment: Left-sided weakness, left facial weakness numbness and had similar presentation multiple times and all the workup has been negative in the past and the most current CT as well as CT angiography is negative. On my examination he did not have left facial weakness and with motivation left side improves. Rule out possible conversion disorder Reported acute chest pain Reported history of atrial fibrillation on Eliquis Tobacco use Plan: Patient had a CT, CTA head and neck during this hospital admission and it's negative. He had multiple presentation in the past for the same presentation and workup was negative. He had a MRI of the brain on 05/25/2021 which was negative for stroke (and presented for left sided weakness). From a neurologic perspective no further workup is needed at this time. Will continue to evaluate patient. I consulted psychiatry team 2-D echo is ordered by the ED team Patient was resumed on his home dose of Eliquis 5 mg 1 tablet twice a day as well as start on aspirin 81 mg daily. He was resumed on Lipitor 40 mg daily. I'll not modify any of his medication and will defer his A-fib management to cardiology team. 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 Recommend EMG with NCS of left lower extremity as outpatient. We'll defer the rest of the medical management to the primary team For DVT prophylaxis patient is on Eliquis Upon discharge recommend the patient to follow-up with a neurologist as well as psychiatrist as an outpatient The plan is discussed with patient and primary team. Thank you for the consultation. Hung Brady M.D. Tatiana-Jose Antonio Time with Patient: Greater than 30
--- NOTE | 2022-01-26 12:30 | P.CRDCN ---
History of Present Illness History of present illness: This is a 40-year-old male with a past medical history significant for multiple CVAs (last he states was over summer) follows with neurology at [facility], atrial septal defect s/p repair, paroxysmal atrial fibrillation on Eliquis, Marfan syndrome with an enlarged aorta, and nicotine dependence. Patient follows with Dr. Guan. We have been asked to see the patient in consultation for chest pain. Patient examined at the bedside. Patient presented to the hospital to emergency department with complaints of left-sided weakness, left facial droop, headache and left-sided chest pain. He states that his symptoms started at 6 PM on 01/25/2022. Code stroke was called in the ER, and patient underwent stat brain CT with no acute intracranial abnormality. He describes his chest pain as burning and throbbing, located process chest. It radiated to his left shoulder. He denies any specific aggravating or alleviating factors. He denies any shortness of breath, palpitations, numbness, dizziness. He denies any nausea or vomiting. He does endorse associated with diaphoresis. He continues to have chest pain this morning. Repeat EKG revealed sinus rhythm with no acute ST or T-wave abnormalities. His cardiac enzymes were negative 3. Patient also had a recent right and left cardiac catheterization on 10/26/2021 which revealed normal coronary arteries and normal sided filling pressures. DIAGNOSTICS -EKG reveals sinus mechanism, heart rate 66, incomplete left bundle branch block, with no signs of acute ischemia.EKG was similar findings, repeat EKG also a smaller findings -Chest xray negative for acute process -CT Angio- negative for acute process -CT of the brain: Negative for acute process -Laboratory data: Troponin negative 3, CBC unremarkable, sodium 137, potassium 4.0, BUN 17, serum troponin 0.8 -Lexiscan stress test 08/2021 was negative for reversible ischemia -Cath 10/2021- Normal coronary arteries -Holter Monitor 08/2021- sinus mechanism with one episode of supraventricular tachycardia. Heart rates in the 80s -Current home cardiac medications include Eliquis 5mg BID, aspirin 81 mg daily, and metoprolol tartrate 12.5 mg nightly and metoprolol tartrate 25mg morning -Most recent echocardiogram 05/2021 EF 45-50% with posterior LV wall hypokinesis. REVIEW OF SYSTEMS: At the time of my exam: CONSTITUTIONAL: Denies fever or chills. HEENT: Denies blurred vision, vision changes, or eye pain. Denies hemoptysis CARDIOVASCULAR: Denies chest pain. Denies orthopnea. Denies PND. Denies palpitations RESPIRATORY: Denies shortness of breath. GASTROINTESTINAL: Denies abdominal pain. Denies nausea or vomiting. HEMATOLOGIC: Denies bleeding disorders. GENITOURINARY: Denies any blood in urine. SKIN: Denies pruitis. Denies rash. PHYSICAL EXAM: VITAL SIGNS: Reviewed. GENERAL: Well-developed in no acute distress. HEENT: Head is normocephalic. Pupils are equal, round. Sclerae anicteric. Mucous membranes of the mouth are moist. Neck supple. No JVD or thyromegaly LUNGS: Respirations even and unlabored. Lungs essentially clear to auscultation bilaterally. HEART: Regular rate and rhythm. S1 and S2 heard. ABDOMEN: Soft. Nondistended. Nontender. EXTREMITIES: Left sided weakness No clubbing or cyanosis. Peripheral pulses intact. No lower extremity edema NEUROLOGIC: Awake and alert. Oriented x 3. Left arm weak than left with grasp. Left leg also weak but patient with history of left foot drop ASSESSMENT: Left sided weakness, left sided facial droop and headache Chest pain, atypical, acute coronary syndrome as been ruled out, troponins negative 3, Recent cath 10/2021 with normal coronary arteries Paroxysmal atrial fibrillation, on anticoagulation with Eliquis Nonischemic cardiomyopathy EF 45% History of Multiple CVAs Marfan syndrome with enlarged aorta per patient History of atrial septal defect s/p repair Nicotine dependence Family history of premature coronary artery disease PLAN: Patient with recent cardiac cath 10/2021 with normal coronary arteries Obtain 2D echocardiogram Continue neurology workup Continue anticoagulation with Eliquis Continue aspirin, metoprolol, and Lipitor Nurse practitioner note has been reviewed by physician. Signing provider agrees with the documented findings, assessment, and plan of care. Past Medical History Past Medical History: Coronary Artery Disease (CAD), Chest Pain / Angina, CVA/TIA, Neurologic Disorder Additional Past Medical History / Comment(s): Marfan's, "enlarged aorta" History of Any Multi-Drug Resistant Organisms: None Reported Past Surgical History: Appendectomy, Heart Catheterization Additional Past Surgical History / Comment(s): Hx of atrioseptal defect with repair. Past Anesthesia/Blood Transfusion Reactions: No Reported Reaction Past Psychological History: No Psychological Hx Reported Smoking Status: Current every day smoker Past Alcohol Use History: None Reported Past Drug Use History: None Reported - Past Family History Father Family Medical History: CVA/TIA, Hypertension, Myocardial Infarction ([place]) Additional Family Medical History / Comment(s): from brain aneurysm. Mother Family Medical History: Hypertension Additional Family Medical History / Comment(s): states cancer runs on her side of the family Medications and Allergies Home Medications Medication Instructions Recorded Confirmed Type Metoprolol Tartrate [Lopressor] 12.5 mg PO HS 09/14/20 01/25/22 History Gabapentin [Neurontin] 100 mg PO TID 05/25/21 01/25/22 History Atorvastatin [Lipitor] 40 mg PO DAILY #30 tab 05/26/21 01/25/22 Rx Aspirin 81 mg PO DAILY 10/22/21 01/25/22 History Apixaban [Eliquis] 5 mg PO BID 01/25/22 01/25/22 History Metoprolol Tartrate [Lopressor] 25 mg PO DAILY 01/25/22 01/25/22 History Allergies Allergy/AdvReac Type Severity Reaction Status Date / Time nitroglycerin Allergy Rash/Hives Verified 01/25/22 21:44 Physical Exam Vitals: Vital Signs Temp Pulse Pulse Resp BP BP Pulse Ox 01/26/22 04:00 98.0 F 58 L 17 130/80 97 01/26/22 02:00 69 16 01/26/22 00:00 98.3 F 69 16 132/81 98 01/25/22 21:57 98.1 F 66 16 124/80 98 01/25/22 21:48 98.4 F 60 18 120/88 98 01/25/22 20:13 98.3 F 69 16 145/91 98 Intake and Output 01/25/22 01/26/22 01/26/22 22:59 06:59 14:59 Other: Voiding Method Urinal Weight 74.843 kg Results 01/25/22 20:27 01/25/22 20:27 Cardiac Enzymes 01/25/22 01/25/22 01/25/22 Range/Units 20:27 20:27 22:16 AST 24 (17-59) U/L Troponin I <0.012 <0.012 (0.000-0.034) ng/mL 01/26/22 Range/Units 00:57 AST (17-59) U/L Troponin I <0.012 (0.000-0.034) ng/mL Coagulation 01/25/22 Range/Units 20:27 PT 10.6 (9.0-12.0) sec APTT 26.8 (22.0-30.0) sec CBC 01/25/22 Range/Units 20:27 WBC 7.6 (3.8-10.6) k/uL RBC 4.97 (4.30-5.90) m/uL Hgb 15.9 (13.0-17.5) gm/dL Hct 48.4 (39.0-53.0) % Plt Count 323 (150-450) k/uL Comprehensive Metabolic Panel 01/25/22 Range/Units 20:27 Sodium 137 (137-145) mmol/L Potassium 4.0 (3.5-5.1) mmol/L Chloride 105 (98-107) mmol/L Carbon Dioxide 25 (22-30) mmol/L BUN 17 (9-20) mg/dL Creatinine 0.85 (0.66-1.25) mg/dL Glucose 91 (74-99) mg/dL Calcium 9.2 (8.4-10.2) mg/dL AST 24 (17-59) U/L ALT 42 (4-49) U/L Alkaline Phosphatase 84 (38-126) U/L Total Protein 6.9 (6.3-8.2) g/dL Albumin 3.9 (3.5-5.0) g/dL Current Medications Generic Name Dose Route Start Last Admin Trade Name Freq PRN Reason Stop Dose Admin Hydrocodone Bitart/Acetaminophen 1 each 01/26/22 00:42 01/26/22 00:52 Hydrocodone/Apap 5-325mg 1 Each Tab PO 1 each Q6HR PRN Administration Pain Apixaban 5 mg 01/26/22 09:00 Apixaban 5 Mg Tab PO BID [facility] Protocol Aspirin 325 mg 01/26/22 09:00 Aspirin 325 Mg Tab PO DAILY [facility] Atorvastatin Calcium 40 mg 01/26/22 09:00 Atorvastatin 40 Mg Tab PO DAILY [facility] Gabapentin 100 mg 01/26/22 09:00 Gabapentin 100 Mg Cap PO TID [facility] Metoprolol Tartrate 25 mg 01/26/22 09:00 Metoprolol Tartrate 25 Mg Tab PO DAILY KARRIE Metoprolol Tartrate 12.5 mg 01/26/22 21:00 Metoprolol Tartrate 12.5 Mg Tab PO HS KARRIE Sodium Chloride 10 ml 01/26/22 09:00 Sodium Chloride 0.9% Flush 10 Ml Syringe IV BID KARRIE Intake and Output 01/25/22 01/26/22 01/26/22 22:59 06:59 14:59 Other: Voiding Method Urinal Weight 74.843 kg 01/25/22 20:27 01/25/22 20:27
--- NOTE | 2022-01-26 13:00 | ECHOF ---
Referral Reason:cp, cva MEASUREMENTS -------- HEIGHT: 182.9 cm WEIGHT: 74.8 kg BP: 130/80 IVSd: 1.0 cm (0.6 - 1.1) LVIDd: 4.5 cm (3.9 - 5.3) LVPWd: 1.1 cm (0.6 - 1.1) EDV(Teich): 92 ml IVSs: 1.6 cm LVIDs: 3.2 cm LVPWs: 1.7 cm %IVS Thck: 62 % ESV(Teich): 41 ml EF(Teich): 56 % %FS: 29 % SV(Teich): 52 ml LA Diam: 3.2 cm (2.7 - 3.8) RVIDd: 3.0 cm (< 3.3) LALs A4C: 4.4 cm LAAs A4C: 13.7 cm LAESV A-L A4C: 36 ml LAESV MOD A4C: 27 ml LALs A2C: 5.1 cm LAAs A2C: 13.5 cm LAESV A-L A2C: 31 ml LAESV MOD A2C: 30 ml LAESV(A-L): 35 ml LAESV Index (A-L): 18.06 ml/m HR_2Ch_Q: 50 bpm LVVED_2Ch_Q: 75 ml LVVES_2Ch_Q: 39 ml LVEF_2Ch_Q: 48 % LVSV_2Ch_Q: 36 ml LVCO_2Ch_Q: 1.8 l/min LVLs_2Ch_Q: 7.4 cm LVLd_2Ch_Q: 8.6 cm Ao Diam: 3.9 cm (2.0 - 3.7) AV Cusp: 2.6 cm (1.5 - 2.6) EPSS: 0.8 cm MV E Max: 0.62 m/s MV DecT: 367 ms MV Dec Dewitt: 1.7 m/s MV A Max: 0.70 m/s MV E/A Ratio: 0.88 MV PHT: 106 ms AV Vmax: 0.91 m/s AV maxP.33 mmHg MV EF SLOPE: 151.60 mm/s (70 - 150) MV EXCURSION: 25.81 mm (> 18.000) FINDINGS -------- Resting bradycardia (HR<60bpm). This was a technically excellent study. The left ventricular size is normal. Left ventricular wall thickness is normal. Overall left vent ricular systolic function is low-normal with, an EF between 50 - 55 %. The right ventricle is normal in size. Normal LA size by volume 22+/-6 ml/m2. The right atrium is normal in size. There is an interatrial closure device in place without evidence of shunt. The aortic valve is trileaflet, and appears structurally normal. No aortic stenosis or regurgitation. There is trace mitral regurgitation. The tricuspid valve appears structurally normal. Unable to estimate RVSP due to inadequate TR jet s pectral doppler profile. Trace/mild (physiologic) pulmonic regurgitation. The aortic root is dilated measuring 3.9cm. Normal inferior vena cava with normal inspiratory collapse consistent with estimated right atrial pre ssure of 5 mmHg. There is no pericardial effusion. CONCLUSIONS -------- 1. The left ventricular size is normal. 2. Left ventricular wall thickness is normal. 3. Overall left ventricular systolic function is low-normal with, an EF between 50 - 55 %. 4. There is an interatrial closure device in place without evidence of shunt. 5. There is trace mitral regurgitation. 6. Trace/mild (physiologic) pulmonic regurgitation. 7. The aortic root is dilated measuring 3.9cm. 8. There is no pericardial effusion. 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
--- NOTE | 2022-01-26 13:50 | P.CN ---
Psychiatric Consult - . Consult date: 01/26/22 Consult:: 01/26/22 13:48 IDENTIFYING DATA: This patient is a 41 year-old Male who presented to the hospital on 01/25/2022 for for chest pain and weakness. HISTORY OF PRESENT ILLNESS: The patient presented to the hospital on on 01/25/2022 for chest pain and discomfort. Psychiatry has been consulted for evaluation of a possible conversion disorder. As per chart review, the patient presented to the hospital on for left sided weakness and there was also concern for conversion disorder. MRI at the time was negative and CTA of the head was also negative. CT during this admission was also noted to be normal with no acute pathological findings noted. This provider attempted to interview the patient regarding possible conversion and any possible psychological stressors that may manifest as physical illness however the patient became very agitated and verbally abusive and yelled many profanities at this provider and refused to be interviewed. PAST PSYCHIATRIC HISTORY: Unable to assess. Patient refused interview. PAST MEDICAL HISTORY: Past Medical History: Coronary Artery Disease (CAD), Chest Pain / Angina, CVA/TIA, Neurologic Disorder Additional Past Medical History / Comment(s): Marfan's, "enlarged aorta" History of Any Multi-Drug Resistant Organisms: None Reported Past Surgical History: Appendectomy, Heart Catheterization Additional Past Surgical History / Comment(s): Hx of atrioseptal defect with repair. Past Anesthesia/Blood Transfusion Reactions: No Reported Reaction Past Psychological History: No Psychological Hx Reported Smoking Status: Current every day smoker Past Alcohol Use History: None Reported Past Drug Use History: None Reported ALLERGIES: Nitrogylcerin. CHEMICAL DEPENDENCY HISTORY: Unable to assess. As per chart review, smokes everyday. FAMILY PSYCHIATRIC/SUBSTANCE USE HISTORY: Unable to assess. SOCIAL HISTORY: Unable to assess. As per chart review patient is . MENTAL STATUS EXAM: General Appearance: Patient appears to be stated age, with significant facial hair and is wearing glasses and his hat. He is well-groomed with no signs of facial droop. Behavior: No focal neurological deficits are noted. Patient displays significant anger and moves his arms and speaks very clearly as he yells at this provider. He is grasping his phone and waving his arms at this provider. Speech: Patient's speech is spontaneous, loud, difficult to interrupt. Repetitive. "I AM GOING TO [place]. I'M NOT CRAZY." Mood/Affect: Mood is angry. Affect is agitated. Suicidality/Homicidality: Unable to assess. Patient refuses evaluation. Perceptions: Unable to assess. Patient refuses evaluation. Though content/process: Unable to assess. Patient refuses evaluation. Memory and concentration: Unable to assess. Patient refuses evaluation. Judgment and insight: Unable to assess. Patient refuses evaluation. Vital Signs Temp 96.9 F L 01/26/22 11:09 Pulse 52 L 01/26/22 12:00 Resp 17 01/26/22 12:00 BP 110/67 01/26/22 12:00 Pulse Ox 99 01/26/22 12:00 Intake & Output 01/25/22 01/26/22 01/26/22 18:59 06:59 18:59 Weight 74.843 kg Other: Voiding Method Urinal Toilet Laboratory Results WBC 7.6 k/uL (3.8-10.6) 01/25/22 20: RBC 4.97 m/uL (4.30-5.90) 01/25/22 20: Hgb 15.9 gm/dL (13.0-17.5) 01/25/22 20: Hct 48.4 % (39.0-53.0) 01/25/22: MCV 97.4 fL (80.0-100.0) 01/25/22 20: MCH 32.0 pg (25.0-35.0) 01/25/22: MCHC 32.9 g/dL (31.0-37.0) 01/25/22: RDW 12.7 % (11.5-15.5) 01/25/22 20: Plt Count 323 k/uL (150-450) 01/25/22 20: MPV 7.1 01/25/22 20: Neutrophils % 57 % 01/25/22 20: Lymphocytes % 31 % 01/25/22 20: Monocytes % 5 % 01/25/22 20: Eosinophils % 3 % 01/25/22 20: Basophils % 1 % 01/25/22 20: Neutrophils # 4.4 k/uL (1.3-7.7) 01/25/22: Lymphocytes # 2.4 k/uL (1.0-4.8) 01/25/22 20: Monocytes # 0.4 k/uL (0-1.0) 01/25/22: Eosinophils # 0.2 k/uL (0-0.7) 01/25/22 20: Basophils # 0.0 k/uL (0-0.2) 01/25/22: PT 10.6 sec (9.0-12.0) 01/25/22 INR 1.0 (<1.2) 01/25/22 APTT 26.8 sec (22.0-30.0) 01/25/22 Sodium 137 mmol/L (137-145) 01/25/22 Potassium 4.0 mmol/L (3.5-5.1) 01/25/22 Chloride 105 mmol/L (98-107) 01/25/22 Carbon Dioxide 25 mmol/L (22-30) 01/25/22 Anion Gap 7 mmol/L 01/25/22 BUN 17 mg/dL (9-20) 01/25/22: Creatinine 0.85 mg/dL (0.66-1.25) 01/25/22 Est GFR (CKD-EPI)AfAm >90 (>60 ml/min/1.73 sqM) 01/25/22 Est GFR (CKD-EPI)NonAf >90 (>60 ml/min/1.73 sqM) 01/25/22 Glucose 91 mg/dL (74-99) 01/25/22: POC Glucose (mg/dL) 81 mg/dL (75-99) 01/25/22 20: POC Glu Emergency Dispatcher ID Donte Dangelo 01/25/22: Calcium 9.2 mg/dL (8.4-10.2) 01/25/22: Total Bilirubin 0.4 mg/dL (0.2-1.3) 01/25/22: AST 24 U/L (17-59) 01/25/22 ALT 42 U/L (4-49) 01/25/22:27 Alkaline Phosphatase 84 U/L (38-126) 01/25/22 20:27 Troponin I <0.012 ng/mL (0.000-0.034) 01/26/22 00:57 Total Protein 6.9 g/dL (6.3-8.2) 01/25/22 20:27 Albumin 3.9 g/dL (3.5-5.0) 01/25/22 20:27 Triglycerides 81.60 mg/dL (0.00-149.00) 01/26/22 06:01 Cholesterol 150.00 mg/dL (0.00-200.00) 01/26/22 06:01 LDL Cholesterol, Calc 101.1 mg/dL (0.0-131.0) 01/26/22 06:01 VLDL Cholesterol, Calc 16.32 mg/dL (5.00-40.00) 01/26/22 06:01 HDL Cholesterol 32.60 mg/dL (40.00-60.00) L 01/26/22 06:01 Cholesterol/HDL Ratio 4.60 Ratio 01/26/22 06:01 IMPRESSIONS: Suspected Somatic Symptom disorder - Patient refuses evaluation so clear diagnosis cannot be made at this time. This is a diagnosis of exclusion. As per review, medical work up has revealed no acute pathology to explain his symptoms. PLAN: -At this time patient DOES NOT meet criteria for inpatient psychiatric admission. -Patient refuses psychiatric evaluation however despite reports of neurological deficits and facial droop, the patient displays none of this at this time. He is very defensive for an evaluation despite efforts from this provider. -Psychiatry will sign off at this point, please contact with any questions. 01/26/22 13:49
--- NOTE | 2022-01-26 20:47 | P.HPIM ---
History of Present Illness H&P Date: 01/26/22 Chief Complaint: Chest pain and left-sided weakness Patient is a 41-year-old man with a known history of modifiers, and [place], coronary artery disease with history of cardiac catheterization, history of CVA/TIA and recent work-up including MRI of the brain is negative for any infarct, currently everyday smoker presents to ER with complaints of chest pain and left-sided weakness. Patient states that he started having left-sided weakness and facial droop around 6:30 AM yesterday. At the same time patient developed chest discomfort and he has been having chest pains for the past 2 days. 8 of 10 in severity. No associated headache or dizziness or lightheadedness. No diaphoresis. No nausea vomiting or abdominal pain or diarrhea. Patient was seen by neurology in May 2021 for left-sided weakness and numbness and thought it is due to conversion disorder. Work-up for the stroke including MRI of the brain was negative and CTA head and neck is also negative. A1c level was 5.4. Patient states that he does have history of atrial fibrillation and is on anticoagulation with Eliquis. Laboratory data showed WBC 7.6 hemoglobin 15.9 and platelets 323 INR 1.0 sodium 137 potassium 4.0 chloride 105 BUN 17 and creatinine 0.85 blood sugar is 91 and troponin x3 - LDL 101 CT head showed normal enhancement head CT. No change. CT angio of the head and neck no advanced changes compared to old exam. Chest x-ray Showed normal chest. No change. EKG showed sinus rhythm. 2D echocardiogram was done this morning showed normal EF and no significant valvular abnormalities noted. Review of Systems Constitutional: Patient denies any fever or chills . No generalized weakness or weight loss. Abdomen: Patient denied nausea vomiting and diarrhea and abdominal pain. Cardiovascular: Patient denies any chest pain or short of breath no palpitations. Respiratory: patient denied any cough or sputum production. No shortness of breath Neurologic: Patient denied any numbness or tingling headache. Patient does complain of left-sided weakness and left facial weakness. Musculoskeletal: Patient denies any complaints of joint swelling or deformity. Skin: Negative Psychiatric: Negative Endocrine: No heat or cold intolerance. No recent weight gain. Genitourinary: No dysuria or hematuria. All other 14 point ROS negative except the above Past Medical History Past Medical History: Coronary Artery Disease (CAD), Chest Pain / Angina, CVA/TIA, Neurologic Disorder Additional Past Medical History / Comment(s): Marfan's, "enlarged aorta" History of Any Multi-Drug Resistant Organisms: None Reported Past Surgical History: Appendectomy, Heart Catheterization Additional Past Surgical History / Comment(s): Hx of atrioseptal defect with repair. Past Anesthesia/Blood Transfusion Reactions: No Reported Reaction Past Psychological History: No Psychological Hx Reported Smoking Status: Current every day smoker Past Alcohol Use History: None Reported Past Drug Use History: None Reported - Past Family History Father Family Medical History: CVA/TIA, Hypertension, Myocardial Infarction ([place]) Additional Family Medical History / Comment(s): from brain aneurysm. Mother Family Medical History: Hypertension Additional Family Medical History / Comment(s): states cancer runs on her side of the family Medications and Allergies Home Medications Medication Instructions Recorded Confirmed Type Metoprolol Tartrate [Lopressor] 12.5 mg PO HS 09/14/20 01/25/22 History Gabapentin [Neurontin] 100 mg PO TID 05/25/21 01/25/22 History Atorvastatin [Lipitor] 40 mg PO DAILY #30 tab 05/26/21 01/25/22 Rx Aspirin 81 mg PO DAILY 10/22/21 01/25/22 History Apixaban [Eliquis] 5 mg PO BID 01/25/22 01/25/22 History Metoprolol Tartrate [Lopressor] 25 mg PO DAILY 01/25/22 01/25/22 History Allergies Allergy/AdvReac Type Severity Reaction Status Date / Time nitroglycerin Allergy Rash/Hives Verified 01/25/22 21:44 Physical Exam Vitals: Vital Signs Temp Pulse Pulse Resp BP BP Pulse Ox 01/26/22 08:12 97.7 F 58 L 18 104/70 96 01/26/22 04:00 98.0 F 58 L 17 130/80 97 01/26/22 02:00 69 16 01/26/22 00:00 98.3 F 69 16 132/81 98 01/25/22 21:57 98.1 F 66 16 124/80 98 01/25/22 21:48 98.4 F 60 18 120/88 98 01/25/22 20:13 98.3 F 69 16 145/91 98 Intake and Output 01/25/22 01/26/22 01/26/22 22:59 06:59 14:59 Other: Voiding Method Urinal Weight 74.843 kg PHYSICAL EXAMINATION: Patient is lying in the bed comfortably, no acute distress, awake alert and oriented.. HEENT: Normocephalic. Neck is supple. Pupils reactive. Nostrils clear. Oral cavity is moist. Neck reveals no JVD, carotid bruits, or thyromegaly. CHEST EXAMINATION: Trachea is central. Symmetrical expansion. Lung thomas clear to auscultation and percussion. CARDIAC: Normal S1, S2 with no gallops. No murmurs ABDOMEN: Soft. Bowel sounds normal. No organomegaly. No abdominal bruits. Extremities: reveal no edema. No clubbing or cyanosis Neurologically awake, alert, oriented x3 with well-coordinated movements. No focal deficits noted Skin: No rash or skin lesions. Psychiatric: nonCooperative. Nonsuicidal Musculoskeletal: No joint swelling or deformity. Normal range of motion. Results CBC & Chem 7: 01/25/22 20:27 01/25/22 20:27 Thrombosis Risk Factor Assmnt - DVT/VTE Prophylaxis DVT/VTE Prophylaxis: Pharmacologic Prophylaxis ordered - Choose All That Apply Any of the Below Risk Factors Present?: Yes Each Factor Represents 1 point: Age 41-60 years Other Risk Factors: No Other congenital or acquired thrombophilia - If yes, enter type in comment: No Thrombosis Risk Factor Assessment Total Risk Factor Score: 1 Thrombosis Risk Factor Assessment Level: Low Risk Assessment and Plan Assessment: Left-sided weakness and left-sided facial weakness. Patient had similar presentation multiple times and work-up has been negative including MRI of the brain in May [address] angiogram. Possible conversion disorder is being considered. Atypical chest pain. ACS ruled out. Patient had cardiac catheterization in October 2021 with normal coronaries. Paroxysmal atrial fibrillation on anticoagulation with Eliquis. History of nonischemic cardiomyopathy ejection fraction 45%. Improved now. History of multiple presentations with CVA/TIA Marfan syndrome with enlarged aorta as per patient History of atrial septal defect status post repair Ongoing nicotine addiction Family history of coronary disease Plan: Patient will be continued on telemetry monitoring. Serial EKG and troponin x3 - . Stroke work-up including CT head, CT angiogram of the head and neck is negative for any acute events. Patient is maintaining sinus rhythm. Continue with metoprolol Eliquis and aspirin and Lipitor. Cardiology and neurology has seen the patient. Recommends no further work-up at this time. Patient complains of still having left-sided weakness and possible conversion disorder is is being considered. Psychiatry was consulted as well. Continue to follow and monitor another 24 hours.. Time with Patient: Greater than 30
[2022-01-26] MEDS ORDERED: METOPROLOL TARTRATE 12.5 MG TAB PO SCH (21:00)
[2022-01-27] MEDS ORDERED: ASPIRIN 81 MG PO SCH (09:00)
== END 2022-01-26 16:08 | disposition left against medical advice (07) | DRG 880 ==
LOC: EC 20:10 → 3SCARD 21:47
PROVIDERS: ADMIT Internal Medicine; ATTEND Internal Medicine
DX: F44.9 Dissociative and conversion disorder, unspecified (principal); I42.8 Other cardiomyopathies; Q87.40 Marfan syndrome, unspecified; R07.89 Other chest pain; F17.210 Nicotine dependence, cigarettes, uncomplicated; I10 Essential (primary) hypertension; I25.10 Atherosclerotic heart disease of native coronary artery without angina pectoris; I44.7 Left bundle-branch block, unspecified; I48.0 Paroxysmal atrial fibrillation; R29.810 Facial weakness; Z88.8 Allergy status to other drugs, medicaments and biological substances; Z86.73 Personal history of transient ischemic attack (TIA), and cerebral infarction without residual deficits; Z87.74 Personal history of (corrected) congenital malformations of heart and circulatory system; Z79.01 Long term (current) use of anticoagulants; Z79.82 Long term (current) use of aspirin; Z79.899 Other long term (current) drug therapy; Z82.3 Family history of stroke; Z82.49 Family history of ischemic heart disease and other diseases of the circulatory system; Z80.9 Family history of malignant neoplasm, unspecified
CPT/HCPCS: 36415; 70450; 70496; 70498; 71045; 80053; 80061; 84484; 85025; 85610; 85730; 93005; 93306; 99285